=== PATIENT | female | born 1985 | race Caucasian/White ===

== ENCOUNTER 2021-09-21 12:43 | Outpatient (RCR) | payer MEDICAID, MEDICARE, OTHER | END 2021-10-19 | disposition home or self-care (01) | LOC: ONC 12:43 | PROVIDERS: ATTEND Internal Medicine Hematology & Oncology | DX: D45 Polycythemia vera (principal) ==

== ENCOUNTER 2021-12-21 13:10 | Outpatient (RCR) | payer MEDICARE, MEDICAID ==
[2021-12-21 13:33] LABS: BASOPHILS % (AUTO) 0 % (0-10); EOSINOPHILS # (AUTO) 0.1 10^3/uL (0.0-0.3); EOSINOPHILS % (AUTO) 1 % (0-10); HEMATOCRIT 40 % (35-52); HEMOGLOBIN 14.2 g/dL (11.5-16.0); LYMPHOCYTES # (AUTO) 1.5 10^3/uL (1.0-4.0); LYMPHOCYTES % (AUTO) 24 % (12-44); MEAN CORPUSCULAR HEMOGLOBIN 39 pg (25-34); MEAN CORPUSCULAR HGB CONC 36 g/dL (32-36); MEAN CORPUSCULAR VOLUME 107 fL (80-99); MEAN PLATELET VOLUME 9.2 fL (9.0-12.2); MONOCYTES # (AUTO) 0.4 10^3/uL (0.0-1.0); MONOCYTES % (AUTO) 6 % (0-12); NEUTROPHILS # (AUTO) 4.4 10^3/uL (1.8-7.8); NEUTROPHILS % (AUTO) 69 % (42-75); PLATELET COUNT 236 10^3/uL (130-400); WHITE BLOOD COUNT 6.5 10^3/uL (4.3-11.0)
== END 2022-01-19 | disposition home or self-care (01) ==
LOC: ONC 13:10
PROVIDERS: ATTEND Internal Medicine Hematology & Oncology
DX: D45 Polycythemia vera (principal); I10 Essential (primary) hypertension; K21.9 Gastro-esophageal reflux disease without esophagitis; E78.2 Mixed hyperlipidemia; E66.01 Morbid (severe) obesity due to excess calories
CPT/HCPCS: 85025; G0463; 36415; 99213

== ENCOUNTER 2022-03-03 14:40 | Emergency (ER) | payer OTHER ==
[~2022-03-03] VITALS: Ht 162 cm; Wt 128.6 kg
--- NOTE | 2022-03-03 14:50 | ED Cough/URI ---
General Chief Complaint: Abdominal/GI Problems Stated Complaint: ABD PAIN Nursing Triage Note: PT TO [facility] WITH CC OF RT SIDE ABD PAIN AND COUGHING UP BLOOD, DENIES FEVER OR VOMITING. TAKES CA PILLS FOR LOW WBC'S, DIARRHEA 5-6 TIMES A DAY, DENIES URINARY SYMPTOMS. SON WAS SICK A FEW DAYS AGO WITH BRONCHITIS Source: patient Exam Limitations: no limitations History of Present Illness Date Seen by Provider: Mar 03, 2022 Time Seen by Provider: 14:41 Initial Comments 36-year-old female presents with cough, hemoptysis right chest wall and lateral abdominal pain. She states symptoms started 2 to 3 days ago. She tells me that she has chronic allergies and all of her illnesses tend to start as allergy symptoms. Is worse in the last couple of days. She was going to see her primary care doctor today but she told him on the phone that she was coughing up blood and they advised she come to the emergency department. She arrives via am bulance stating she has had a worsening cough with productive sputum for the last 2 days. Today it was blood-tinged with bright red blood a couple times. She tells me she had some loose stools yesterday, 5 times without any blood. No urinary symptoms. She has a sharp stabbing pain in her right chest and right lateral abdominal jang with coughing. No pain outside of this. No history of DVT, PE. She is not on blood thinning medicines. She does have a history of low white blood cells and takes an oral medication to help with this. Allergies and Home Medications Allergies Coded Allergies: No Known Drug Allergies (Unverified , 03/03/22) Patient Home Medication List Home Medication List Reviewed: Yes Sulfamethoxazole/Trimethoprim (Bactrim Ds Tablet) 1 Each Tablet, 1 EACH PO BID Prescribed by: ANEL ALCOCER MD on 03/03/22 5184 Review of Systems Review of Systems Constitutional: no symptoms reported EENTM: nose congestion Respiratory: cough Cardiovascular: no symptoms reported Gastrointestinal: abdominal pain Genitourinary: no symptoms reported Musculoskeletal: muscle pain Psychiatric/Neurological: No Symptoms Reported Hematologic/Lymphatic: No Symptoms Reported Immunological/Allergic: no symptoms reported Past Qionhju-Ifnecu-Zmacwb Hx Patient Social History Tobacco Use?: No Use of E-Cig and/or Vaping dev: No Substance use?: No Alcohol Use?: No Family Medical History Reviewed Nursing Family Hx No Pertinent Family Hx Physical Exam Vital Signs - First Documented 03/03/22 14:42 Temp 36.2 Pulse 106 Resp 20 B/P (MAP) 126/92 (103) Pulse Ox 98 O2 Delivery Room Air Capillary Refill : Less Than 3 Seconds Height: '" Weight: lbs. oz. kg; 49.00 BMI Method: General Appearance: WD/WN, no apparent distress HEENT: normal ENT inspection, TMs normal, pharynx normal Neck: non-tender, full range of motion, supple, normal inspection Respiratory: chest non-tender, normal breath sounds, no respiratory distress, no accessory muscle use, wheezing (Slight expiratory wheezes bilaterally.) Cardiovascular: no edema, no gallop, no JVD, no murmur, tachycardia Gastrointestinal: normal bowel sounds, non tender, soft, no organomegaly, no pulsatile mass Extremities: non-tender, normal inspection, no pedal edema, no calf tenderness Neurologic/Psychiatric: alert, normal mood/affect, oriented x 3 Skin: normal color, warm/dry Progress/Results/Core Measures Suspected Sepsis SIRS Temperature: Pulse: 106 Respiratory Rate: 20 Laboratory Tests 03/03/22 14:50: White Blood Count 5.8 Blood Pressure 126 /92 Mean: 103 Laboratory Tests 03/03/22 14:50: Creatinine 0.82, Platelet Count 181 Results/Orders Lab Results Laboratory Tests Test 03/03/22 14:50 Range/Units White Blood Count 5.8 4.3-11.0 10^3/uL Red Blood Count 3.60 L 3.80-5.11 10^6/uL Hemoglobin 13.2 11.5-16.0 g/dL Hematocrit 39 35-52 % Mean Corpuscular Volume 108 H 80-99 fL Mean Corpuscular Hemoglobin 37 H 25-34 pg Mean Corpuscular Hemoglobin Concent 34 32-36 g/dL Red Cell Distribution Width 14.3 10.0-14.5 % Platelet Count 181 130-400 10^3/uL Mean Platelet Volume 9.4 9.0-12.2 fL Immature Granulocyte % (Auto) 0 % Neutrophils (%) (Auto) 72 42-75 % Lymphocytes (%) (Auto) 19 12-44 % Monocytes (%) (Auto) 8 0-12 % Eosinophils (%) (Auto) 1 0-10 % Basophils (%) (Auto) 0 0-10 % Neutrophils # (Auto) 4.1 1.8-7.8 10^3/uL Lymphocytes # (Auto) 1.1 1.0-4.0 10^3/uL Monocytes # (Auto) 0.5 0.0-1.0 10^3/uL Eosinophils # (Auto) 0.1 0.0-0.3 10^3/uL Basophils # (Auto) 0.0 0.0-0.1 10^3/uL Immature Granulocyte # (Auto) 0.0 0.0-0.1 10^3/uL D-Dimer 3.87 H 0.00-0.49 UG/ML Sodium Level 138 135-145 MMOL/L Potassium Level 4.1 3.6-5.0 MMOL/L Chloride Level 109 H 98-107 MMOL/L Carbon Dioxide Level 21 21-32 MMOL/L Anion Gap 8 5-14 MMOL/L Blood Urea Nitrogen 13 7-18 MG/DL Creatinine 0.82 0.60-1.30 MG/DL Estimat Glomerular Filtration Rate 94 BUN/Creatinine Ratio 16 Glucose Level 107 H 70-105 MG/DL Calcium Level 9.1 8.5-10.1 MG/DL My Orders Orders - ANEL ALCOCER DO Chest 1 View, Ap/Pa Only (03/03/22 14:48) Basic Metabolic Panel (03/03/22 14:48) Cbc With Automated Diff (03/03/22 14:48) Albuterol/Ipra Inhalation Soln (Duoneb I (03/03/22 15:00) Prednisone Tablet (Deltasone Tablet) (03/03/22 15:00) Svn Small Volume Nebulizer (03/03/22 14:49) Fibrin Degradation Products (03/03/22 14:50) Blood Culture (03/03/22 15:08) Ns Iv 1000 Ml (Sodium Chloride 0.9%) (03/03/22 15:15) Ceftriaxone 1 Gm Pre-Mix (Rocephin 1 Gm (03/03/22 15:15) Blood Culture (03/03/22 15:28) Medications Given in ED Current Medications Medications Dose Ordered Sig/Marissa Route Start Time Stop Time Status Last Admin Dose Admin Albuterol/ Ipratropium 3 ml ONCE ONCE INH 03/03/22 15:00 03/03/22 15:01 DC 03/03/22 15:01 3 ML Ceftriaxone Sodium/Dextrose 50 ml @ 100 mls/hr ONCE ONCE IV 03/03/22 15:15 03/03/22 15:44 03/03/22 15:23 100 MLS/HR Prednisone 50 mg ONCE ONCE PO 03/03/22 15:00 03/03/22 15:01 DC 03/03/22 15:01 50 MG Vital Signs/I&O 03/03/22 14:42 Temp 36.2 Pulse 106 Resp 20 B/P (MAP) 126/92 (103) Pulse Ox 98 O2 Delivery Room Air Capillary Refill : Less Than 3 Seconds Blood Pressure Mean: 103 Departure Communication (Admissions) Patient is hemodynamically stable. No hypoxia. Mild tachycardia which improved with IV fluids. Chest x-ray shows right lower lobe pneumonia. Exam is reassuring. Discharged home with oral antibiotics after given first dose of IV antibiotics here. She is comfortable agreeable current plan of care Impression Primary Impression: Community acquired pneumonia Qualified Codes: J18.9 - Pneumonia, unspecified organism Disposition: HOME, SELF-CARE Condition: Stable Departure-Patient Inst. Referrals: [facility] (PCP/Family) Primary Care Physician Patient Instructions: Community-Acquired Pneumonia in Adults Add. Discharge Instructions: Take the antibiotics as prescribed until they are gone. Increase your fluids at home, rest. Return to the emergency department for any severe concerns. Return to the ER immediately if you have severe shortness of breath or if your symptoms change in any way concerning to you. Follow up with your primary doctor for any non emergent needs. All discharge instructions reviewed with patient and/or family. Voiced understanding. Scripts Sulfamethoxazole/Trimethoprim (Bactrim Ds Tablet) 1 Each Tablet 1 EACH PO BID for 7 Days, #7 TAB Prov: ANEL ALCOCER DO 03/03/22 ANEL ALCOCER DO Mar 03, 2022 14:50
[2022-03-03] MEDS ORDERED: predniSONE 20 MG TAB PO ONE (15:00)
[2022-03-03] MEDS ORDERED: RT-ALBUTEROL/IPRATROPIUM 3 ML (DUONEB) VIAL INH ONE (15:00)
[2022-03-03 15:06] LABS: BASOPHILS % (AUTO) 0 % (0-10); EOSINOPHILS # (AUTO) 0.1 10^3/uL (0.0-0.3); EOSINOPHILS % (AUTO) 1 % (0-10); HEMATOCRIT 39 % (35-52); HEMOGLOBIN 13.2 g/dL (11.5-16.0); LYMPHOCYTES # (AUTO) 1.1 10^3/uL (1.0-4.0); LYMPHOCYTES % (AUTO) 19 % (12-44); MEAN CORPUSCULAR HEMOGLOBIN 37 pg (25-34); MEAN CORPUSCULAR HGB CONC 34 g/dL (32-36); MEAN CORPUSCULAR VOLUME 108 fL (80-99); MEAN PLATELET VOLUME 9.4 fL (9.0-12.2); MONOCYTES # (AUTO) 0.5 10^3/uL (0.0-1.0); MONOCYTES % (AUTO) 8 % (0-12); NEUTROPHILS # (AUTO) 4.1 10^3/uL (1.8-7.8); NEUTROPHILS % (AUTO) 72 % (42-75); PLATELET COUNT 181 10^3/uL (130-400); WHITE BLOOD COUNT 5.8 10^3/uL (4.3-11.0)
--- NOTE | 2022-03-03 15:09 | Diagnostic Imaging Report ---
CLINICAL INDICATION: Patient with cough. EXAM: Portable chest x-ray, upright view. COMPARISON: None. FINDINGS: Lungs/pleura: There is a small area of patchy consolidation involving the right lung base concerning for pneumonia. The remainder of the lungs are clear. There is no pneumothorax. There is no pleural effusion. Mediastinum: Unremarkable. Pulmonary vasculature: Unremarkable. Heart: Unremarkable. Bones/extrathoracic soft tissue: There are degenerative spurs involving the lumbar spine. IMPRESSION: Right lower lobe pneumonia. Dictated by: Dictated on workstation # [id number]
[2022-03-03] MEDS ORDERED: cefTRIAXone 1 GM PRE-MIX 50 ML IV ONE (15:15)
[2022-03-03] MEDS ORDERED: NS IV 1000 ML 1,000 ML IV SCH (15:15)
[2022-03-03 15:18] LABS: POTASSIUM 4.1 MMOL/L (3.6-5.0)
[2022-03-03 15:19] LABS: CALCIUM 9.1 MG/DL (8.5-10.1)
[2022-03-03 15:24] LABS: CREATININE SERUM 0.82 MG/DL (0.60-1.30)
[2022-03-03] MEDS ORDERED: SULF1TAB38 PO (15:24)
[2022-03-03 16:23] VITALS: BP 132/95
== END 2022-03-03 16:23 | disposition home or self-care (01) ==
LOC: EDUNIT# 14:40 → ER 14:42
DX: J18.1 Lobar pneumonia, unspecified organism (principal); R00.0 Tachycardia, unspecified
CPT/HCPCS: 36415; 71045; 80048; 85025; 85379; 87040

== ENCOUNTER 2022-03-18 12:45 | Inpatient (IN) | payer MEDICARE, MEDICAID ==
[~2022-03-18] VITALS: Ht 162 cm; Wt 130.5 kg
[~2022-03-18 12:45] MED LIST: SULF1TAB38 PO
--- NOTE | 2022-03-18 12:57 | ED Cough/URI ---
General Chief Complaint: Cough/Cold/Flu Symptoms Stated Complaint: BRONCHITIS Source: patient Exam Limitations: no limitations History of Present Illness Date Seen by Provider: Mar 18, 2022 Time Seen by Provider: 12:55 Initial Comments to ER by EMS from home with reports of productive cough shortness of breath for 2 weeks. She is been treated for pneumonia and bronchitis. She finished her antibiotics states that she takes hydroxychloroquine for high red blood cell count, high platelet count and low white blood cells. Timing/Duration: just prior to arrival Severity/Quality: productive cough Prior Episodes/Possible Cause: no prior episodes Associated Symptoms: cough Allergies and Home Medications Allergies Coded Allergies: No Known Drug Allergies (Unverified , 03/03/22) Patient Home Medication List Home Medication List Reviewed: Yes Sulfamethoxazole/Trimethoprim (Bactrim Ds Tablet) 1 Each Tablet, 1 EACH PO BID Prescribed by: ANEL ALCOCER MD on 03/03/22 1524 Review of Systems Review of Systems Constitutional: see HPI; No chills EENTM: see HPI Respiratory: see HPI, cough, short of breath Cardiovascular: no symptoms reported Genitourinary: no symptoms reported Musculoskeletal: no symptoms reported Skin: no symptoms reported Psychiatric/Neurological: No Symptoms Reported Hematologic/Lymphatic: No Symptoms Reported Immunological/Allergic: no symptoms reported Past Pynrnqj-Qkwwmo-Ymkqmk Hx Family Medical History No Pertinent Family Hx Physical Exam Vital Signs - First Documented 03/18/22 03/18/22 12:45 13:05 Temp 36.2 Pulse 108 Resp 20 B/P (MAP) 135/80 (98) O2 Delivery Room Air Capillary Refill : Height: '" Weight: lbs. oz. kg; 49.00 BMI Method: General Appearance: WD/WN, no apparent distress Eyes: Bilateral Eye Normal Inspection, Bilateral Eye PERRL, Bilateral Eye EOMI HEENT: PERRL/EOMI, normal ENT inspection Neck: non-tender, full range of motion Respiratory: normal breath sounds, no respiratory distress, no accessory muscle use Cardiovascular: regular rate, rhythm, no murmur Gastrointestinal: normal bowel sounds, non tender, soft Neurologic/Psychiatric: alert, normal mood/affect, oriented x 3 Skin: normal color, warm/dry Focused Exam Lactate Level 03/18/22 13:29: Lactic Acid Level 0.86 Lactic Acid Level Laboratory Tests Test 03/18/22 13:29 Lactic Acid Level 0.86 MMOL/L (0.50-2.00) Progress/Results/Core Measures Suspected Sepsis SIRS Temperature: Pulse: Respiratory Rate: Laboratory Tests 03/18/22 13:02: White Blood Count 5.7 Blood Pressure / Mean: 03/18/22 13:29: Lactic Acid Level 0.86 Laboratory Tests 03/18/22 13:02: Creatinine 0.82, Platelet Count 304, Total Bilirubin 0.8 Results/Orders Lab Results Laboratory Tests Test 03/18/22 13:02 03/18/22 13:29 Range/Units White Blood Count 5.7 4.3-11.0 10^3/uL Red Blood Count 3.42 L 3.80-5.11 10^6/uL Hemoglobin 12.6 11.5-16.0 g/dL Hematocrit 36 35-52 % Mean Corpuscular Volume 106 H 80-99 fL Mean Corpuscular Hemoglobin 37 H 25-34 pg Mean Corpuscular Hemoglobin Concent 35 32-36 g/dL Red Cell Distribution Width 13.2 10.0-14.5 % Platelet Count 304 130-400 10^3/uL Mean Platelet Volume 8.9 L 9.0-12.2 fL Immature Granulocyte % (Auto) 1 % Neutrophils (%) (Auto) 67 42-75 % Lymphocytes (%) (Auto) 23 12-44 % Monocytes (%) (Auto) 8 0-12 % Eosinophils (%) (Auto) 1 0-10 % Basophils (%) (Auto) 0 0-10 % Neutrophils # (Auto) 3.9 1.8-7.8 10^3/uL Lymphocytes # (Auto) 1.3 1.0-4.0 10^3/uL Monocytes # (Auto) 0.4 0.0-1.0 10^3/uL Eosinophils # (Auto) 0.0 0.0-0.3 10^3/uL Basophils # (Auto) 0.0 0.0-0.1 10^3/uL Immature Granulocyte # (Auto) 0.1 0.0-0.1 10^3/uL D-Dimer > 20.00 H 0.00-0.49 UG/ML Sodium Level 139 135-145 MMOL/L Potassium Level 3.3 L 3.6-5.0 MMOL/L Chloride Level 104 98-107 MMOL/L Carbon Dioxide Level 22 21-32 MMOL/L Anion Gap 13 5-14 MMOL/L Blood Urea Nitrogen 13 7-18 MG/DL Creatinine 0.82 0.60-1.30 MG/DL Estimat Glomerular Filtration Rate 94 BUN/Creatinine Ratio 16 Glucose Level 110 H 70-105 MG/DL Calcium Level 9.4 8.5-10.1 MG/DL Corrected Calcium 9.6 8.5-10.1 MG/DL Total Bilirubin 0.8 0.1-1.0 MG/DL Aspartate Amino Transf (AST/SGOT) 11 5-34 U/L Alanine Aminotransferase (ALT/SGPT) 31 0-55 U/L Alkaline Phosphatase 208 H 40-136 U/L Total Protein 8.1 6.4-8.2 GM/DL Albumin 3.8 3.2-4.5 GM/DL Serum Test, Qualitative NEGATIVE NEGATIVE Lactic Acid Level 0.86 0.50-2.00 MMOL/L My Orders Orders - DILLAN DURBIN APRN Chest 1 View, Ap/Pa Only (03/18/22 12:50) Cbc With Automated Diff (03/18/22 12:50) Comprehensive Metabolic Panel (03/18/22 12:50) Fibrin Degradation Products (03/18/22 12:50) Hcg,Qualitative Serum (03/18/22 12:50) Ed Iv/Invasive Line Start (03/18/22 12:50) Ekg Tracing (03/18/22 12:57) Ct Angio Chest W (03/18/22 13:19) Blood Culture (03/18/22 13:20) Lactic Acid Analyzer (03/18/22 13:20) Iohexol Injection (Omnipaque 350 Mg/Ml 1 (03/18/22 13:45) Received Contrast (Hold Metformin- Contr (03/18/22 13:45) Ns (Ivpb) (Sodium Chloride 0.9% Ivpb Bag (03/18/22 13:45) Sodium Chloride Flush (Catheter Flush Sy (03/18/22 13:45) Ed Admission (Communication) (03/18/22 14:14) Cefepime Injection (Maxipime Injection) (03/18/22 14:15) Vancomycin Injection (Vancomycin Injecti (03/18/22 14:15) Hydrocodone/Apap 5/325 Tablet (Lortab 5 (03/18/22 14:15) Ketorolac Injection (Toradol Injection) (03/18/22 14:15) Medications Given in ED Current Medications Medications Dose Ordered Sig/Marissa Route Start Time Stop Time Status Last Admin Dose Admin Acetaminophen/ Hydrocodone Bitart 1 ea ONCE ONCE PO 03/18/22 14:15 03/18/22 14:17 DC 03/18/22 14:36 1 EA Cefepime HCl 1000 mg/Sodium Chloride 50 ml @ 100 mls/hr ONCE ONCE IV 03/18/22 14:15 03/18/22 14:44 DC 03/18/22 14:36 100 MLS/HR Iohexol 100 ml ONCE ONCE IV 03/18/22 13:45 03/18/22 13:46 DC 03/18/22 13:58 88 ML Ketorolac Tromethamine 15 mg ONCE ONCE IVP 03/18/22 14:15 03/18/22 14:17 DC 03/18/22 14:37 15 MG Sodium Chloride 10 ml NEEDED PRN IV 03/18/22 13:45 03/18/22 13:58 10 ML Sodium Chloride 100 ml ONCE ONCE IV 03/18/22 13:45 03/18/22 13:46 DC 03/18/22 13:58 80 ML Vancomycin HCl 1000 mg/Sodium Chloride 250 ml @ 250 mls/hr ONCE ONCE IV 03/18/22 14:15 03/18/22 15:14 DC 03/18/22 15:11 250 MLS/HR Vital Signs/I&O 03/18/22 03/18/22 12:45 13:05 Temp 36.2 Pulse 108 Resp 20 B/P (MAP) 135/80 (98) O2 Delivery Room Air Capillary Refill : Departure Communication (Admissions) 1416-I have discussed the case with Dr. Morales from surgery here. Radiologist recommendation for urgent decompression however he does not feel that is necessary based on review of the images. Clinically she is stable and does not appear to be in any sort of distress. There is no jugular vein distention, she is 99 to 100% SPO2 on room air, respiratory rate is normal at 20-22, blood pressure is normal at 166/[address]. [address] Horne cefepime vancomycin and plan to do video-assisted thoracotomy first of the week. Family Conversation NAME: ANDREW BAEZ MED REC#: [id number] PT STATUS: REG ER : 1985 PHYSICIAN: DILLAN DURBIN APRN ADMIT DATE: 03/18/22/ER Draft Date of Exam:03/18/22 CT ANGIO CHEST W PROCEDURE: CT angiography of the chest with contrast. TECHNIQUE: Multiple contiguous axial images were obtained through the chest after uneventful bolus administration of intravenous contrast. 3D reconstructed CTA MIP acquisitions were also performed. Auto Exposure Controls were utilized during the CT exam to meet ALARA standards for radiation dose reduction. INDICATION: Right lung infiltrate with dyspnea and pneumothorax. COMPARISON: Correlation is made to chest radiograph of earlier in the day. FINDINGS: Cavitary infiltrate in the right lower lobe is present with moderate surrounding pleural fluid and associated gas within the pleural fluid. There is also right pneumothorax with mild leftward shift of mediastinal structures. Minimal subpleural nodules are seen in the periphery of the lingula and left lower lobe without additional consolidation identified. There are mildly prominent mediastinal lymph nodes without pathologically enlarged adenopathy. No significant pericardial fluid or left pleural effusion is identified. Upper abdominal sections reveal hepatic steatosis. The left hepatic branch arises directly from the abdominal aorta. IMPRESSION: Extensive cavitary pneumonia involving the right lower lobe with breach of visceral pleura resulting in right hydropneumothorax. There does appear to be leftward shift of mediastinal structures indicating possible tension pneumothorax, and clinical correlation and possible urgent decompression would be useful. Dictated on workstation # [id number] Dict: 03/18/22 1402 Trans: 03/18/22 1413 [id number] Interpreted by: ALICIA ACUNA MD Electronically signed by: NAME: ANDREW BAEZ [facility] REC#: [id number] PT STATUS: REG ER : 1985 PHYSICIAN: DILLAN DURBIN APRN ADMIT DATE: 03/18/22/ER Draft Date of Exam:03/18/22 CHEST 1 VIEW, AP/PA ONLY HISTORY: Shortness of air, right-sided chest pain. COMPARISON: 03/03/2022. TECHNIQUE: Frontal view of the chest. FINDINGS: There is dense airspace consolidation in the right lung base. There does appear to be a small right apical pneumothorax measuring about 1.4 cm at the apex. The left lung is clear. The heart is normal in size. IMPRESSION: 1. Small apical right pneumothorax. 2. Dense consolidation in the right lung base, likely infection. Findings discussed with Dillan Durbin APRN, by Dr. Contreras, on 03/18/2022 1:42 p.m. Dictated on workstation # [id number] Dict: 03/18/22 1340 Trans: 03/18/22 1345 [id number] Interpreted by: SHANE CONTRERAS MD Electronically signed by: Impression Primary Impression: Hydropneumothorax Additional Impression: Cavitary lesion of lung Disposition: ADMITTED INPATIENT Condition: Stable Admissions Decision to Admit Reason: Admit from ER (General) Decision to Admit/Date: Mar 18, 2022 Time/Decision to Admit Time: 14:18 Departure-Patient Inst. Referrals: [facility] (PCP/Family) Primary Care Physician DILLAN DURBIN APRN Mar 18, 2022 12:57
[2022-03-18 13:09] LABS: BASOPHILS % (AUTO) 0 % (0-10); EOSINOPHILS % (AUTO) 1 % (0-10); HEMATOCRIT 36 % (35-52); HEMOGLOBIN 12.6 g/dL (11.5-16.0); LYMPHOCYTES # (AUTO) 1.3 10^3/uL (1.0-4.0); LYMPHOCYTES % (AUTO) 23 % (12-44); MEAN CORPUSCULAR HEMOGLOBIN 37 pg (25-34); MEAN CORPUSCULAR HGB CONC 35 g/dL (32-36); MEAN CORPUSCULAR VOLUME 106 fL (80-99); MEAN PLATELET VOLUME 8.9 fL (9.0-12.2); MONOCYTES # (AUTO) 0.4 10^3/uL (0.0-1.0); MONOCYTES % (AUTO) 8 % (0-12); NEUTROPHILS # (AUTO) 3.9 10^3/uL (1.8-7.8); NEUTROPHILS % (AUTO) 67 % (42-75); PLATELET COUNT 304 10^3/uL (130-400); WHITE BLOOD COUNT 5.7 10^3/uL (4.3-11.0)
[2022-03-18 13:24] LABS: ALBUMIN 3.8 GM/DL (3.2-4.5)
[2022-03-18 13:25] LABS: POTASSIUM 3.3 MMOL/L (3.6-5.0)
[2022-03-18 13:26] LABS: CALCIUM 9.4 MG/DL (8.5-10.1)
[2022-03-18 13:27] LABS: TOTAL PROTEIN 8.1 GM/DL (6.4-8.2)
[2022-03-18 13:29] LABS: BILIRUBIN,TOTAL 0.8 MG/DL (0.1-1.0)
[2022-03-18 13:30] LABS: CREATININE SERUM 0.82 MG/DL (0.60-1.30)
[2022-03-18] MEDS ORDERED: NS 100 ML (IVPB) BAG IV ONE (13:45)
[2022-03-18] MEDS ORDERED: IOHEXOL 350 MG/ML 100 ML (OMNIPAQUE 350) VIAL IV ONE (13:45)
[2022-03-18] MEDS ORDERED: HOLD METFORMIN - RECEIVED CONTRAST 20 ML VIAL IV SCH (13:45)
--- NOTE | 2022-03-18 13:47 | Diagnostic Imaging Report ---
HISTORY: Shortness of air, right-sided chest pain. COMPARISON: 03/03/2022. TECHNIQUE: Frontal view of the chest. FINDINGS: There is dense airspace consolidation in the right lung base. There does appear to be a small right apical pneumothorax measuring about 1.4 cm at the apex. The left lung is clear. The heart is normal in size. IMPRESSION: 1. Small apical right pneumothorax. 2. Dense consolidation in the right lung base, likely infection. Findings discussed with Gregory Durbin APRN, by Dr. Hughes, on 03/18/2022 1:42 p.m. Dictated by: Dictated on workstation # [id number]
[2022-03-18] MEDS: CATHETER FLUSH 10 ML SYR IV PRN (13:58)
--- NOTE | 2022-03-18 14:13 | Diagnostic Imaging Report ---
PROCEDURE: CT angiography of the chest with contrast. TECHNIQUE: Multiple contiguous axial images were obtained through the chest after uneventful bolus administration of intravenous contrast. 3D reconstructed CTA MIP acquisitions were also performed. Auto Exposure Controls were utilized during the CT exam to meet ALARA standards for radiation dose reduction. INDICATION: Right lung infiltrate with dyspnea and pneumothorax. COMPARISON: Correlation is made to chest radiograph of earlier in the day. FINDINGS: Cavitary infiltrate in the right lower lobe is present with moderate surrounding pleural fluid and associated gas within the pleural fluid. There is also right pneumothorax with mild leftward shift of mediastinal structures. Minimal subpleural nodules are seen in the periphery of the lingula and left lower lobe without additional consolidation identified. There are mildly prominent mediastinal lymph nodes without pathologically enlarged adenopathy. No significant pericardial fluid or left pleural effusion is identified. Upper abdominal sections reveal hepatic steatosis. The left hepatic branch arises directly from the abdominal aorta. IMPRESSION: Extensive cavitary pneumonia involving the right lower lobe with breach of visceral pleura resulting in right hydropneumothorax. There does appear to be leftward shift of mediastinal structures indicating possible tension pneumothorax, and clinical correlation and possible urgent decompression would be useful. Dictated by: Dictated on workstation # [id number]
[2022-03-18] MEDS ORDERED: KETOROLAC 30 MG/ML VIAL IVP ONE (14:15)
[2022-03-18] MEDS ORDERED: VANCOMYCIN INJECTION 1,000 MG in NS (IVPB) 250 ML IV ONE (14:15)
[2022-03-18] MEDS ORDERED: CEFEPIME INJECTION 1,000 MG in NS (IVPB) 50 ML IV ONE (14:15)
[2022-03-18] MEDS ORDERED: HYDROcodone/APAP 5 MG/325 MG (LORTAB) TAB PO ONE (14:15)
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
[2022-03-18] MEDS ORDERED: NS IV 500 ML 500 ML IV PRN (17:00)
[2022-03-18] MEDS ORDERED: polyethylene glycoL POWDER 17 GM (MIRALAX) PACK PO PRN (17:00)
[2022-03-18] MEDS ORDERED: cloNIDine 0.1 MG (CATAPRES) TAB PO PRN (17:00)
[2022-03-18] MEDS ORDERED: MILK OF MAGNESIA 400 MG/5 ML 30 ML UDC PO PRN (17:00)
[2022-03-18] MEDS ORDERED: diphenhydrAMINE 25 MG TAB (BENADRYL) PO PRN (17:00)
[2022-03-18] MEDS ORDERED: ONDANSETRON 4 MG (ZOFRAN) ORAL DISSOLVE TAB PO PRN (17:00)
[2022-03-18] MEDS ORDERED: ONDANSETRON 4 MG/2 ML (SDV) Z0FRAN IV PRN (17:00)
[2022-03-18] MEDS ORDERED: CALCIUM CARBONATE 500 MG (TUMS) TAB.CHEW PO PRN (17:00)
[2022-03-18] MEDS ORDERED: VANCOMYCIN INJECTION 0.1 MG in NS (IVPB) 250 ML IV SCH (17:00)
[2022-03-18] MEDS ORDERED: MELATONIN 3 MG TABLET PO PRN (17:00)
[2022-03-18] MEDS ORDERED: LACTULOSE SYRUP 10GM/15ML (ENULOSE) 30ML UDC PO PRN (17:00)
[2022-03-18] MEDS ORDERED: ANTACID SUSP 30 ML UDC (MYLANTA) PO PRN (17:00)
[2022-03-18] MEDS ORDERED: BISACODYL 10 MG SUPP (DULCOLAX) PR PRN (17:00)
[2022-03-18] MEDS ORDERED: diphenhydrAMINE 50 MG/ML INJ (BENADRYL) IVP PRN (17:00)
[2022-03-18] MEDS ORDERED: NS IV 1000 ML 1,000 ML ONE (17:19)
[2022-03-18] MEDS ORDERED: VANCOMYCIN 1 GM/NS 250 ML IVPB IV NR ×2 (18:00)
[2022-03-18] MEDS ORDERED: CEFEPIME INJECTION 1,000 MG in NS (IVPB) 50 ML IV SCH (18:00)
[2022-03-18 18:07] VITALS: BP 135/80
--- NOTE | 2022-03-18 18:07 | Tele-ICU Consult ---
History of Present Illness History of Present Illness Date Seen by Provider: Mar 18, 2022 Time Seen by Provider: 18:06 Date of Admission (Tele-ICU Physician , consultation as per request of PCP Service provided via interactive audio and video telecommunications E-CARE system to a patient admitted to ICU bed in [facility]. Available chart/ vitals / labs / Images reviewed H&P is from ER notes Patient's information available about PMH, Shx, Fhx allergy reviewed inEMR. ROS as per chart and RN report Now in ICU, hemodynamically stable Video assessment done using teleICU camera, rest of exam as per RN Discussed with RN. Consultants: Hospital course: -ER - 2 weeks ago (03/03/22) she was brought to [facility] ED for right abdominal pain and diarrhea--> Dx with PNA , started on ABX abd steroids 03/18 - to ER with chest pain --> PNA, hydropneumothorax A/P RIGHT PNA , right hydropneumothorax/ suspected empyema ( most likely ruptures abscess) - abx started- will add anerobic coverage - Sx consulted - VATS planned - would consider to place chest tube for controlPTX and evacuation of empaema - if sx timing is delayed - montor PTX Immunocompromised status - on hydroxychloroquine - bacterial infection , Nonbacterial pathogens, opportunistic infection- all in differential -> will await cx Lines : , (Central Line Necessity Reviewed) Vasquez: OG: Nutrition: Analgesia: Anxiety/ delirium VTE Prophylaxis: Stress Ulcer Prophylaxis: Glycemic Control: Plans in collaboration with bedside consultants and IM MDs - discussed with Dr Horne Discussed with RN to reach out if any questions or concerns A total of 25 minutes of critical care time was devoted to this patient today, required to treat and/or prevent further deterioration of critical care co ndition ( as above ) . I am remotely monitoring this patient from another state. I am unable to do the bedside exam, and history/physical and pertinent information is taken from other notes in the computer and bedside staff. Allergies and Home Medications Allergies Coded Allergies: No Known Drug Allergies (Unverified , 03/03/22) Home Medications Sulfamethoxazole/Trimethoprim 1 Each Tablet, 1 EACH PO BID Prescribed by: ANEL ALCOCER MD on 03/03/22 1524 Past Medical/Social/Family Hx Patient Social History Tobacco Use?: Yes Tobacco type used: Cigarettes Smoking Status: Former Smoker (pt notes she quit smoking 2 weeks ago) Substance use?: No Alcohol Use?: No Pt stated abuse/neglect: No Immunizations Up To Date Influenza Vaccine Up-to-Date: No; Not Current Tetanus Booster (TDap): Unknown Current Status status: No Advance Directives: No Communicates: Verbally Primary Language: Cypriot Preferred Spoken Language: Cypriot Implanted or Applied Medical D: None Review of Systems Constitutional: see HPI Focused Exam Lactate Level 03/18/22 13:29: Lactic Acid Level 0.86 Height, Weight, BMI Height: '" Weight: lbs. oz. kg; 49.00 BMI Method: Exam Exam Patient acknowledged, consented, and participated in this virtual visit which was conducted using real time audio/video Vital Signs Date Time Temp Pulse Resp B/P (MAP) Pulse Ox O2 Delivery O2 Flow Rate FiO2 03/18/22 17:00 72 25 128/91 (103) 97 Room Air 03/18/22 16:30 76 26 135/91 (106) 97 03/18/22 16:30 76 03/18/22 16:19 36.2 77 18 140/115 Room Air 03/18/22 13:05 Room Air 03/18/22 12:45 36.2 108 20 135/80 (98) Height & Weight Height: '" Weight: lbs. oz. kg; 49.00 BMI Method: General Appearance: No Apparent Distress Gastrointestinal: normal bowel sounds, non tender, soft Results Lab Laboratory Tests 03/18/22 13:02 Assessment/Plan Assessment/Plan 1 MORALES HERNÁNDEZ MD Mar 18, 2022 18:06
--- NOTE | 2022-03-18 18:08 | History & Physical-Hospitalist ---
History of Present Illness HPI/Chief Complaint CC: Right sided empyema HPI: This is a 36yoWF clinic patient of [facility] who presented to the Er with worsened right sided chest pain and was found to have right sided empyema with cavitary lesion. Dr Morales evaluated her CT scan and is planning on chest tube/VATS procedure. IV antibiotics were broadened out by EICU after I discussed the case with Dr Brandt. TB r/o so she was placed in isolation. I also spoke to Dr Morales in-depth along with Gregory Durbin in ER. Currently patient is still having pleurisy and I ordered Toradol. I have reviewed [facility] last visit. Patient was placed on Bactrim for Strep A pharyngitis on 03/07/22. PMH: ADHD Anxiety HTN Bipolar 2 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 HLP GERD Source: patient, RN/MD, old records Exam Limitations: clinical condition Date Seen 03/18/22 Time Seen by a Provider: 18:00 Attending Physician [place] PCP Admitting Physician: Lucila Zhao DO Attending Physician: Lucila Zhao DO Referring Physician Date of Admission Mar 18, 2022 at 14:16 Home Medications & Allergies Home Medications Reviewed patient Home Medication Reconciliation performed by pharmacy medication reconciliations bottle house quality control technician and/or nursing. Patients Allergies have been reviewed. Allergies Allergies Coded Allergies No Known Drug Allergies (Hszvfohxgk06/13/22) Past Uflgzud-Zuzfzr-Dktmqj Hx Patient Social History Marrital Status: single Employed/Student: unemployed Tobacco Use?: Yes Tobacco type used: Cigarettes Smoking Status: Current Everyday Smoker Substance use?: No Alcohol Use?: No Pt feels they are or have been: No Immunizations Up To Date Tetanus Booster (TDap): Unknown Current Status status: No Advance Directives: No Communicates: Verbally Primary Language: Macedonian Preferred Spoken Language: Macedonian Implanted or Applied Medical D: None Past Medical History Surgeries: Section, Ear Surgery, Gallbladder, Tonsillectomy Pneumonia Heart Attack (pt states she had a heart attack giving to her son), High Cholesterol, Hypertension Gastroesophageal Reflux, Gall Bladder Disease Chronic Ear Infection Loss of Vision: Denies Hearing Impairment: Denies Blood Disorders: Yes (it sounds like pt has polycythemia) Family Medical History Cancer (Mother breast cancer at 21 / sister cervical and ovarian cancer at 40) Review of Systems Constitutional: see HPI, dizziness, fever, malaise, weakness EENTM: no symptoms reported Respiratory: cough, dyspnea on exertion, short of breath, wheezing Cardiovascular: chest pain Gastrointestinal: no symptoms reported Genitourinary: no symptoms reported Musculoskeletal: no symptoms reported Skin: no symptoms reported Psychiatric/Neurological: Anxiety, Depressed All Other Systems Reviewed Negative Unless Noted: Yes Physical Exam Physical Exam Vital Signs Vital Signs - First Documented 03/18/22 03/18/22 03/18/22 03/18/22 12:45 13:05 16:30 18:07 Temp 36.2 Pulse 108 Resp 20 B/P (MAP) 135/80 (98) Pulse Ox 97 O2 Delivery Room Air FiO2 21 Capillary Refill : Height, Weight, BMI Height: '" Weight: lbs. oz. kg; 49.00 BMI Method: General Appearance: Anxious, Chronically ill, Mild Distress Eyes: Right Eye Normal Inspection, Right Eye PERRL HEENT: PERRL/EOMI, Normal ENT Inspection, Pharynx Normal, Moist Mucous Membranes Neck: Full Range of Motion, Normal Inspection, Non Tender Respiratory: Chest Non Tender, Lungs Clear, No Respiratory Distress, Decreased Breath Sounds (RLL) Cardiovascular: Regular Rate, Rhythm, No Edema, No Gallop, No JVD, No Murmur, Normal Peripheral Pulses Gastrointestinal: Normal Bowel Sounds, No Organomegaly, No Pulsatile Mass, Non Tender, Soft Back: Normal Inspection, No CVA Tenderness, No Vertebral Tenderness Extremity: Normal Capillary Refill, Normal Inspection, Normal Range of Motion, Non Tender, No Calf Tenderness, No Pedal Edema Neurologic/Psychiatric: Alert, Oriented x3, No Motor/Sensory Deficits, avionics systems repairer II- XII Norm as Tested, Depressed Affect Skin: Normal Color, Warm/Dry Lymphatic: No Adenopathy Results Results/Procedures Labs Laboratory Tests 03/18/22 13:02 Patient resulted labs reviewed. 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
[2022-03-18] MEDS: NS IV 1000 ML 1,000 ML IV SCH (18:23)
[2022-03-18] MEDS: ENOXAPARIN 40 MG/0.4 ML (LOVENOX) SYR SC SCH (18:24)
[2022-03-18] MEDS ORDERED: RT-ALBUTEROL SULF 2.5 MG/3 ML PRE-MIX VIAL INH PRN (18:30)
[2022-03-18] MEDS: MEROPENEM 1,000 MG in NS (IVPB) 100 ML IV SCH (20:09)
[2022-03-18] MEDS ORDERED: LISI40TA9 PO (20:58)
[2022-03-18] MEDS ORDERED: TOPI25TA10 PO (20:58)
[2022-03-18] MEDS ORDERED: RT-ALBUTEROL SULF 2.5 MG/3 ML PRE-MIX VIAL INH SCH (21:00)
[2022-03-18] MEDS: KETOROLAC 15 MG/ML VIAL IV PRN (21:03)
[2022-03-18] MEDS: CEFEPIME INJECTION 1,000 MG in NS (IVPB) 50 ML IV SCH (21:03)
[2022-03-18] MEDS: SENNOSIDES 8.6 MG (SENOKOT) TAB PO SCH (21:32)
[2022-03-18] MEDS: DOCUSATE SODIUM 100 MG (COLACE) CAP PO SCH (21:32)
[2022-03-19] MEDS: MEROPENEM 1,000 MG in NS (IVPB) 100 ML IV SCH ×3 (01:11→18:10)
[2022-03-19] MEDS: CEFEPIME INJECTION 1,000 MG in NS (IVPB) 50 ML IV SCH ×4 (02:33→20:31)
[2022-03-19] MEDS: NS IV 1000 ML 1,000 ML IV SCH ×3 (02:34→15:30)
[2022-03-19] MEDS: PANTOPRAZOLE 40 MG (PROTONIX) TAB PO SCH (06:13)
[2022-03-19] MEDS: ENOXAPARIN 40 MG/0.4 ML (LOVENOX) SYR SC SCH ×2 (06:13→18:30)
[2022-03-19] MEDS: VANCOMYCIN 1250 MG/NS 250 ML IVPB IV SCH ×4 (06:13→18:10)
[2022-03-19] MEDS: KETOROLAC 15 MG/ML VIAL IV PRN ×2 (06:25→15:58)
[2022-03-19] MEDS ORDERED: RT-ALBUTEROL HFA 8.5 GM INHALER IH SCH (08:00)
--- NOTE | 2022-03-19 08:10 | Progress Note - Hospitalist ---
Subjective HPI/CC On Admission Date Seen by Provider: Mar 19, 2022 Time Seen by Provider: 11:00 CC: Right sided empyema HPI: This is a 36yoWF clinic patient of [facility] who presented to the Er with worsened right sided chest pain and was found to have right sided empyema with cavitary lesion. Dr Morales evaluated her CT scan and is planning on chest tube/VATS procedure. IV antibiotics were broadened out by EICU after I discussed the case with Dr Brandt. TB r/o so she was placed in isolation. I also spoke to Dr Morales in-depth along with Gregory Durbin in ER. Currently patient is still having pleurisy and I ordered Toradol. I have reviewed [facility] last visit. Patient was placed on Bactrim for Strep A pharyngitis on 03/07/22. PMH: ADHD Anxiety HTN Bipolar 2 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 HLP GERD Subjective/Events-last exam Much improved status TB Gold blood test pending Pain is improved No other concerns Review of Systems General: Fatigue, Malaise Pulmonary: Dyspnea, Cough Cardiovascular: Chest Pain Focused Exam Lactate Level 03/18/22 13:29: Lactic Acid Level 0.86 Objective Exam Vital Signs Vital Signs Date Time Temp Pulse Resp B/P (MAP) Pulse Ox O2 Delivery O2 Flow Rate FiO2 03/19/22 15:27 99 Room Air 03/19/22 15:00 93 25 115/65 (82) 03/19/22 12:00 35.7 03/18/22 20:53 6.00 03/18/22 18:07 21 Capillary Refill : General Appearance: No Apparent Distress, WD/WN, Chronically ill, Obese Respiratory: Crackles, Decreased Breath Sounds Cardiovascular: Regular Rate, Rhythm Results/Procedures Lab Laboratory Tests 03/19/22 10:00 03/19/22 14:15 Patient resulted labs reviewed. Assessment/Plan Assessment and Plan Assess & Plan/Chief Complaint Assessment: Acute respiratory failure Right sided empyema with cavitary lesion in need of VATS Right sided pleurisy Immunosuppressed on Hydroxyurea ADHD Anxiety HTN Bipolar 2 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 HLP GERD Plan: IV abx VATS O2 Pain control Lovenox Home meds MARGOTH ZHAO DO Mar 19, 2022 08:10
--- NOTE | 2022-03-19 08:20 | Diagnostic Imaging Report ---
INDICATION: Dyspnea. COMPARISON: 03/18/2022. DISCUSSION: Single portable upright view of the chest was obtained. Patchy infiltrates within the right lung base are stable. Normal heart size. Small right apical pneumothorax is stable. No osseous abnormality. IMPRESSION: 1. Stable chest including small right apical pneumothorax. Dictated by: Dictated on workstation # [id number]
[2022-03-19] MEDS: ZIPRASIDONE 20 MG (GEODON) CAP PO SCH ×2 (08:28→18:10)
[2022-03-19] MEDS: lisINopril 40 MG (PRINIVIL) TABLET PO SCH (08:29)
[2022-03-19] MEDS: DOCUSATE SODIUM 100 MG (COLACE) CAP PO SCH ×2 (08:29→20:33)
[2022-03-19] MEDS: LORATADINE (CLARITIN) 10 MG TAB PO SCH (08:29)
[2022-03-19] MEDS: SENNOSIDES 8.6 MG (SENOKOT) TAB PO SCH ×2 (08:29→20:33)
[2022-03-19] MEDS: buPROPion SR 150 MG (WELLBUTRIN SR) TAB PO SCH ×2 (08:29→20:33)
[2022-03-19 08:47] VITALS: BP 112/65
--- NOTE | 2022-03-19 09:41 | Tele-ICU Progress Note ---
Subjective Date Seen by a Provider: Mar 19, 2022 Time Seen by a Provider: 09:40 Subjective/Events-last exam (Tele-ICU Physician , consultation as per request of PCP Service provided via interactive audio and video telecommunications E-CARE system to a patient admitted to ICU bed in [facility]. Available chart/ vitals / labs / Images reviewed H&P is from ER notes Patient's information available about PMH, Shx, Fhx allergy reviewed inEMR. ROS as per chart and RN report Now in ICU, hemodynamically stable Video assessment done using teleICU camera, rest of exam as per RN Discussed with RN. Consultants: Hospital course: -ER - 2 weeks ago (03/03/22) she was brought to [facility] ED for right abdominal pain and diarrhea--> Dx with PNA , started on ABX abd steroids 03/18 - to ER with chest pain --> PNA, hydropneumothorax A/P RIGHT PNA , right hydropneumothorax/ suspected empyema ( most likely ruptures abscess) - abx started- will cont - Sx consulted - VATS planned - would consider to place chest tube for controlPTX and evacuation of empyema - if sx timing is delayed - montor PTX Immunocompromised status - on hydroxychloroquine - bacterial infection , Nonbacterial pathogens, opportunistic infection- all in differential -> will await cx will decrease IVF , reoplace lytes Lines : need iv ascess , (Central Line Necessity Reviewed) Vasquez: void OG: Nutrition: po Analgesia: nsaids/ steroids po Anxiety/ delirium VTE Prophylaxis: lovenox Stress Ulcer Prophylaxis: ppi Plans in collaboration with bedside consultants and IM MDs Discussed with RN to reach out if any questions or concerns A total of 25 minutes of critical care time was devoted to this patient today, required to treat and/or prevent further deterioration of critical care condition ( as above ) . I am remotely monitoring this patient from another state. I am unable to do the bedside exam, and history/physical and pertinent information is taken from other notes in the computer and bedside staff. Sepsis Event Evaluation Height, Weight, BMI Height: '" Weight: lbs. oz. kg; 49.38 BMI Method: Focused Exam Lactate Level 03/18/22 13:29: Lactic Acid Level 0.86 Exam Exam Patient acknowledged, consented, and participated in this virtual visit which was conducted using real time audio/video Vital Signs Date Time Temp Pulse Resp B/P (MAP) Pulse Ox O2 Delivery O2 Flow Rate FiO2 03/19/22 09:00 96 20 98 Room Air 03/19/22 08:47 36.9 93 92 03/19/22 08:00 93 22 112/65 (81) 92 Room Air 03/19/22 07:00 87 03/19/22 07:00 85 23 128/71 (90) 93 Room Air 03/19/22 06:00 90 16 139/92 (108) 96 Room Air 03/19/22 05:00 86 25 127/81 (96) 95 Room Air 03/19/22 04:00 95 Room Air 03/19/22 04:00 36.9 03/19/22 04:00 90 25 128/73 (91) 95 Room Air 03/19/22 03:00 84 24 137/79 (98) 94 Room Air 03/19/22 02:00 84 23 129/87 (101) 97 Room Air 03/19/22 01:00 80 03/19/22 01:00 78 25 137/87 (104) 98 Room Air 03/19/22 00:03 95 Room Air 03/19/22 00:00 85 15 126/87 (100) 96 Room Air 03/18/22 23:00 81 22 124/79 (94) 95 Room Air 03/18/22 22:00 87 25 124/74 (91) 91 Room Air 03/18/22 21:00 78 23 133/74 (93) 96 Room Air 03/18/22 20:53 95 Nasal Cannula 6.00 03/18/22 20:00 80 26 135/82 (99) 99 Room Air 03/18/22 20:00 96 Room Air 03/18/22 20:00 36.8 03/18/22 19:00 80 24 138/82 (100) 100 Room Air 03/18/22 19:00 80 03/18/22 18:49 Room Air 03/18/22 18:07 36.2 108 99 21 03/18/22 18:00 83 32 97 Room Air 03/18/22 17:00 72 25 128/91 (103) 97 Room Air 03/18/22 16:30 76 26 135/91 (106) 97 03/18/22 16:30 76 10/28/22 16:19 36.2 77 18 140/115 Room Air 03/18/22 13:05 Room Air 03/18/22 12:45 36.2 108 20 135/80 (98) I & O 03/19/22 07:00 Intake Total 3290 ml Output Total 0 ml Balance 3290 ml Height & Weight Height: '" Weight: lbs. oz. kg; 49.38 BMI Method: General Appearance: Anxious, Chronically ill, Mild Distress HEENT: PERRL/EOMI, Normal ENT Inspection, Pharynx Normal, Moist Mucous Membranes Neck: Full Range of Motion, Normal Inspection, Non Tender Respiratory: Chest Non Tender, Lungs Clear, No Respiratory Distress, Decreased Breath Sounds (RLL) Cardiovascular: Regular Rate, Rhythm, No Edema, No Gallop, No JVD, No Murmur, Normal Peripheral Pulses Gastrointestinal: normal bowel sounds, non tender, soft Extremity: Normal Capillary Refill, Normal Inspection, Normal Range of Motion, Non Tender, No Calf Tenderness, No Pedal Edema Neurologic/Psychiatric: Alert, Oriented x3, No Motor/Sensory Deficits, dean of [place] II- XII Norm as Tested, Depressed Affect Skin: Normal Color, Warm/Dry Lymphatic: No Adenopathy Results Lab Laboratory Tests 03/18/22 13:02 Assessment/Plan Assessment/Plan 1 MORALES HERNÁNDEZ MD Mar 19, 2022 09:41
[2022-03-19] MEDS ORDERED: KCL 20 MEQ TAB (K-DUR) PO ONE ×2 (09:45→15:30)
--- NOTE | 2022-03-19 09:49 | Progress Note - Surgery ---
BAKARI GREEN 03/19/22 0949: Subjective Date Seen by a Provider: Mar 19, 2022 Time Seen by a Provider: 09:44 Subjective/Events-last exam Patient is sitting up right in her bed this morning. She was placed in isolation due to possible TB (given her right lung cavitation and reported hemoptysis). States she continues to be short of breath but is on RA. Noted dry cough but denies any blood in her sputum currently. CXR today is stable with CXR from before showing small right apical pneumothorax and is consistent with right sided empyema. She denies any pain at present while she is laying in her bed, but says pleuritic chest pain is exacerbated by movement at times and when she has to take big breaths. Labs were unable to be drawn from the patient today. Review of Systems Pulmonary: Dyspnea, Cough, Pleuritic Chest Pain Cardiovascular: No: Chest Pain, Palpitations Gastrointestinal: No: Nausea, Vomiting, Abdominal Pain Musculoskeletal: neck pain (right), back pain (right ) Focused Exam Lactate Level 03/18/22 13:29: Lactic Acid Level 0.86 Objective Exam Vital Signs Date Time Temp Pulse Resp B/P (MAP) Pulse Ox O2 Delivery O2 Flow Rate FiO2 03/19/22 09:00 96 20 98 Room Air 03/19/22 08:47 36.9 93 92 03/19/22 08:00 93 22 112/65 (81) 92 Room Air 03/19/22 07:00 87 03/19/22 07:00 85 23 128/71 (90) 93 Room Air 03/19/22 06:00 90 16 139/92 (108) 96 Room Air 03/19/22 05:00 86 25 127/81 (96) 95 Room Air 03/19/22 04:00 95 Room Air 03/19/22 04:00 36.9 03/19/22 04:00 90 25 128/73 (91) 95 Room Air 03/19/22 03:00 84 24 137/79 (98) 94 Room Air 03/19/22 02:00 84 23 129/87 (101) 97 Room Air 03/19/22 01:00 80 03/19/22 01:00 78 25 137/87 (104) 98 Room Air 03/19/22 00:03 95 Room Air 03/19/22 00:00 85 15 126/87 (100) 96 Room Air 03/18/22 23:00 81 22 124/79 (94) 95 Room Air 03/18/22 22:00 87 25 124/74 (91) 91 Room Air 03/18/22 21:00 78 23 133/74 (93) 96 Room Air 03/18/22 20:53 95 Nasal Cannula 6.00 03/18/22 20:00 80 26 135/82 (99) 99 Room Air 03/18/22 20:00 96 Room Air 03/18/22 20:00 36.8 03/18/22 19:00 80 24 138/82 (100) 100 Room Air 03/18/22 19:00 80 03/18/22 18:49 Room Air 03/18/22 18:07 36.2 108 99 21 03/18/22 18:00 83 32 97 Room Air 03/18/22 17:00 72 25 128/91 (103) 97 Room Air 03/18/22 16:30 76 26 135/91 (106) 97 03/18/22 16:30 76 03/18/22 16:19 36.2 77 18 140/115 Room Air 03/18/22 13:05 Room Air 03/18/22 12:45 36.2 108 20 135/80 (98) I & O 03/19/22 07:00 Intake Total 3290 ml Output Total 0 ml Balance 3290 ml Capillary Refill : General Appearance: Anxious, Chronically ill, Mild Distress, Obese HEENT: PERRL/EOMI, Normal ENT Inspection, Pharynx Normal, Moist Mucous Membranes Neck: Full Range of Motion, Normal Inspection, Non Tender Respiratory: No Accessory Muscle Use, Decreased Breath Sounds (RLL), Other (dullness to percussion in right lung lobes and tenderness to palpation of the right anterior chest wall) Cardiovascular: Regular Rate, Rhythm, No Edema, No Gallop, No JVD, No Murmur, Normal Peripheral Pulses Gastrointestinal: normal bowel sounds, non tender, soft Extremity: Normal Capillary Refill, Normal Inspection, Normal Range of Motion, Non Tender, No Calf Tenderness, No Pedal Edema Neurologic/Psychiatric: Alert, Oriented x3, No Motor/Sensory Deficits, unpaid intern II- XII Norm as Tested, Depressed Affect Skin: Normal Color, Warm/Dry Lymphatic: No Adenopathy Results Lab Laboratory Tests 03/18/22 13:02: White Blood Count 5.7, Red Blood Count 3.42L, Hemoglobin 12.6, Hematocrit 36, Mean Corpuscular Volume 106H, Mean Corpuscular Hemoglobin 37H, Mean Corpuscular Hemoglobin Concent 35, Red Cell Distribution Width 13.2, Platelet Count 304, Mean Platelet Volume 8.9L, Immature Granulocyte % (Auto) 1, Neutrophils (%) (Auto) 67, Lymphocytes (%) (Auto) 23, Monocytes (%) (Auto) 8, Eosinophils (%) (Auto) 1, Basophils (%) (Auto) 0, Neutrophils # (Auto) 3.9, Lymphocytes # (Auto) 1.3, Monocytes # (Auto) 0.4, Eosinophils # (Auto) 0.0, Basophils # (Auto) 0.0, Immature Granulocyte # (Auto) 0.1, D-Dimer > 20.00H, Sodium Level 139, Potassium Level 3.3L, Chloride Level 104, Carbon Dioxide Level 22, Anion Gap 13, Blood Urea Nitrogen 13, Creatinine 0.82, Estimat Glomerular Filtration Rate 94, BUN/Creatinine Ratio 16, Glucose Level 110H, Calcium Level 9.4, Corrected Calcium 9.6, Total Bilirubin 0.8, Aspartate Amino Transf (AST/SGOT) 11, Alanine Aminotransferase (ALT/SGPT) 31, Alkaline Phosphatase 208H, Total Protein 8.1, Albumin 3.8, Serum Test, Qualitative NEGATIVE 03/18/22 13:29: Lactic Acid Level 0.86 Assessment/Plan Assessment/Plan Assessment/Plan Right Deloit-pneumothorax secondary to Pneumonia Bronchitis Recurrent pneumonia Immunosuppressed on Hydroxyurea treatment Chronic Diarrhea Plan to continue IV Vanc, Cefapime and Meropenam. Replace fluids with IVF and diet as tolerated. Pain control. Lovenox for DVT prophylaxis. Continue respiratory isolation. Since labs were unable to be drawn this morning, will try to get midline catheter placed at some point today. Will still plan for urgent VATS of right sided empyema on Monday in order to debride loculations of right lung. KAPIL MORALES DO 03/19/22 1834: Subjective Time Seen by a Provider: 12:32 Subjective/Events-last exam Pt seen and examined, still complains of SOB and right sided chest pain. She is on room air and does not appear to be in respiratory distress. Review of Systems Pulmonary: Dyspnea, Cough, Pleuritic Chest Pain Cardiovascular: No: Chest Pain, Palpitations Gastrointestinal: No: Nausea, Vomiting, Abdominal Pain Musculoskeletal: neck pain (right), back pain (right ) Objective Exam General Appearance: Anxious, Chronically ill, Mild Distress, Obese HEENT: PERRL/EOMI, Moist Mucous Membranes Respiratory: No Accessory Muscle Use, No Respiratory Distress, Decreased Breath Sounds (right lung ), Other (dullness to percussion in right lung lobes and tenderness to palpation of the right anterior chest wall) Cardiovascular: Regular Rate, Rhythm, No Murmur Gastrointestinal: non tender, soft Extremity: No Calf Tenderness, No Pedal Edema Neurologic/Psychiatric: Alert, Oriented x3, Depressed Affect Skin: Normal Color, Warm/Dry Assessment/Plan Assessment/Plan Assessment/Plan Right Deloit-pneumothorax secondary to Pneumonia - Empyema Venous insufficiency Bronchitis Recurrent pneumonia Immunosuppressed on Hydroxyurea treatment Chronic Diarrhea Nursing was unable to draw blood and need to give pt medications, will place a central line. Plan to continue IV Vanc, Cefapime and Meropenam. Replace fluids with IVF and diet as tolerated. Pain control. Lovenox for DVT prophylaxis. Continue respiratory isolation. Since labs were unable to be drawn this morning, will try to get midline catheter placed at some point today. Will still plan for urgent VATS of right sided empyema on Monday in order to perform decortication of right lung. Supervisory-Addendum Brief Verification & Attestation Participated in pt care: history, MDM, physical Personally performed: exam, history, MDM, supervision of care Care discussed with: Medical Student Procedures: n/a Verification and Attestation of Medical Student E/M Service A medical student performed and documented this service. I then reviewed and verified all information documented by the medical student and made modifications to such information, when appropriate. I personally performed a physical exam, medical decision making and then discussed any differences between the notes and made revisions as necessary to create one note. Kapil Morales , 03/19/22 , 18:45 BAKARI GREEN Mar 19, 2022 09:49 KAPIL MORALES DO Mar 19, 2022 18:34
[2022-03-19 10:07] LABS: BASOPHILS % (AUTO) 0 % (0-10); EOSINOPHILS % (AUTO) 1 % (0-10); HEMATOCRIT 30 % (35-52); HEMOGLOBIN 10.3 g/dL (11.5-16.0); LYMPHOCYTES # (AUTO) 1.4 10^3/uL (1.0-4.0); LYMPHOCYTES % (AUTO) 27 % (12-44); MEAN CORPUSCULAR HEMOGLOBIN 36 pg (25-34); MEAN CORPUSCULAR HGB CONC 34 g/dL (32-36); MEAN CORPUSCULAR VOLUME 107 fL (80-99); MONOCYTES # (AUTO) 0.5 10^3/uL (0.0-1.0); MONOCYTES % (AUTO) 10 % (0-12); NEUTROPHILS # (AUTO) 3.2 10^3/uL (1.8-7.8); NEUTROPHILS % (AUTO) 61 % (42-75); PLATELET COUNT 222 10^3/uL (130-400); WHITE BLOOD COUNT 5.2 10^3/uL (4.3-11.0)
[2022-03-19] MEDS: RT-ALBUTEROL HFA 8.5 GM INHALER IH SCH ×3 (10:31→21:57)
[2022-03-19] MEDS ORDERED: MIDAZOLAM 2 MG/2 ML (VERSED) VIAL ONE (13:50)
[2022-03-19] MEDS ORDERED: MIDAZOLAM 2 MG/2 ML (VERSED) VIAL IVP ONE (14:00)
[2022-03-19 14:37] LABS: ALBUMIN 3.1 GM/DL (3.2-4.5); POTASSIUM 3.2 MMOL/L (3.6-5.0)
[2022-03-19 14:39] LABS: CALCIUM 8.3 MG/DL (8.5-10.1)
[2022-03-19 14:40] LABS: TOTAL PROTEIN 6.6 GM/DL (6.4-8.2)
[2022-03-19 14:42] LABS: BILIRUBIN,TOTAL 0.5 MG/DL (0.1-1.0)
[2022-03-19 14:43] LABS: PHOSPHORUS 3.3 MG/DL (2.3-4.7)
[2022-03-19 14:44] LABS: CREATININE SERUM 0.79 MG/DL (0.60-1.30)
[2022-03-19 14:46] LABS: MAGNESIUM 1.9 MG/DL (1.6-2.4)
[2022-03-19] MEDS: MAGNESIUM 1 GM/100 ML IVPB 100 ML IV SCH (15:10)
[2022-03-19] MEDS: POTASSIUM CL 10MEQ/50ML IVPB 50 ML IV SCH (15:14)
[2022-03-19] MEDS: KCL 20 MEQ TAB (K-DUR) PO SCH (15:15)
--- NOTE | 2022-03-19 18:48 | Progress Note-Post Operative ---
Post-Operative Progess Note Surgeon (s)/Gun Synchronizer (s) Surgeon SAAD BROOKS DO Gun Synchronizer: none Pre-Operative Diagnosis Venous Insufficiency Post-Operative Diagnosis same Procedure & Operative Findings Date of Procedure 03/19/22 Procedure Performed/Findings Central line Insertion The patient was in their bed in the ICU, was prepped and draped in the sterile fashion. A surgical pause was performed. Ultrasound was used to locate the internal jugular vein. Once located anesthetic was infiltrated above it. Using an 18 gauge finder needle and watching with the US; the left internal jugular vein was accessed on the second attempt. Dark non- pulsatile blood was withdrawn. The wire was inserted. Ultrasound assured proper placement. The needle was removed. A [#11] blade scalpel was used to make a stab incision along the guidewire. Dilator sheath was then advanced over the wire using Seldinger technique and the dilator was removed. The Groshong catheter was inserted over the guide wire using the Seldinger technique. The Groshong wire was removed. The catheter was then accessed in all three ports without difficulty. Good flash of blood was seen and it was then flushed in all three ports with saline. The catheter was sutured in place with 3-0 silk on a needle. The areas were then washed and dried. Sterile dressing was placed over incision. The patient tolerated the procedure well without complication. Anesthesia Type local lidocaine Estimated Blood Loss Estimated blood loss (mL): scant Specimens/Packing Specimens Removed none SAAD BROOKS DO Mar 19, 2022 18:48
[2022-03-19] MEDS: doxAzosin 2 MG (CARDURA) TAB PO SCH (20:33)
[2022-03-20] MEDS: NS IV 1000 ML 1,000 ML IV SCH ×2 (00:02→19:26)
[2022-03-20] MEDS: KETOROLAC 15 MG/ML VIAL IV PRN ×3 (02:43→19:25)
[2022-03-20] MEDS: CEFEPIME INJECTION 1,000 MG in NS (IVPB) 50 ML IV SCH ×4 (02:44→21:04)
[2022-03-20] MEDS: MEROPENEM 1,000 MG in NS (IVPB) 100 ML IV SCH ×3 (02:44→17:08)
[2022-03-20] MEDS: RT-ALBUTEROL HFA 8.5 GM INHALER IH SCH ×6 (02:55→22:12)
[2022-03-20 04:37] LABS: BASOPHILS % (AUTO) 0 % (0-10); EOSINOPHILS # (AUTO) 0.1 10^3/uL (0.0-0.3); EOSINOPHILS % (AUTO) 1 % (0-10); HEMATOCRIT 27 % (35-52); HEMOGLOBIN 9.2 g/dL (11.5-16.0); LYMPHOCYTES # (AUTO) 1.2 10^3/uL (1.0-4.0); LYMPHOCYTES % (AUTO) 25 % (12-44); MEAN CORPUSCULAR HEMOGLOBIN 36 pg (25-34); MEAN CORPUSCULAR HGB CONC 34 g/dL (32-36); MEAN CORPUSCULAR VOLUME 108 fL (80-99); MEAN PLATELET VOLUME 9.3 fL (9.0-12.2); MONOCYTES # (AUTO) 0.5 10^3/uL (0.0-1.0); MONOCYTES % (AUTO) 10 % (0-12); NEUTROPHILS # (AUTO) 3.1 10^3/uL (1.8-7.8); NEUTROPHILS % (AUTO) 63 % (42-75); PLATELET COUNT 212 10^3/uL (130-400); WHITE BLOOD COUNT 4.8 10^3/uL (4.3-11.0)
[2022-03-20 04:48] LABS: POTASSIUM 3.7 MMOL/L (3.6-5.0)
[2022-03-20 04:49] LABS: CALCIUM 8.1 MG/DL (8.5-10.1)
[2022-03-20 04:51] LABS: TOTAL PROTEIN 6.3 GM/DL (6.4-8.2)
[2022-03-20 04:52] LABS: BILIRUBIN,TOTAL 0.4 MG/DL (0.1-1.0)
[2022-03-20 04:54] LABS: CREATININE SERUM 0.78 MG/DL (0.60-1.30)
[2022-03-20 04:57] LABS: MAGNESIUM 1.7 MG/DL (1.6-2.4)
[2022-03-20] MEDS ORDERED: TROUGH ORDER-PHARMACY XX NR (05:00)
[2022-03-20 05:09] LABS: VANCOMYCIN,TROUGH 12.6 UG/ML (10.0-20.0)
[2022-03-20] MEDS: POTASSIUM CL 10MEQ/50ML IVPB 50 ML IV SCH (05:26)
[2022-03-20] MEDS: MAGNESIUM 1 GM/100 ML IVPB 100 ML IV SCH ×3 (05:26→06:01)
[2022-03-20] MEDS: KCL 20 MEQ TAB (K-DUR) PO SCH (05:26)
[2022-03-20] MEDS ORDERED: MAGNESIUM 1 GM/100 ML IVPB 200 ML IV ONE (05:50)
[2022-03-20] MEDS: ENOXAPARIN 40 MG/0.4 ML (LOVENOX) SYR SC SCH (05:57)
[2022-03-20] MEDS: VANCOMYCIN 1250 MG/NS 250 ML IVPB IV SCH ×4 (05:57→17:08)
[2022-03-20] MEDS: PANTOPRAZOLE 40 MG (PROTONIX) TAB PO SCH (06:01)
--- NOTE | 2022-03-20 06:28 | Progress Note - Hospitalist ---
Subjective HPI/CC On Admission Date Seen by Provider: Mar 20, 2022 Time Seen by Provider: 11:30 CC: Right sided empyema HPI: This is a 36yoWF clinic patient of [facility] who presented to the Er with worsened right sided chest pain and was found to have right sided empyema with cavitary lesion. Dr Morales evaluated her CT scan and is planning on chest tube/VATS procedure. IV antibiotics were broadened out by EICU after I discussed the case with Dr Brandt. TB r/o so she was placed in isolation. I also spoke to Dr Morales in-depth along with Gregory Durbin in ER. Currently patient is still having pleurisy and I ordered Toradol. I have reviewed [facility] last visit. Patient was placed on Bactrim for Strep A pharyngitis on 03/07/22. PMH: ADHD Anxiety HTN Bipolar 2 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 HLP GERD Subjective/Events-last exam Patient doing well Having VATS procedure tomorrow Antibiotics tolerated Pain controlled Suspect sleep apnea required oxygen last night Review of Systems General: Fatigue, Malaise Pulmonary: Dyspnea, Cough Cardiovascular: Chest Pain Focused Exam Lactate Level 03/18/22 13:29: Lactic Acid Level 0.86 Objective Exam Vital Signs Vital Signs Date Time Temp Pulse Resp B/P (MAP) Pulse Ox O2 Delivery O2 Flow Rate FiO2 03/20/22 14:00 90 18 120/84 (96) 99 Nasal Cannula 2.00 03/20/22 12:51 35.9 03/18/22 18:07 21 Capillary Refill : General Appearance: No Apparent Distress, WD/WN, Chronically ill, Obese Respiratory: Decreased Breath Sounds Cardiovascular: Regular Rate, Rhythm Results/Procedures Lab Laboratory Tests 03/20/22 04:30 Patient resulted labs reviewed. Assessment/Plan Assessment and Plan Assess & Plan/Chief Complaint Assessment: Acute respiratory failure Right sided empyema with cavitary lesion in need of VATS Right sided pleurisy Immunosuppressed on Hydroxyurea ADHD Anxiety HTN Bipolar 2 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 HLP GERD Plan: IV abx VATS O2 Pain control Lovenox Home meds MARGOTH ZHAO DO Mar 20, 2022 06:28
--- NOTE | 2022-03-20 08:51 | Diagnostic Imaging Report ---
INDICATION: Pneumothorax. TECHNIQUE: Single view chest 4:45 AM. CORRELATION STUDY: 03/19/2022, 03/18/2022 FINDINGS: Small to moderate right-sided pneumothorax is slightly larger from prior. Progressive atelectasis is suggested at the right lung base along with right pleural effusion. Cavitary or cystic change about the central inferior right lung. Left lung well-inflated and clear. Heart size and mediastinum are stable. A left-sided central line tip not well-visualized. IMPRESSION: 1. Slight interval enlargement of a small to moderate right-sided pneumothorax. Increasing atelectasis as well as effusion at the right lower lung field. Cavitary appearance again demonstrated at the central inferior aspect. Report given to nurse at 8:50 AM 03/20/2022/soumya Dictated by: Dictated on workstation # [id number]
[2022-03-20] MEDS: LORATADINE (CLARITIN) 10 MG TAB PO SCH (08:52)
[2022-03-20] MEDS: lisINopril 40 MG (PRINIVIL) TABLET PO SCH (08:52)
[2022-03-20] MEDS: SENNOSIDES 8.6 MG (SENOKOT) TAB PO SCH ×2 (08:52→21:04)
[2022-03-20] MEDS: DOCUSATE SODIUM 100 MG (COLACE) CAP PO SCH ×2 (08:52→21:04)
[2022-03-20] MEDS: ZIPRASIDONE 20 MG (GEODON) CAP PO SCH ×2 (08:52→17:08)
[2022-03-20] MEDS: buPROPion SR 150 MG (WELLBUTRIN SR) TAB PO SCH ×2 (08:52→21:05)
--- NOTE | 2022-03-20 10:17 | Tele-ICU Progress Note ---
Subjective Date Seen by a Provider: Mar 20, 2022 Subjective/Events-last exam This virtual visit was conducted using real time audio/video. Thank you for asking us to see this patient for respiratory insufficiency due to loculated hydropneumothox, cavitary pna, probable empyema. On isolation for TB precautions. Immunosuppressed. PE: Appears comfortable, morbidly obese.VSS. O2 sat 97% on RA. HEENT: No obvious masses, adenopathy or JVD. Chest: coarse, diminished breath sounds on auscultation. CV: RRR S1 S2 No murmur or added sounds. Abd: Non-tender. Bowel sounds Y. : Unremarkable. Vasquez N. [employer]PERVIS[employer]/psychiatric: Grossly intact. No obvious focal findings. Extremities: trace edema. Capillary refill < 3 seconds. Skin: unremarkable. Results: Elevated BG119. Decreased HB 9.2, alb 3.0.. CTC: Loculated hydroptx, cavitary pna, probable empyema. Available chart/ vitals / labs / images reviewed. Video assessment done using teleICU camera, rest of exam as per RN. A/P: Respiratory insufficiency: Continue present management with albuterol. P ossible VATS in AM. Monitor for increasing oxygenation needs and/or need for intubation. Critical Care: critically ill patient. Cont. abx, deborah., PPI, Lisin., Cardura, PRN analgesia. Discussed with BHARGAV Brunner. Asked RN to reach out to eICU if any questions or concerns later. Time spent with patient/coordination of care with other health professionals (mins): 30 Sepsis Event Evaluation Height, Weight, BMI Height: '" Weight: lbs. oz. kg; 44.96 BMI Method: Focused Exam Lactate Level 03/18/22 13:29: Lactic Acid Level 0.86 Exam Exam Patient acknowledged, consented, and participated in this virtual visit which was conducted using real time audio/video Vital Signs Date Time Temp Pulse Resp B/P (MAP) Pulse Ox O2 Delivery O2 Flow Rate FiO2 03/20/22 10:00 78 21 119/77 (91) 100 Nasal Cannula 2.00 03/20/22 09:57 100 Room Air 03/20/22 09:00 102 13 130/87 (101) 97 Nasal Cannula 2.00 03/20/22 08:00 72 19 114/70 (85) 100 Nasal Cannula 2.00 03/20/22 07:55 97 Room Air 03/20/22 07:20 97 Nasal Cannula 2.00 03/20/22 07:00 79 03/20/22 07:00 71 25 109/75 (86) 98 Nasal Cannula 2.00 03/20/22 06:00 96 21 115/65 (82) 98 Nasal Cannula 2.00 03/20/22 05:00 80 21 112/63 (79) 98 Nasal Cannula 2.00 03/20/22 04:11 96 Nasal Cannula 2.00 03/20/22 04:00 36.4 03/20/22 04:00 89 20 125/60 (81) 97 Nasal Cannula 2.00 03/20/22 03:33 92 Nasal Cannula 2.00 03/20/22 03:00 89 20 118/72 (87) 96 Nasal Cannula 2.00 03/20/22 02:00 93 25 141/62 (88) 97 Nasal Cannula 2.00 03/20/22 01:47 Nasal Cannula 2.00 03/20/22 01:00 108 03/20/22 01:00 107 29 133/80 (97) 94 Room Air 03/20/22 00:00 97 Room Air 03/20/22 00:00 37.3 03/20/22 00:00 96 28 96 Room Air 03/19/22 23:00 97 27 130/84 (99) 97 Room Air 03/19/22 22:00 94 27 148/95 (112) 97 Room Air 03/19/22 21:57 94 Room Air 03/19/22 21:00 89 26 137/100 (112) 98 Room Air 03/19/22 20:00 91 25 130/90 (103) 97 Room Air 03/19/22 20:00 96 Room Air 03/19/22 19:51 36.4 03/19/22 19:00 91 03/19/22 19:00 90 24 114/79 (91) 96 Room Air 03/19/22 18:41 98 Room Air 03/19/22 18:00 92 23 110/68 (82) 96 Room Air 03/19/22 17:00 101 24 110/65 (80) 96 Room Air 03/19/22 16:00 95 Room Air 03/19/22 16:00 115 22 103/69 (80) 97 Room Air 03/19/22 15:27 99 Room Air 03/19/22 15:00 93 25 115/65 (82) 96 Room Air 03/19/22 14:00 98 26 102/66 (78) 95 Room Air 03/19/22 13:00 89 26 108/70 (83) 94 Room Air 03/19/22 12:54 88 03/19/22 12:00 95 Room Air 03/19/22 12:00 35.7 03/19/22 12:00 95 23 124/61 (82) 96 Room Air 03/19/22 11:00 93 23 118/60 (79) 96 Room Air 03/19/22 10:31 97 Room Air I & O 03/20/22 07:00 Intake Total 4422.5 ml Output Total 1450 ml Balance 2972.5 ml Height & Weight Height: '" Weight: lbs. oz. kg; 44.96 BMI Method: General Appearance: Anxious, Chronically ill, Mild Distress, Obese HEENT: PERRL/EOMI, Moist Mucous Membranes Neck: Full Range of Motion, Normal Inspection, Non Tender Respiratory: No Accessory Muscle Use, No Respiratory Distress, Decreased Breath Sounds (right lung ), Other (dullness to percussion in right lung lobes and tenderness to palpation of the right anterior chest wall) Cardiovascular: Regular Rate, Rhythm, No Murmur Gastrointestinal: non tender, soft Extremity: No Calf Tenderness, No Pedal Edema Neurologic/Psychiatric: Alert, Oriented x3, Depressed Affect Skin: Normal Color, Warm/Dry Lymphatic: No Adenopathy Results Lab Laboratory Tests 03/18/22 13:02 03/19/22 10:00 03/19/22 14:15 03/20/22 04:30 Assessment/Plan Assessment/Plan See free text. Critical Care: Critically Ill Patient YUKI LEDEZMA MD Mar 20, 2022 10:17
--- NOTE | 2022-03-20 10:51 | Progress Note - Surgery ---
BAKARI GREEN 03/20/22 1051: Subjective Date Seen by a Provider: Mar 20, 2022 Time Seen by a Provider: 10:47 Subjective/Events-last exam Patient is sitting upright in her bed this morning. States her breathing feels like it has improved with the breathing treatments she has been getting. How ever, patient is still short of breath with any exertion. She also still complains of mild pleuritic chest pain when taking deep breaths. Patient states she has been able to eat and use the bathroom. CXR from today shows slight enlargement of small to moderate right sided pneumothorax with increased atelectasis and effusion. Her O2 sats on room air continue to be above 90s. Review of Systems General: No Chills, No Night Sweats Pulmonary: Dyspnea, Pleuritic Chest Pain Cardiovascular: No: Chest Pain, Palpitations Gastrointestinal: No: Nausea, Vomiting Focused Exam Lactate Level 03/18/22 13:29: Lactic Acid Level 0.86 Objective Exam Vital Signs Date Time Temp Pulse Resp B/P (MAP) Pulse Ox O2 Delivery O2 Flow Rate FiO2 03/20/22 10:00 78 21 119/77 (91) 100 Nasal Cannula 2.00 03/20/22 09:57 100 Room Air 03/20/22 09:00 102 13 130/87 (101) 97 Nasal Cannula 2.00 03/20/22 08:00 72 19 114/70 (85) 100 Nasal Cannula 2.00 03/20/22 07:55 97 Room Air 03/20/22 07:20 97 Nasal Cannula 2.00 03/20/22 07:00 79 03/20/22 07:00 71 25 109/75 (86) 98 Nasal Cannula 2.00 03/20/22 06:00 96 21 115/65 (82) 98 Nasal Cannula 2.00 03/20/22 05:00 80 21 112/63 (79) 98 Nasal Cannula 2.00 03/20/22 04:11 96 Nasal Cannula 2.00 03/20/22 04:00 36.4 03/20/22 04:00 89 20 125/60 (81) 97 Nasal Cannula 2.00 03/20/22 03:33 92 Nasal Cannula 2.00 03/20/22 03:00 89 20 118/72 (87) 96 Nasal Cannula 2.00 03/20/22 02:00 93 25 141/62 (88) 97 Nasal Cannula 2.00 03/20/22 01:47 Nasal Cannula 2.00 03/20/22 01:00 108 03/20/22 01:00 107 29 133/80 (97) 94 Room Air 03/20/22 00:00 97 Room Air 03/20/22 00:00 37.3 03/20/22 00:00 96 28 96 Room Air 03/19/22 23:00 97 27 130/84 (99) 97 Room Air 03/19/22 22:00 94 27 148/95 (112) 97 Room Air 03/19/22 21:57 94 Room Air 03/19/22 21:00 89 26 137/100 (112) 98 Room Air 03/19/22 20:00 91 25 130/90 (103) 97 Room Air 03/19/22 20:00 96 Room Air 03/19/22 19:51 36.4 03/19/22 19:00 91 03/19/22 19:00 90 24 114/79 (91) 96 Room Air 03/19/22 18:41 98 Room Air 03/19/22 18:00 92 23 110/68 (82) 96 Room Air 03/19/22 17:00 101 24 110/65 (80) 96 Room Air 03/19/22 16:00 95 Room Air 03/19/22 16:00 115 22 103/69 (80) 97 Room Air 03/19/22 15:27 99 Room Air 03/19/22 15:00 93 25 115/65 (82) 96 Room Air 03/19/22 14:00 98 26 102/66 (78) 95 Room Air 03/19/22 13:00 89 26 108/70 (83) 94 Room Air 03/19/22 12:54 88 03/19/22 12:00 95 Room Air 03/19/22 12:00 35.7 03/19/22 12:00 95 23 124/61 (82) 96 Room Air 03/19/22 11:00 93 23 118/60 (79) 96 Room Air I & O 03/20/22 07:00 Intake Total 4422.5 ml Output Total 1450 ml Balance 2972.5 ml Capillary Refill : General Appearance: Anxious, Chronically ill, Mild Distress, Obese HEENT: PERRL/EOMI, Moist Mucous Membranes Neck: Full Range of Motion, Normal Inspection, Non Tender Respiratory: No Accessory Muscle Use, No Respiratory Distress, Decreased Breath Sounds (right lung ), Other (dullness to percussion in right lung lobes and tenderness to palpation of the right anterior chest wall) Cardiovascular: Regular Rate, Rhythm, No Murmur Gastrointestinal: non tender, soft Extremity: No Calf Tenderness, No Pedal Edema Neurologic/Psychiatric: Alert, Oriented x3, Depressed Affect Skin: Normal Color, Warm/Dry Lymphatic: No Adenopathy Results Lab Laboratory Tests 03/19/22 14:15: Sodium Level 134L, Potassium Level 3.2L, Chloride Level 105, Carbon Dioxide Level 20L, Anion Gap 9, Blood Urea Nitrogen 11, Creatinine 0.79, Estimat Glomerular Filtration Rate 99, BUN/Creatinine Ratio 14, Glucose Level 117H, Calcium Level 8.3L, Corrected Calcium 9.0, Phosphorus Level 3.3, Magnesium Level 1.9, Total Bilirubin 0.5, Aspartate Amino Transf (AST/SGOT) 18, Alanine Aminotransferase (ALT/SGPT) 26, Alkaline Phosphatase 171H, Total Protein 6.6, Albumin 3.1L 03/20/22 04:30: Sodium Level 135, Potassium Level 3.7, Chloride Level 109H, Carbon Dioxide Level 20L, Anion Gap 6, Blood Urea Nitrogen 9, Creatinine 0.78, Estimat Glomerular Filtration Rate 100, BUN/Creatinine Ratio 12, Glucose Level 119H, Calcium Level 8.1L, Corrected Calcium 8.9, Phosphorus Level 3.0, Magnesium Level 1.7, Total Bilirubin 0.4, Aspartate Amino Transf (AST/SGOT) 15, Alanine Aminotransferase (ALT/SGPT) 25, Alkaline Phosphatase 174H, Total Protein 6.3L, Albumin 3.0L, White Blood Count 4.8, Red Blood Count 2.55L, Hemoglobin 9.2L, Hematocrit 27L, Mean Corpuscular Volume 108H, Mean Corpuscular Hemoglobin 36H, Mean Corpuscular Hemoglobin Concent 34, Red Cell Distribution Width 13.3, Platelet Count 212, Mean Platelet Volume 9.3, Immature Granulocyte % (Auto) 1, Neutrophils (%) (Auto) 63, Lymphocytes (%) (Auto) 25, Monocytes (%) (Auto) 10, Eosinophils (%) (Auto) 1, Basophils (%) (Auto) 0, Neutrophils # (Auto) 3.1, Lymphocytes # (Auto) 1.2, Monocytes # (Auto) 0.5, Eosinophils # (Auto) 0.1, Basophils # (Auto) 0.0, Immature Granulocyte # (Auto) 0.0, Vancomycin Level Trough 12.6 Microbiology 03/18/22 Blood Culture - Preliminary, Resulted No growth Assessment/Plan Assessment/Plan Assessment/Plan Right [place]-pneumothorax secondary to Pneumonia - Empyema Venous insufficiency Bronchitis Recurrent pneumonia Immunosuppressed on Hydroxyurea treatment Chronic Diarrhea Plan to continue IV Vanc, Cefapime and Meropenam. Replace fluids with IVF and diet as tolerated. Pain control. Lovenox for DVT prophylaxis. Continue respiratory isolation. Will still plan for urgent VATS of right sided empyema on Monday in order to perform decortication of right lung. KAPIL MORALES DO 03/20/22 1449: Subjective Time Seen by a Provider: 12:42 Subjective/Events-last exam Pt seen and examined, thinks her breathing is a little better. She does get short of breath with any exertion and has chest pain with deep breaths. Nurse stated she had decreased O2 last night and may have some Sleep apnea. Review of Systems General: No Chills, No Night Sweats Pulmonary: Dyspnea, Pleuritic Chest Pain Cardiovascular: No: Chest Pain, Palpitations Gastrointestinal: No: Nausea, Vomiting Objective Exam General Appearance: Anxious, Chronically ill, Mild Distress, Obese HEENT: PERRL/EOMI, Moist Mucous Membranes Respiratory: No Accessory Muscle Use, No Respiratory Distress, Decreased Breath Sounds (right lung ), Other (dullness to percussion in right lung lobes and tenderness to palpation of the right anterior chest wall) Cardiovascular: Regular Rate, Rhythm, No Murmur Gastrointestinal: non tender, soft, no organomegaly Extremity: No Calf Tenderness Neurologic/Psychiatric: Alert, Oriented x3 Assessment/Plan Assessment/Plan Assessment/Plan Right [place]-pneumothorax secondary to Pneumonia - Empyema Venous insufficiency Bronchitis Recurrent pneumonia Immunosuppressed on Hydroxyurea treatment Chronic Diarrhea Plan to continue IV Vanc, Cefapime and Meropenam. Replace fluids with IVF and di et as tolerated. Pain control. Lovenox for DVT prophylaxis. Continue respiratory isolation. Will still plan for urgent VATS of right sided empyema on Monday in order to perform decortication of right lung. I went over risks and complications of VATS (video assisted thoracoscopic surgery); pain, bleeding, infection, scar, damage to lung, pneumothorax and need for further procedure. All questions answered to her satisfaction. Supervisory-Addendum Brief Verification & Attestation Participated in pt care: history, MDM, physical Personally performed: exam, history, MDM, supervision of care Care discussed with: Medical Student Procedures: n/a Verification and Attestation of Medical Student E/M Service A medical student performed and documented this service. I then reviewed and verified all information documented by the medical student and made modifications to such information, when appropriate. I personally performed a physical exam, medical decision making and then discussed any differences between the notes and made revisions as necessary to create one note. Kapil Morales , 03/20/22 , 14:47 BAKARI GREEN Mar 20, 2022 10:51 KAPIL MORALES DO Mar 20, 2022 14:49
[2022-03-20] MEDS: ACETAMINOPHEN 325 MG TABLET PO PRN (19:26)
[2022-03-20] MEDS: doxAzosin 2 MG (CARDURA) TAB PO SCH (21:04)
[2022-03-21] VITALS (7 sets, daily range): BP systolic 107–134; BP diastolic 55–75
[2022-03-21] MEDS: MEROPENEM 1,000 MG in NS (IVPB) 100 ML IV SCH ×3 (02:20→17:10)
[2022-03-21] MEDS: CEFEPIME INJECTION 1,000 MG in NS (IVPB) 50 ML IV SCH ×2 (02:20→09:21)
[2022-03-21] MEDS: KETOROLAC 15 MG/ML VIAL IV PRN ×4 (02:40→23:56)
[2022-03-21] MEDS: RT-ALBUTEROL HFA 8.5 GM INHALER IH SCH ×6 (02:47→23:01)
[2022-03-21 03:30] LABS: BASOPHILS % (AUTO) 1 % (0-10); EOSINOPHILS # (AUTO) 0.1 10^3/uL (0.0-0.3); EOSINOPHILS % (AUTO) 2 % (0-10); HEMATOCRIT 26 % (35-52); HEMOGLOBIN 8.7 g/dL (11.5-16.0); LYMPHOCYTES # (AUTO) 1.1 10^3/uL (1.0-4.0); LYMPHOCYTES % (AUTO) 28 % (12-44); MEAN CORPUSCULAR HEMOGLOBIN 36 pg (25-34); MEAN CORPUSCULAR HGB CONC 33 g/dL (32-36); MEAN CORPUSCULAR VOLUME 110 fL (80-99); MEAN PLATELET VOLUME 9.2 fL (9.0-12.2); MONOCYTES # (AUTO) 0.3 10^3/uL (0.0-1.0); MONOCYTES % (AUTO) 8 % (0-12); NEUTROPHILS # (AUTO) 2.4 10^3/uL (1.8-7.8); NEUTROPHILS % (AUTO) 61 % (42-75); PLATELET COUNT 206 10^3/uL (130-400)
[2022-03-21 03:47] LABS: ALBUMIN 2.9 GM/DL (3.2-4.5); BILIRUBIN,TOTAL 0.3 MG/DL (0.1-1.0); CALCIUM 8.4 MG/DL (8.5-10.1); CREATININE SERUM 0.82 MG/DL (0.60-1.30); MAGNESIUM 1.7 MG/DL (1.6-2.4); PHOSPHORUS 3.5 MG/DL (2.3-4.7); POTASSIUM 4.3 MMOL/L (3.6-5.0); TOTAL PROTEIN 6.1 GM/DL (6.4-8.2)
[2022-03-21] MEDS: MAGNESIUM 1 GM/100 ML IVPB 100 ML IV SCH ×3 (04:47→04:50)
[2022-03-21] MEDS: POTASSIUM CL 10MEQ/50ML IVPB 50 ML IV SCH (04:50)
[2022-03-21] MEDS: KCL 20 MEQ TAB (K-DUR) PO SCH (04:51)
[2022-03-21] MEDS: PANTOPRAZOLE 40 MG (PROTONIX) TAB PO SCH (04:51)
--- NOTE | 2022-03-21 05:49 | Progress Note - Hospitalist ---
Subjective HPI/CC On Admission Date Seen by Provider: Mar 21, 2022 Time Seen by Provider: 09:00 CC: Right sided empyema HPI: This is a 36yoWF clinic patient of [facility] who presented to the Er with worsened right sided chest pain and was found to have right sided empyema with cavitary lesion. Dr Morales evaluated her CT scan and is planning on chest tube/VATS procedure. IV antibiotics were broadened out by EICU after I discussed the case with Dr Brandt. TB r/o so she was placed in isolation. I also spoke to Dr Morales in-depth along with Gregory Durbin in ER. Currently patient is still having pleurisy and I ordered Toradol. I have reviewed [facility] last visit. Patient was placed on Bactrim for Strep A pharyngitis on 03/07/22. PMH: ADHD Anxiety HTN Bipolar 2 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 HLP GERD Subjective/Events-last exam Pt is having more complications VATS procedure will be done by Dr. Morales Oxygen maintained because of her hypoxia Diagnosed with right leg DVT She had been on Lovenox for the entire hospital course, so she is definitely hypercoagulable Pt overall appears to be very chronically ill Review of Systems General: Fatigue, Malaise Pulmonary: Dyspnea Focused Exam Lactate Level Objective Exam Vital Signs Vital Signs Date Time Temp Pulse Resp B/P (MAP) Pulse Ox O2 Delivery O2 Flow Rate FiO2 03/22/22 04:00 36.8 86 22 93/50 (64) 96 Nasal Cannula 4.00 03/18/22 18:07 21 Capillary Refill : Less Than 3 Seconds General Appearance: No Apparent Distress, WD/WN, Chronically ill, Other (Severely acutely ill) Respiratory: Decreased Breath Sounds Cardiovascular: Regular Rate, Rhythm Neurologic/Psychiatric: Alert, Oriented x3, Depressed Affect Results/Procedures Lab Laboratory Tests 03/22/22 04:19 Patient resulted labs reviewed. Assessment/Plan Assessment and Plan Assess & Plan/Chief Complaint Assessment: Acute respiratory failure Right sided empyema with cavitary lesion in need of VATS Right sided pleurisy Immunosuppressed on Hydroxyurea ADHD Anxiety HTN Bipolar 2 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 HLP GERD Acute left leg DVT although maintained on Lovenox for DVT prophylaxis the entire hospital course Plan: IV abx VATS today O2 Pain control Lovenox will need therapeutic dose for acute DVT after surgery Home meds Guarded prognosis patient extremely ill on chronic illness Critical Care Critically Ill Patient MARGOTH ZHAO DO Mar 21, 2022 05:49
[2022-03-21] MEDS: VANCOMYCIN 1250 MG/NS 250 ML IVPB IV SCH ×4 (05:55→17:10)
--- NOTE | 2022-03-21 08:45 | Diagnostic Imaging Report ---
Indication: Pneumothorax. Compared with radiograph one day prior. Findings: Right pneumothorax has about 2.2 cm pleural separation maximal unchanged from prior and results in no tension. Infiltrates in the right mid to lower lung with some linear atelectatic changes at the left base unchanged. Impression: Unchanged right pneumothorax without tension. No substantial change in right mid to lower lung, patchy infiltrates and left basilar atelectasis. Dictated by: Dictated on workstation # [id number]
[2022-03-21] MEDS: LORATADINE (CLARITIN) 10 MG TAB PO SCH (09:41)
[2022-03-21] MEDS: ZIPRASIDONE 20 MG (GEODON) CAP PO SCH ×3 (09:41→18:51)
[2022-03-21] MEDS: lisINopril 40 MG (PRINIVIL) TABLET PO SCH (09:42)
[2022-03-21] MEDS: buPROPion SR 150 MG (WELLBUTRIN SR) TAB PO SCH ×2 (09:42→20:01)
[2022-03-21] MEDS: SENNOSIDES 8.6 MG (SENOKOT) TAB PO SCH ×2 (09:42→20:01)
[2022-03-21] MEDS: DOCUSATE SODIUM 100 MG (COLACE) CAP PO SCH ×2 (09:42→20:01)
[2022-03-21] MEDS ORDERED: MIDAZOLAM 2 MG/2 ML (VERSED) VIAL ONE (10:14)
[2022-03-21] MEDS ORDERED: fentaNYL INJ 100 MCG/2 ML AMP ONE (10:14)
[2022-03-21] MEDS ORDERED: proPOfol 200 MG/20 ML (DIPRIVAN) VIAL IV ONE (10:14)
[2022-03-21] MEDS ORDERED: LIDOCAINE PF 2% 5 ML (XYLOCAINE) VIAL ONE (10:17)
[2022-03-21] MEDS ORDERED: BUP/EPI 0.5% 1:200,000 (MARCAINE) 10ML VIAL IJ ONE ×2 (10:20→12:54)
--- NOTE | 2022-03-21 10:30 | Diagnostic Imaging Report ---
EXAMINATION: US Lower Extremity Venous Duplex Left. TECHNIQUE: Multiple real-time grayscale images were obtained over the left lower extremity in various projections. Additional spectral analysis and color Doppler duplex images were also obtained. HISTORY: Left lower extremity pain and swelling. COMPARISON: None available. FINDINGS: Occlusive deep vein thrombus is seen throughout the left lower extremity venous system involving the left common femoral vein, profunda femoris, superficial femoral, popliteal, and calf vessels. IMPRESSION: 1. Large burden of occlusive deep vein thrombus throughout the left lower extremity venous system. Results were given to the patient's nurse immediately following the exam by the screwdown operator. Dictated by: Dictated on workstation # [id number]
--- NOTE | 2022-03-21 10:42 | Tele-ICU Progress Note ---
Subjective Date Seen by a Provider: Mar 21, 2022 Time Seen by a Provider: 09:30 Subjective/Events-last exam (Tele-ICU Physician , consultation as per request of PCP Service provided via interactive audio and video telecommunications E-CARE system to a patient admitted to ICU bed in [facility]. (Tele-ICU Physician , Progress Note ) Service provided via interactive audio and video telecommunications E-CARE system to a patient admitted to ICU bed in [facility]. Available chart/ vitals / labs / Images reviewed Video assessment done using teleICU camera, rest of exam as per RN Discussed with RN Events overnight : Afebrile hemodynamically stable Respiratory - 3l I/O = Drips: Pressors- no Consultants: Hospital course: -ER - 2 weeks ago (03/03/22) she was brought to [facility] ED for right abdominal pain and diarrhea--> Dx with PNA , started on ABX abd steroids 03/18 - to ER with chest pain --> PNA, hydropneumothorax A/P RIGHT PNA , right hydropneumothorax/ suspected empyema ( most likely ruptures abscess) - abx started- will cont - Sx consulted - VATS 03/21 planned - montor PTX Left LE edema 03/21 - ordering LE US stat - suspected DVT ( was on prophylaxix , but reported fall few days INVESTMENT STRATEGIST - at risk Anemia - delutional ( 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) Immunocompromised status - on hydroxychloroquine - bacterial infection , Nonbacterial pathogens, opportunistic infection- all in differential -> will await cx Bipolar 2, anxiety , ADHD - monitor Lines : L IF 03/20 , (Central Line Necessity Reviewed) Vasquez: void OG: Nutrition: po Analgesia: nsaids/ steroids po Anxiety/ delirium VTE Prophylaxis: lovenox Stress Ulcer Prophylaxis: ppi Plans in collaboration with bedside consultants and IM MDs Discussed with RN to reach out if any questions or concerns A total of 32 minutes of critical care time was devoted to this patient today, required to treat and/or prevent further deterioration of critical care condition ( as above ) . I am remotely monitoring this patient from another state. I am unable to do the bedside exam, and history/physical and pertinent information is taken from other notes in the computer and bedside staff. Sepsis Event Evaluation Height, Weight, BMI Height: '" Weight: lbs. oz. kg; 44.84 BMI Method: Focused Exam Lactate Level 03/18/22 13:29: Lactic Acid Level 0.86 Exam Exam Patient acknowledged, consented, and participated in this virtual visit which was conducted using real time audio/video Vital Signs Date Time Temp Pulse Resp B/P (MAP) Pulse Ox O2 Delivery O2 Flow Rate FiO2 03/21/22 10:28 96 Room Air 2.00 03/21/22 08:48 96 Nasal Cannula 3.00 03/21/22 07:50 36.2 03/21/22 07:05 94 03/21/22 07:03 96 Nasal Cannula 2.00 03/21/22 07:00 82 17 134/88 (103) 97 Nasal Cannula 2.00 03/21/22 06:00 81 17 132/83 (99) 98 Nasal Cannula 2.00 03/21/22 05:00 78 23 126/77 (93) 98 Nasal Cannula 2.00 03/21/22 04:25 36.4 Nasal Cannula 2.00 03/21/22 04:00 97 Nasal Cannula 2.00 03/21/22 04:00 82 22 115/64 (81) 96 Nasal Cannula 2.00 03/21/22 03:00 87 20 134/70 (91) 95 Nasal Cannula 2.00 03/21/22 02:47 96 Nasal Cannula 2.00 03/21/22 02:00 78 24 135/74 (94) 96 Nasal Cannula 2.00 03/21/22 01:00 80 22 126/71 (89) 95 Nasal Cannula 2.00 03/21/22 01:00 80 03/21/22 00:00 36.7 03/21/22 00:00 84 23 129/69 (89) 96 Nasal Cannula 2.00 03/20/22 23:25 94 Nasal Cannula 2.00 03/20/22 23:00 85 25 117/70 (86) 96 Nasal Cannula 2.00 03/20/22 22:16 95 Nasal Cannula 2.00 03/20/22 22:11 81 19 95 Nasal Cannula 2.00 03/20/22 22:00 23 125/65 (85) 89 Room Air 03/20/22 21:00 24 123/66 (85) 91 Room Air 03/20/22 20:00 28 125/72 (89) 93 Room Air 10/30/22 19:30 99 Room Air 03/20/22 19:00 36.8 92 24 136/86 (103) 99 Room Air Manual Cuff/Auscultation Automatic Cuff 03/20/22 19:00 92 03/20/22 18:00 92 23 98 Nasal Cannula 2.00 03/20/22 17:00 115 26 109/96 (100) 98 Nasal Cannula 2.00 03/20/22 16:47 97 Room Air 03/20/22 16:00 86 26 132/76 (94) 97 Nasal Cannula 2.00 03/20/22 16:00 36.4 03/20/22 16:00 97 Room Air 03/20/22 15:50 100 Room Air 03/20/22 15:00 87 22 132/82 (99) 99 Nasal Cannula 2.00 03/20/22 14:00 90 18 120/84 (96) 99 Nasal Cannula 2.00 03/20/22 13:00 84 20 92/65 (74) 98 Nasal Cannula 2.00 03/20/22 12:51 35.9 03/20/22 12:38 79 03/20/22 12:16 98 Room Air 03/20/22 12:00 81 21 125/67 (86) 100 Nasal Cannula 2.00 03/20/22 11:00 76 20 114/71 (85) 100 Nasal Cannula 2.00 I & O 03/21/22 07:00 Intake Total 3790 ml Output Total 3300 ml Balance 490 ml Height & Weight Height: '" Weight: lbs. oz. kg; 44.84 BMI Method: General Appearance: No Apparent Distress, WD/WN, Chronically ill, Obese HEENT: PERRL/EOMI, Moist Mucous Membranes Neck: Full Range of Motion, Normal Inspection, Non Tender Respiratory: Decreased Breath Sounds Cardiovascular: Regular Rate, Rhythm Capillary Refill: Less Than 3 Seconds Gastrointestinal: non tender, soft, no organomegaly Extremity: No Calf Tenderness Neurologic/Psychiatric: Alert, Oriented x3 Skin: Normal Color, Warm/Dry Lymphatic: No Adenopathy Results Lab Laboratory Tests 03/19/22 14:15 03/20/22 04:30 03/21/22 03:00 Assessment/Plan Assessment/Plan 1 MORALES HERNÁNDEZ MD Mar 21, 2022 10:42
--- NOTE | 2022-03-21 11:08 | Progress Note - Surgery ---
Subjective Time Seen by a Provider: 10:59 Subjective/Events-last exam Pt seen and examined, complains of some left leg pain. She denies SOB when sitting still and does not appear to be in any respiratory distress. Review of Systems General: No Chills, No Night Sweats Pulmonary: Dyspnea, Cough Cardiovascular: No: Chest Pain, Palpitations Gastrointestinal: No: Nausea, Vomiting, Abdominal Pain Musculoskeletal: leg pain Focused Exam Lactate Level 03/18/22 13:29: Lactic Acid Level 0.86 Objective Exam Vital Signs Date Time Temp Pulse Resp B/P (MAP) Pulse Ox O2 Delivery O2 Flow Rate FiO2 03/21/22 10:28 96 Room Air 2.00 03/21/22 08:48 96 Nasal Cannula 3.00 03/21/22 07:50 36.2 03/21/22 07:05 94 03/21/22 07:03 96 Nasal Cannula 2.00 03/21/22 07:00 82 17 134/88 (103) 97 Nasal Cannula 2.00 03/21/22 06:00 81 17 132/83 (99) 98 Nasal Cannula 2.00 03/21/22 05:00 78 23 126/77 (93) 98 Nasal Cannula 2.00 03/21/22 04:25 36.4 Nasal Cannula 2.00 03/21/22 04:00 97 Nasal Cannula 2.00 03/21/22 04:00 82 22 115/64 (81) 96 Nasal Cannula 2.00 03/21/22 03:00 87 20 134/70 (91) 95 Nasal Cannula 2.00 03/21/22 02:47 96 Nasal Cannula 2.00 03/21/22 02:00 78 24 135/74 (94) 96 Nasal Cannula 2.00 03/21/22 01:00 80 22 126/71 (89) 95 Nasal Cannula 2.00 03/21/22 01:00 80 03/21/22 00:00 36.7 03/21/22 00:00 84 23 129/69 (89) 96 Nasal Cannula 2.00 03/20/22 23:25 94 Nasal Cannula 2.00 03/20/22 23:00 85 25 117/70 (86) 96 Nasal Cannula 2.00 03/20/22 22:16 95 Nasal Cannula 2.00 03/20/22 22:11 81 19 95 Nasal Cannula 2.00 03/20/22 22:00 23 125/65 (85) 89 Room Air 03/20/22 21:00 24 123/66 (85) 91 Room Air 03/20/22 20:00 28 125/72 (89) 93 Room Air 03/20/22 19:30 99 Room Air 03/20/22 19:00 36.8 92 24 136/86 (103) 99 Room Air Manual Cuff/Auscultation Automatic Cuff 03/20/22 19:00 92 03/20/22 18:00 92 23 98 Nasal Cannula 2.00 03/20/22 17:00 115 26 109/96 (100) 98 Nasal Cannula 2.00 03/20/22 16:47 97 Room Air 03/20/22 16:00 86 26 132/76 (94) 97 Nasal Cannula 2.00 03/20/22 16:00 36.4 03/20/22 16:00 97 Room Air 03/20/22 15:50 100 Room Air 03/20/22 15:00 87 22 132/82 (99) 99 Nasal Cannula 2.00 03/20/22 14:00 90 18 120/84 (96) 99 Nasal Cannula 2.00 03/20/22 13:00 84 20 92/65 (74) 98 Nasal Cannula 2.00 03/20/22 12:51 35.9 03/20/22 12:38 79 03/20/22 12:16 98 Room Air 03/20/22 12:00 81 21 125/67 (86) 100 Nasal Cannula 2.00 I & O 03/21/22 07:00 Intake Total 3790 ml Output Total 3300 ml Balance 490 ml Capillary Refill : Less Than 3 Seconds General Appearance: No Apparent Distress, Obese HEENT: PERRL/EOMI, Moist Mucous Membranes Respiratory: Normal Breath Sounds (left lung), No Accessory Muscle Use, No Respiratory Distress, Decreased Breath Sounds (right and dullness to percussion) Cardiovascular: Regular Rate, Rhythm, No Murmur Gastrointestinal: non tender, soft, no organomegaly Extremity: Calf Tenderness (left) Neurologic/Psychiatric: Alert, Oriented x3 Results Lab Laboratory Tests 03/21/22 03:00: White Blood Count 4.0L, Red Blood Count 2.41L, Hemoglobin 8.7L, Hematocrit 26L, Mean Corpuscular Volume 110H, Mean Corpuscular Hemoglobin 36H, Mean Corpuscular Hemoglobin Concent 33, Red Cell Distribution Width 13.4, Platelet Count 206, Mean Platelet Volume 9.2, Immature Granulocyte % (Auto) 1, Neutrophils (%) (Auto) 61, Lymphocytes (%) (Auto) 28, Monocytes (%) (Auto) 8, Eosinophils (%) (Auto) 2, Basophils (%) (Auto) 1, Neutrophils # (Auto) 2.4, Lymphocytes # (Auto) 1.1, Monocytes # (Auto) 0.3, Eosinophils # (Auto) 0.1, Basophils # (Auto) 0.0, Immature Granulocyte # (Auto) 0.0, Sodium Level 140, Potassium Level 4.3, Chloride Level 112H, Carbon Dioxide Level 17L, Anion Gap 11, Blood Urea Nitrogen 9, Creatinine 0.82, Estimat Glomerular Filtration Rate 94, BUN/Creatinine Ratio 11, Glucose Level 100, Calcium Level 8.4L, Corrected Calcium 9.3, Phosphorus Level 3.5, Magnesium Level 1.7, Total Bilirubin 0.3, Aspartate Amino Transf (AST/SGOT) 10, Alanine Aminotransferase (ALT/SGPT) 20, Alkaline Phosphatase 143H , Total Protein 6.1L, Albumin 2.9L Microbiology 03/18/22 Blood Culture - Preliminary, Resulted No growth Assessment/Plan Assessment/Plan Assessment/Plan Right [place]-pneumothorax secondary to Pneumonia - Empyema Left leg DVT Venous insufficiency Bronchitis Recurrent pneumonia Immunosuppressed on Hydroxyurea treatment Chronic Diarrhea When I spoke to pt regarding the US findings, she said she had 2 DVT's on her right leg and this didn't feel the same. Plan to continue IV ABX, IVF and to OR for urgent VATS of right sided empyema. Possible decortication of right lung, will leave chest tubes in place. Will need to start anticoagulation after surgery; which may increase bleeding and will probably have to be on blood thinner for 6 months. I went over risks and complications of VATS (video assisted thoracoscopic surgery); pain, bleeding, infection, scar, damage to lung, pneumothorax and need for further procedure. All questions answered to her satisfaction. SAAD BROOKS DO Mar 21, 2022 11:08
[2022-03-21] MEDS: LACTATED RINGERS 1,000 ML IV PRN ×2 (11:30→12:58)
[2022-03-21] MEDS ORDERED: SEVOFLURANE (ULTANE) 15 ML INHAL SOLN ONE ×2 (12:26→13:47)
[2022-03-21] MEDS ORDERED: ROCURONIUM 10 MG/ML 5 ML SYRINGE IV ONE (12:26)
[2022-03-21] MEDS ORDERED: ONDANSETRON 4 MG/2 ML (SDV) Z0FRAN ONE (12:26)
[2022-03-21] MEDS ORDERED: NEOSTIGMINE 3 MG/3 ML VIAL ONE (13:49)
[2022-03-21] MEDS ORDERED: GLYCOPYRROLATE 0.2 MG/ML (ROBINUL) 2 ML VIAL ONE (13:49)
--- NOTE | 2022-03-21 14:05 | Progress Note-Post Operative ---
Post-Operative Progess Note Surgeon (s)/Storage Solutions Architect (s) Surgeon SAAD BROOKS DO Storage Solutions Architect: Sammy Pre-Operative Diagnosis Right lung HyrdoPneumothorax Post-Operative Diagnosis Right lung Empyema with entrapped upper lobe Procedure & Operative Findings Date of Procedure 03/21/22 Procedure Performed/Findings VATS - Right lung middle and lower lobe decortication with release of trapped upper lobe Anesthesia Type GET Estimated Blood Loss Estimated blood loss (mL): scant Specimens/Packing Specimens Removed purulent peel pleural fluid culture SAAD BROOKS DO Mar 21, 2022 14:05
[2022-03-21] MEDS ORDERED: morphine INJ 10 MG/ML 1ML (SYR OR VIAL) ONE (14:12)
[2022-03-21] MEDS ORDERED: HYDROmorphone 2 MG/ML VIAL (DILAUDID) ONE (14:22)
[2022-03-21] MEDS ORDERED: PROMETHAZINE INJ 25 MG/ML (PHENERGAN) AMP IVP ONE (14:30)
[2022-03-21] MEDS ORDERED: ONDANSETRON 4 MG/2 ML (SDV) Z0FRAN IVP PRN (14:30)
[2022-03-21] MEDS ORDERED: HYDROmorphone 2 MG/ML VIAL (DILAUDID) IV ONE (14:30)
[2022-03-21] MEDS ORDERED: MEPERIDINE (DEMEROL) INJ 50 MG/ML IVP ONE (14:30)
[2022-03-21] MEDS ORDERED: morphine INJ 10 MG/ML 1ML (SYR OR VIAL) IVP ONE (14:30)
[2022-03-21] MEDS ORDERED: fentaNYL INJ 100 MCG/2 ML AMP IVP NR (14:30)
[2022-03-21] MEDS: NS IV 1000 ML 1,000 ML IV SCH (17:13)
[2022-03-21] MEDS: doxAzosin 2 MG (CARDURA) TAB PO SCH (20:01)
[2022-03-21] MEDS: ALPRAZolam 0.5 MG (XANAX) TAB PO PRN (20:01)
[2022-03-21] MEDS: HYDROmorphone 2 MG/ML VIAL (DILAUDID) IV PRN ×2 (20:02→22:15)
[2022-03-21] MEDS: ACETAMINOPHEN 325 MG TABLET PO PRN (22:15)
[2022-03-22] MEDS: HYDROmorphone 2 MG/ML VIAL (DILAUDID) IV PRN ×4 (01:52→15:21)
[2022-03-22] MEDS: MEROPENEM 1,000 MG in NS (IVPB) 100 ML IV SCH ×3 (01:52→18:21)
[2022-03-22] MEDS: RT-ALBUTEROL HFA 8.5 GM INHALER IH SCH ×6 (03:09→21:44)
[2022-03-22 04:32] LABS: BASOPHILS % (AUTO) 0 % (0-10); EOSINOPHILS % (AUTO) 0 % (0-10); HEMATOCRIT 25 % (35-52); HEMOGLOBIN 8.1 g/dL (11.5-16.0); LYMPHOCYTES # (AUTO) 0.6 10^3/uL (1.0-4.0); LYMPHOCYTES % (AUTO) 10 % (12-44); MEAN CORPUSCULAR HEMOGLOBIN 35 pg (25-34); MEAN CORPUSCULAR HGB CONC 32 g/dL (32-36); MEAN CORPUSCULAR VOLUME 110 fL (80-99); MONOCYTES # (AUTO) 0.5 10^3/uL (0.0-1.0); MONOCYTES % (AUTO) 8 % (0-12); NEUTROPHILS # (AUTO) 4.5 10^3/uL (1.8-7.8); NEUTROPHILS % (AUTO) 81 % (42-75); PLATELET COUNT 209 10^3/uL (130-400); WHITE BLOOD COUNT 5.6 10^3/uL (4.3-11.0)
[2022-03-22 04:58] LABS: ALBUMIN 2.9 GM/DL (3.2-4.5); BILIRUBIN,TOTAL 0.3 MG/DL (0.1-1.0); CALCIUM 8.2 MG/DL (8.5-10.1); CREATININE SERUM 0.71 MG/DL (0.60-1.30); MAGNESIUM 1.7 MG/DL (1.6-2.4); PHOSPHORUS 2.8 MG/DL (2.3-4.7); POTASSIUM 4.7 MMOL/L (3.6-5.0); TOTAL PROTEIN 6.1 GM/DL (6.4-8.2)
[2022-03-22] MEDS: MAGNESIUM 1 GM/100 ML IVPB 100 ML IV SCH ×2 (05:16→05:31)
[2022-03-22] MEDS: POTASSIUM CL 10MEQ/50ML IVPB 50 ML IV SCH (05:16)
[2022-03-22] MEDS: KCL 20 MEQ TAB (K-DUR) PO SCH (05:17)
[2022-03-22] MEDS: PANTOPRAZOLE 40 MG (PROTONIX) TAB PO SCH (05:31)
[2022-03-22] MEDS: VANCOMYCIN 1250 MG/NS 250 ML IVPB IV SCH ×4 (05:31→18:21)
--- NOTE | 2022-03-22 08:30 | Progress Note - Hospitalist ---
Subjective HPI/CC On Admission Date Seen by Provider: Mar 22, 2022 Time Seen by Provider: 08:30 CC: Right sided empyema HPI: This is a 36yoWF clinic patient of [facility] who presented to the Er with worsened right sided chest pain and was found to have right sided empyema with cavitary lesion. Dr Morales evaluated her CT scan and is planning on chest tube/VATS procedure. IV antibiotics were broadened out by EICU after I discussed the case with Dr Brandt. TB r/o so she was placed in isolation. I also spoke to Dr Morales in-depth along with Gregory Durbin in ER. Currently patient is still having pleurisy and I ordered Toradol. I have reviewed [facility] last visit. Patient was placed on Bactrim for Strep A pharyngitis on 03/07/22. PMH: ADHD Anxiety HTN Bipolar 2 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 HLP GERD Subjective/Events-last exam Pt is about the same Anticoagulation will start for the left lower extremity DVT She has had a DVT in the right leg when she had her Remains on 4L Extremely ill, remains in ICU Review of Systems General: Fatigue, Malaise Musculoskeletal: leg pain Objective Exam Vital Signs Vital Signs Date Time Temp Pulse Resp B/P (MAP) Pulse Ox O2 Delivery O2 Flow Rate FiO2 03/23/22 05:00 89 21 126/73 (93) 98 Nasal Cannula 3.00 03/23/22 04:31 37.0 03/18/22 18:07 21 Capillary Refill : Less Than 3 Seconds General Appearance: No Apparent Distress, WD/WN, Chronically ill Respiratory: Lungs Clear, Normal Breath Sounds, Decreased Breath Sounds Cardiovascular: Regular Rate, Rhythm Neurologic/Psychiatric: Alert, Oriented x3, No Motor/Sensory Deficits, Normal Mood/Affect Results/Procedures Lab Laboratory Tests 03/23/22 03:45 Patient resulted labs reviewed. Assessment/Plan Assessment and Plan Assess & Plan/Chief Complaint Assessment: Acute respiratory failure Right sided empyema with cavitary lesion s/p VATS POD # 1 Right sided pleurisy Immunosuppressed on Hydroxyurea ADHD Anxiety HTN Bipolar 2 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 HLP GERD Acute left leg DVT although maintained on Lovenox for DVT prophylaxis the entire hospital course Hypoxia Plan: IV abx VATS O2 Pain control Lovenox will need therapeutic dose for acute DVT after surgery Home meds Guarded prognosis patient extremely ill on chronic illness Critical Care Critically Ill Patient MARGOTH ZHAO DO Mar 22, 2022 08:30
[2022-03-22] MEDS: LORATADINE (CLARITIN) 10 MG TAB PO SCH (08:36)
[2022-03-22] MEDS: SENNOSIDES 8.6 MG (SENOKOT) TAB PO SCH ×2 (08:36→20:55)
[2022-03-22] MEDS: ZIPRASIDONE 20 MG (GEODON) CAP PO SCH ×2 (08:36→18:26)
[2022-03-22] MEDS: lisINopril 40 MG (PRINIVIL) TABLET PO SCH (08:36)
[2022-03-22] MEDS: buPROPion SR 150 MG (WELLBUTRIN SR) TAB PO SCH ×2 (08:37→20:55)
[2022-03-22] MEDS ORDERED: OMEP40CA6 PO (08:51)
[2022-03-22] MEDS ORDERED: BUPR-42 PO (08:51)
[2022-03-22] MEDS ORDERED: HYDR500C2 PO (08:51)
[2022-03-22] MEDS ORDERED: BUPR300T43 PO (08:51)
[2022-03-22] MEDS ORDERED: DOXA2TAB2 PO (08:51)
[2022-03-22] MEDS ORDERED: ZIPR60CA18 PO (08:51)
--- NOTE | 2022-03-22 09:03 | Tele-ICU Progress Note ---
Subjective Date Seen by a Provider: Mar 22, 2022 Subjective/Events-last exam This virtual visit was conducted using real time audio/video. Thank you for asking us to see this patient for respiratory insufficiency due to loculated hydropneumothox, cavitary pna, probable empyema. On isolation for TB precautions. Immunosuppressed. S/P VATS with decortication, empyema drainage and RUL release. Developed extensive occlusive LLE DVT. PE: Appears comfortable, pale, morbidly obese.VSS. O2 sat 97% on 4 LPM. HEENT: No obvious masses, adenopathy or JVD. Chest: coarse, diminished breath sounds on auscultation. CV: RRR S1 S2 No murmur or added sounds. Abd: Non-tender. Bowel sounds Y. : Unremarkable. Vasquez N. [employer]ER/psychiatric: Grossly intact. No obvious focal findings. Extremities: trace edemaR 1+ L Capillary refill < 3 seconds. Skin: unremarkable. Results: Elevated BG 141. Decreased HB 8.1, WCC 2.3, alb 2.9. CXR improved, RML, RLL infilts., chest tube present. Duplex: LLE DVT. Available chart/ vitals / labs / images reviewed. Video assessment done using teleICU camera, rest of exam as per RN. A/P: Respiratory insufficiency: Continue present management with albuterol. S/P VATS 03/21/2022. Monitor for increasing oxygenation needs and/or need for intubation. Critical Care: critically ill patient. Cont. abx, PPI, Lisin., Cardura, PRN analgesia.Resuming Lovenox per RN. Discussed with BHARGAV Hernandez. Asked RN to reach out to eICU if any questions or concerns later. Time spent with patient/coordination of care with other health professionals (mins): 31 Sepsis Event Evaluation Height, Weight, BMI Height: '" Weight: lbs. oz. kg; 51.89 BMI Method: Exam Exam Patient acknowledged, consented, and participated in this virtual visit which was conducted using real time audio/video Vital Signs Date Time Temp Pulse Resp B/P (MAP) Pulse Ox O2 Delivery O2 Flow Rate FiO2 03/22/22 08:00 113 26 107/67 (80) 95 Nasal Cannula 4.00 03/22/22 07:31 95 Nasal Cannula 2.00 03/22/22 07:22 103 03/22/22 07:00 86 19 107/65 (79) 94 Nasal Cannula 4.00 03/22/22 06:00 84 17 108/68 (81) 95 Nasal Cannula 4.00 03/22/22 05:00 105 26 113/82 (92) 94 Nasal Cannula 4.00 03/22/22 04:00 36.8 86 22 93/50 (64) 96 Nasal Cannula 4.00 03/22/22 04:00 96 Nasal Cannula 4.00 03/22/22 03:09 97 Nasal Cannula 2.00 03/22/22 03:00 82 20 102/56 (71) 95 Nasal Cannula 4.00 03/22/22 02:00 80 20 116/74 (88) 95 Nasal Cannula 4.00 03/22/22 01:00 82 16 118/60 (78) 96 Nasal Cannula 4.00 03/22/22 01:00 82 03/22/22 00:00 96 20 137/74 (106) 96 Nasal Cannula 4.00 03/21/22 23:55 96 Nasal Cannula 4.00 03/21/22 23:55 36.9 Nasal Cannula 4.00 03/21/22 23:01 95 Nasal Cannula 2.00 03/21/22 23:00 92 22 128/81 (93) 94 Nasal Cannula 4.00 03/21/22 22:00 91 24 140/86 (104) 95 Nasal Cannula 4.00 03/21/22 22:00 95 27 140/86 (107) 94 Nasal Cannula 4.00 03/21/22 21:00 87 21 118/76 (90) 96 Nasal Cannula 4.00 03/21/22 20:00 96 21 135/86 (102) 93 Nasal Cannula 4.00 03/21/22 19:45 112 39 139/89 (102) 90 Nasal Cannula 4.00 03/21/22 19:35 92 Nasal Cannula 4.00 03/21/22 19:30 36.8 94 20 142/87 (105) 92 Nasal Cannula 4.00 Manual Cuff/Auscultation 03/21/22 19:15 115 36 125/89 (93) 92 Nasal Cannula 4.00 03/21/22 19:07 93 Room Air 2.00 03/21/22 19:01 114 03/21/22 19:00 120 38 114/88 (97) 92 Nasal Cannula 4.00 03/21/22 18:00 75 18 135/86 (102) 98 Simple Mask 4.00 03/21/22 17:00 96 25 132/95 (107) 90 Simple Mask 4.00 03/21/22 16:00 111 24 123/77 (92) 93 Simple Mask 4.00 03/21/22 15:40 94 Simple Mask 4.00 03/21/22 15:39 36.7 12 94 Simple Mask 4.00 03/21/22 15:16 106 03/21/22 15:15 116 18 135/83 (100) 92 Nasal Cannula 2.00 03/21/22 15:05 Simple Mask 4.00 03/21/22 15:00 96 18 117/75 (89) 92 Nasal Cannula 2.00 03/21/22 15:00 36.2 20 134/75 (94) 95 Simple Mask 4.00 03/21/22 15:00 Simple Mask 4.00 03/21/22 14:50 20 118/70 (86) 94 Simple Mask 4.00 03/21/22 14:45 Simple Mask 4.00 03/21/22 14:40 20 112/74 (87) 97 Simple Mask 6.00 03/21/22 14:30 20 119/70 (86) 96 Simple Mask 6.00 03/21/22 14:30 Simple Mask 6.00 03/21/22 14:20 24 109/75 (86) 96 Simple Mask 10.00 03/21/22 14:15 Simple Mask 10.00 03/21/22 14:10 24 115/67 (83) 96 Simple Mask 10.00 03/21/22 14:05 36.2 24 107/55 (72) 94 Simple Mask 10.00 03/21/22 14:05 Simple Mask 10.00 03/21/22 10:28 96 Room Air 2.00 03/21/22 09:00 79 23 133/88 (103) 98 Nasal Cannula 2.00 I & O 03/22/22 07:00 Intake Total 2600 ml Output Total 3725 ml Balance -1125 ml Height & Weight Height: '" Weight: lbs. oz. kg; 51.89 BMI Method: General Appearance: No Apparent Distress, WD/WN, Chronically ill, Other (Severely acutely ill) HEENT: PERRL/EOMI, Moist Mucous Membranes Respiratory: Decreased Breath Sounds Cardiovascular: Regular Rate, Rhythm Capillary Refill: Less Than 3 Seconds Gastrointestinal: non tender, soft, no organomegaly Extremity: Calf Tenderness (left) Neurologic/Psychiatric: Alert, Oriented x3, Depressed Affect Results Lab Laboratory Tests 03/21/22 03:00 03/22/22 04:19 Assessment/Plan Assessment/Plan See free text. Critical Care: Critically Ill Patient YUKI LEDEZMA MD Mar 22, 2022 09:03
--- NOTE | 2022-03-22 09:12 | Diagnostic Imaging Report ---
INDICATION: Chest tube COMPARISON: 03/21/2022. TECHNIQUE: Single radiograph of the chest dated 03/22/2022. FINDINGS: Interval placement of a large caliber right-sided chest tube projecting overlying the right midlung. This is associated with soft tissue gas within the right neck and chest. Significant improvement with minute right apical pneumothorax remaining. Left IJ central venous catheter appears stable. The cardiac silhouette is within normal limits in size. Significantly low lung volumes, decreased since the prior examination with developing small right basilar pleural-parenchymal opacity and increasing interstitial opacities in the left lung base. No significant left-sided pleural effusion. No left-sided pneumothorax. Osseous structures appear stable. IMPRESSION: Interval placement of right-sided chest tube with significantly improved though persisting minute right apical pneumothorax. Decreased lung volumes with increasing right greater than left opacities, this is felt to relate to increasing atelectasis and/or infiltrate with associated tiny right pleural effusion. Dictated by: Dictated on workstation # [id number]
--- NOTE | 2022-03-22 09:40 | Progress Note - Surgery ---
Subjective Time Seen by a Provider: 09:21 Subjective/Events-last exam Pt seen and examined, states she is having shoulder pain and pain with deep breaths. Minimal SOB, is on 4L of NC O2. Review of Systems General: No Chills, No Night Sweats Pulmonary: Cough, Pleuritic Chest Pain Cardiovascular: Edema; No: Palpitations Gastrointestinal: No: Nausea, Vomiting, Abdominal Pain Genitourinary: No Dysuria, No Frequency; Other (Rodrigues in place) Musculoskeletal: shoulder pain Objective Exam Vital Signs Date Time Temp Pulse Resp B/P (MAP) Pulse Ox O2 Delivery O2 Flow Rate FiO2 03/22/22 08:00 113 26 107/67 (80) 95 Nasal Cannula 4.00 03/22/22 07:31 95 Nasal Cannula 2.00 03/22/22 07:22 103 03/22/22 07:00 86 19 107/65 (79) 94 Nasal Cannula 4.00 03/22/22 06:00 84 17 108/68 (81) 95 Nasal Cannula 4.00 03/22/22 05:00 105 26 113/82 (92) 94 Nasal Cannula 4.00 03/22/22 04:00 36.8 86 22 93/50 (64) 96 Nasal Cannula 4.00 03/22/22 04:00 96 Nasal Cannula 4.00 03/22/22 03:09 97 Nasal Cannula 2.00 03/22/22 03:00 82 20 102/56 (71) 95 Nasal Cannula 4.00 03/22/22 02:00 80 20 116/74 (88) 95 Nasal Cannula 4.00 03/22/22 01:00 82 16 118/60 (78) 96 Nasal Cannula 4.00 03/22/22 01:00 82 03/22/22 00:00 96 20 137/74 (106) 96 Nasal Cannula 4.00 03/21/22 23:55 96 Nasal Cannula 4.00 03/21/22 23:55 36.9 Nasal Cannula 4.00 03/21/22 23:01 95 Nasal Cannula 2.00 03/21/22 23:00 92 22 128/81 (93) 94 Nasal Cannula 4.00 03/21/22 22:00 91 24 140/86 (104) 95 Nasal Cannula 4.00 03/21/22 22:00 95 27 140/86 (107) 94 Nasal Cannula 4.00 03/21/22 21:00 87 21 118/76 (90) 96 Nasal Cannula 4.00 03/21/22 20:00 96 21 135/86 (102) 93 Nasal Cannula 4.00 03/21/22 19:45 112 39 139/89 (102) 90 Nasal Cannula 4.00 03/21/22 19:35 92 Nasal Cannula 4.00 03/21/22 19:30 36.8 94 20 142/87 (105) 92 Nasal Cannula 4.00 Manual Cuff/Auscultation 03/21/22 19:15 115 36 125/89 (93) 92 Nasal Cannula 4.00 03/21/22 19:07 93 Room Air 2.00 03/21/22 19:01 114 03/21/22 19:00 120 38 114/88 (97) 92 Nasal Cannula 4.00 03/21/22 18:00 75 18 135/86 (102) 98 Simple Mask 4.00 03/21/22 17:00 96 25 132/95 (107) 90 Simple Mask 4.00 03/21/22 16:00 111 24 123/77 (92) 93 Simple Mask 4.00 03/21/22 15:40 94 Simple Mask 4.00 03/21/22 15:39 36.7 12 94 Simple Mask 4.00 03/21/22 15:16 106 03/21/22 15:15 116 18 135/83 (100) 92 Nasal Cannula 2.00 03/21/22 15:05 Simple Mask 4.00 03/21/22 15:00 96 18 117/75 (89) 92 Nasal Cannula 2.00 03/21/22 15:00 36.2 20 134/75 (94) 95 Simple Mask 4.00 03/21/22 15:00 Simple Mask 4.00 03/21/22 14:50 20 118/70 (86) 94 Simple Mask 4.00 03/21/22 14:45 Simple Mask 4.00 03/21/22 14:40 20 112/74 (87) 97 Simple Mask 6.00 03/21/22 14:30 20 119/70 (86) 96 Simple Mask 6.00 03/21/22 14:30 Simple Mask 6.00 03/21/22 14:20 24 109/75 (86) 96 Simple Mask 10.00 03/21/22 14:15 Simple Mask 10.00 03/21/22 14:10 24 115/67 (83) 96 Simple Mask 10.00 03/21/22 14:05 36.2 24 107/55 (72) 94 Simple Mask 10.00 03/21/22 14:05 Simple Mask 10.00 03/21/22 10:28 96 Room Air 2.00 I & O 03/22/22 07:00 Intake Total 2600 ml Output Total 3725 ml Balance -1125 ml Capillary Refill : Less Than 3 Seconds General Appearance: No Apparent Distress, Obese HEENT: PERRL/EOMI, Moist Mucous Membranes Respiratory: No Accessory Muscle Use, No Respiratory Distress, Decreased Breath Sounds (right lung base), Other (Chest tube in place - hooked up to suction, no leak (but pt can't do large cough) ) Cardiovascular: Regular Rate, Rhythm, No Murmur Gastrointestinal: non tender, soft, no organomegaly Extremity: Calf Tenderness (left) Neurologic/Psychiatric: Alert, Oriented x3, Depressed Affect Results Lab Laboratory Tests 03/22/22 04:19: White Blood Count 5.6, Red Blood Count 2.30L, Hemoglobin 8.1L, Hematocrit 25L, Mean Corpuscular Volume 110H, Mean Corpuscular Hemoglobin 35H, Mean Corpuscular Hemoglobin Concent 32, Red Cell Distribution Width 13.4, Platelet Count 209, Mean Platelet Volume 9.0, Immature Granulocyte % (Auto) 1, Neutrophils (%) (Auto) 81H, Lymphocytes (%) (Auto) 10L, Monocytes (%) (Auto) 8, Eosinophils (%) (Auto) 0, Basophils (%) (Auto) 0, Neutrophils # (Auto) 4.5, Lymphocytes # (Auto) 0.6L, Monocytes # (Auto) 0.5, Eosinophils # (Auto) 0.0, Basophils # (Auto) 0.0, Immature Granulocyte # (Auto) 0.0, Sodium Level 136, Potassium Level 4.7, Chloride Level 106, Carbon Dioxide Level 20L, Anion Gap 10, Blood Urea Nitrogen 11, Creatinine 0.71, Estimat Glomerular Filtration Rate 112, BUN/Creatinine Ratio 15, Glucose Level 141H, Calcium Level 8.2L, Corrected Calcium 9.1, Phosphorus Level 2.8, Magnesium Level 1.7, Total Bilirubin 0.3, Aspartate Amino Transf (AST/SGOT) 16, Alanine Aminotransferase (ALT/SGPT) 22, Alkaline Phosphatase 125, Total Protein 6.1L, Albumin 2.9L Microbiology 03/18/22 Blood Culture - Preliminary, Resulted No growth Assessment/Plan Assessment/Plan Assessment/Plan S/P Right VATS with Decortication - POD#1 Left leg DVT -will start Lovenox today if not already started Venous insufficiency Bronchitis Recurrent pneumonia Immunosuppressed on Hydroxyurea treatment Chronic Diarrhea Pt told she has to start moving more, using IS and will d/c rodrigues. Will also have RT see her to maximize treatment. Continue O2 but try to wean down. CXR today does not show PTX, base of lung does have fluid SAAD BROOKS DO Mar 22, 2022 09:40
--- NOTE | 2022-03-22 10:05 | Progress Note-Post Operative ---
Post-Operative Progess Note Surgeon (s)/Automation Driver (s) Surgeon SAAD BROOKS DO Automation Driver: Sammy Pre-Operative Diagnosis Right lung HyrdoPneumothorax Post-Operative Diagnosis Right Lung Empyema Procedure & Operative Findings Date of Procedure 03/21/22 Procedure Performed/Findings Video Assisted Thoracoscopic Surgery - Right Lung decortication of middle and lower lobe with release of entrapped upper lobe After informed consent was obtained, the patient was brought to the operating room. She was intubated with a dual lumen tube and the right lung was then clamped off. She was transferred, rolled over into the left lateral decubitus position and the bed was slightly broken to increase the angulation. The patient was then sterilely prepped and draped in a normal fashion and we had marked the right side and a timeout was performed and everyone agreed on the right side. An incision was made just below the scapula on the right just posterior to the mid axillary line or slightly posterior, infiltrated the skin with local and then right on top of the ribs with local as well. I then made an incision with #11 blade, carried down through the skin into subcutaneous tissue, then deepened down thru subcutaneous tissue with Bovie electrocautery down to the rib. I then went just over the top of the rib, I split the muscle with Bovie electrocautery and blunt diseection gently and then placed a finger, able to get into the chest. A 10 mL Kii trocar port was placed and then 10 mm scope with a 45-degree angle was placed. Upon entry, I noted a thick fibrinous material and an almost greenish fluid; appeared to be covering the entire visceral pleura as well as parietal pleura and entrapping the lung. At this point, I elected to place a 5 mm port going back a little bit further and again just above this rib, it was probably the eighth or ninth rib. I infiltrated the skin with local and then advanced the needle and felt the needle come just over the rib and then watched it come into the pleural cavity. I then made a small stab incision with #11 blade in the longest direction, placed a 5 mm trocar port under direct visualization. At this point, I then started trying to take down this fibrinous material. The material was a thickened, curd and cheese-like; kind of gelatinous and consistent with a chronic empyema covering the entire middle and inferior lobe all the way down to the diaphragm. I had to place 3 more 5mm ports during the procedure to be able to get down to the diaphragm and out medially and laterally. One was directly below the 10mm port, one was more medial and then another lower and medial (almost in the mid-axillary line). I copiously irrigated with normal saline and suctioned this out. I used blunt dissection to take some of this fibrinous material off the parietal and visceral pleura. I also used a grasper to pull it off and was able to get most of it off. I also suctioned out some of this fluid and sent it to pathology for culture. The other 5 mm port were helpful to get visualization to be able to help to get out this peel, carefully taking down this peel, able to visualize some of the lung and take it down to just into the inferior lobe, getting around and right along the diaphragm trying to free all this up, so that the lung would reexpand. I was able to let the upper lobe re-expand by getting all of the peel off, but no pee was seen on the upper lobe. I removed almost all of the peel and then copiously irrigated with normal saline and then used again a little bit of blunt dissection to remove more peel. At the end, we had freed up the superior, middle and inferior lobes. The was very minimal fibrinous peel on the lung; but did not want to remove it and damage the lung. The lung did appear to expand almost completely when we unclamped it. At this point, I elected to place a 20 Latvian chest tube in the lower 5 mm incision to go down along the diaphragm. I then placed another 32-Latvian chest tube in at the larger incision. Used the 5mm camera to make sure it was placed correctly into the upper portion of the pleural space. Both were then sutured in place with 0 silk suture to hold in place, then hooked up the two chest tubes to a Y-connector and then to Pleur-evac. Closed the 5 mm incision with floyd. Area was cleaned,dried and Xeroform gauze was placed around the chest tube with some draing sponges. The patient was then transferred to recovery room in a stable condition. Sponge, instrument and needle count correct at the end of the case. Dr. Christianson assisted in this case helping to make incisions, close incisions, do portions of the deep cortication and helping with placing the chest tubes. Anesthesia Type GET Estimated Blood Loss Estimated blood loss (mL): scant Specimens/Packing Specimens Removed Pleural fluid for culture Empyema SAAD Prater DO Mar 22, 2022 10:05
--- NOTE | 2022-03-22 10:44 | Anesthesia-General Post-Op ---
General Patient Condition Mental Status/LOC: Same as Preop Cardiovascular: Satisfactory Nausea/Vomiting: Absent Respiratory: Satisfactory Pain: Controlled Complications: Absent Post Op Complications Complications None Follow Up Care/Instructions Patient Instructions None needed. Anesthesia/Patient Condition Patient Condition Patient is doing well, no complaints, stable vital signs, no apparent adverse anesthesia problems. No complications reported per nursing. AZIZA GARNER CRNA Mar 22, 2022 10:44
[2022-03-22] MEDS: NS IV 1000 ML 1,000 ML IV SCH (10:50)
[2022-03-22] MEDS: ENOXAPARIN 300 MG/3 ML (LOVENOX) MULTI-DOSE VIAL SQ SCH ×2 (11:52→23:22)
[2022-03-22] MEDS: morphine IMMEDIATE RELEASE 15 MG TABLET PO PRN (13:25)
[2022-03-22 14:23] VITALS: BP 112/73
[2022-03-22] MEDS: KETOROLAC 15 MG/ML VIAL IV PRN ×2 (15:19→23:22)
[2022-03-22] MEDS: ACETAMINOPHEN 325 MG TABLET PO PRN (15:19)
[2022-03-22] MEDS: DOCUSATE SODIUM 100 MG (COLACE) CAP PO SCH ×2 (17:28→20:56)
[2022-03-22] MEDS: doxAzosin 2 MG (CARDURA) TAB PO SCH (20:56)
[2022-03-22] MEDS: ALPRAZolam 0.5 MG (XANAX) TAB PO PRN (20:56)
[2022-03-23] MEDS: MEROPENEM 1,000 MG in NS (IVPB) 100 ML IV SCH ×3 (01:47→17:23)
[2022-03-23] MEDS: morphine IMMEDIATE RELEASE 15 MG TABLET PO PRN ×2 (01:47→23:25)
[2022-03-23] MEDS: RT-ALBUTEROL HFA 8.5 GM INHALER IH SCH ×6 (02:30→21:34)
[2022-03-23] MEDS: HYDROmorphone 2 MG/ML VIAL (DILAUDID) IV PRN (03:30)
[2022-03-23 03:57] LABS: BASOPHILS % (AUTO) 0 % (0-10); EOSINOPHILS # (AUTO) 0.1 10^3/uL (0.0-0.3); EOSINOPHILS % (AUTO) 1 % (0-10); HEMATOCRIT 27 % (35-52); HEMOGLOBIN 8.8 g/dL (11.5-16.0); LYMPHOCYTES # (AUTO) 1.3 10^3/uL (1.0-4.0); LYMPHOCYTES % (AUTO) 24 % (12-44); MEAN CORPUSCULAR HEMOGLOBIN 36 pg (25-34); MEAN CORPUSCULAR HGB CONC 33 g/dL (32-36); MEAN CORPUSCULAR VOLUME 109 fL (80-99); MONOCYTES # (AUTO) 0.5 10^3/uL (0.0-1.0); MONOCYTES % (AUTO) 9 % (0-12); NEUTROPHILS # (AUTO) 3.5 10^3/uL (1.8-7.8); NEUTROPHILS % (AUTO) 65 % (42-75); PLATELET COUNT 201 10^3/uL (130-400); WHITE BLOOD COUNT 5.4 10^3/uL (4.3-11.0)
[2022-03-23 04:16] LABS: BILIRUBIN,TOTAL 0.6 MG/DL (0.1-1.0); CALCIUM 8.7 MG/DL (8.5-10.1); CREATININE SERUM 0.71 MG/DL (0.60-1.30); MAGNESIUM 1.9 MG/DL (1.6-2.4); PHOSPHORUS 3.1 MG/DL (2.3-4.7); POTASSIUM 4.6 MMOL/L (3.6-5.0); TOTAL PROTEIN 6.5 GM/DL (6.4-8.2)
[2022-03-23] MEDS: POTASSIUM CL 10MEQ/50ML IVPB 50 ML IV SCH (05:35)
[2022-03-23] MEDS: MAGNESIUM 1 GM/100 ML IVPB 100 ML IV SCH (05:35)
[2022-03-23] MEDS: KCL 20 MEQ TAB (K-DUR) PO SCH (05:35)
[2022-03-23] MEDS: PANTOPRAZOLE 40 MG (PROTONIX) TAB PO SCH (06:12)
[2022-03-23] MEDS: VANCOMYCIN 1250 MG/NS 250 ML IVPB IV SCH ×4 (06:12→18:56)
--- NOTE | 2022-03-23 07:54 | Progress Note - Surgery ---
LEILANI HIGUERA 03/23/22 0754: Subjective Date Seen by a Provider: Mar 23, 2022 Time Seen by a Provider: 07:38 Subjective/Events-last exam Our pt is 36 yo F, Vita Raphael, who presented to the ED on 03/18 with shortness of breath and was subsequently admitted to the hospital for right hydropn eumothorax. She underwent VATS procedure on 03/21. This morning Ms. Raphael states she is feeling alright. Within the last 24 hours she has been ambulating with assistance about her room to sit in chair and use the bathroom. She states she has been using her spirometer and is not having difficulty breathing. States she is supposed to be on 3L of O2 but is at 4L during time of interview. She is eating three meals per day. Denies concerns today, but notes she has been coughing and producing thick phlegm which is clear to coloration. Pt having some pain at sites of chest tube insert when she leans forward. She notes the dressing was changed last night. Dressing is clean, dry, and intact. Review of Systems General: No Chills, No Other (fever) HEENT: No Head Aches, No Dysphasia Pulmonary: No Dyspnea; Cough Cardiovascular: Edema (pt notes left leg is swollen due to DVT); No: Chest Pain Gastrointestinal: No: Nausea, Vomiting Genitourinary: No Dysuria, No Hematuria Musculoskeletal: other (pain to palpation over chest tube dressing ), leg pain (has had some discomfort in left leg due to swelling and blood clot) Neurological: No: Numbness, Change in speech Objective Exam Vital Signs Date Time Temp Pulse Resp B/P (MAP) Pulse Ox O2 Delivery O2 Flow Rate FiO2 03/23/22 07:23 95 03/23/22 07:00 96 36 116/71 (86) 100 Nasal Cannula 3.00 03/23/22 06:03 154 22 139/73 (94) 96 Nasal Cannula 3.00 03/23/22 05:00 89 21 126/73 (93) 98 Nasal Cannula 3.00 03/23/22 04:31 37.0 Nasal Cannula 3.00 03/23/22 04:00 97 Nasal Cannula 3.00 03/23/22 04:00 97 21 123/75 (91) 97 Nasal Cannula 3.00 03/23/22 03:00 87 23 128/66 (91) 98 Nasal Cannula 3.00 03/23/22 02:30 96 Nasal Cannula 5.00 03/23/22 02:00 89 25 107/68 (79) 97 Nasal Cannula 3.00 03/23/22 01:00 96 20 121/63 (85) 96 Nasal Cannula 3.00 03/23/22 01:00 96 03/23/22 00:10 36.8 Nasal Cannula 3.00 03/23/22 00:08 96 Nasal Cannula 3.00 03/23/22 00:00 117 21 122/60 (82) 98 Nasal Cannula 4.00 03/22/22 23:00 94 123 136/72 (90) 97 Nasal Cannula 4.00 03/22/22 22:15 89 21 98 Nasal Cannula 4.00 03/22/22 22:00 95 23 123/70 (84) 97 Nasal Cannula 5.00 03/22/22 21:44 98 Nasal Cannula 5.00 03/22/22 21:00 99 37 123/71 (84) 95 Nasal Cannula 5.00 03/22/22 20:06 116 26 125/75 (90) 94 Nasal Cannula 5.00 03/22/22 20:00 95 Nasal Cannula 4.00 03/22/22 19:00 37.0 Nasal Cannula 5.00 03/22/22 19:00 96 20 104/66 (76) 90 Nasal Cannula 5.00 03/22/22 19:00 96 03/22/22 18:46 93 Nasal Cannula 5.00 03/22/22 18:00 105 22 99/57 (71) 87 Nasal Cannula 4.00 03/22/22 17:55 37.4 03/22/22 17:18 94 Nasal Cannula 4.00 03/22/22 17:00 140 26 90 Nasal Cannula 4.00 03/22/22 16:00 94 Nasal Cannula 4.00 03/22/22 16:00 114 23 93/50 (64) 91 Nasal Cannula 4.00 03/22/22 15:33 94 Nasal Cannula 5.00 03/22/22 15:00 114 27 109/72 (84) 93 Nasal Cannula 4.00 03/22/22 14:23 37.2 118 96 03/22/22 14:00 122 33 120/76 (91) 93 Nasal Cannula 4.00 03/22/22 13:00 118 31 112/73 (86) 96 Nasal Cannula 4.00 03/22/22 12:41 114 03/22/22 12:00 37.2 03/22/22 12:00 94 Nasal Cannula 4.00 03/22/22 12:00 128 38 110/89 (96) 93 Nasal Cannula 4.00 03/22/22 11:00 114 39 117/71 (86) 93 Nasal Cannula 4.00 03/22/22 10:30 93 Nasal Cannula 5.00 03/22/22 10:00 107 25 109/67 (81) 94 Nasal Cannula 4.00 03/22/22 09:00 110 25 105/67 (80) 93 Nasal Cannula 4.00 03/22/22 08:00 Nasal Cannula 4.00 03/22/22 08:00 113 26 107/67 (80) 95 Nasal Cannula 4.00 I & O 03/23/22 07:00 Intake Total 4490.0 ml Output Total 3330 ml Balance 1160.0 ml Capillary Refill : Less Than 3 Seconds General Appearance: No Apparent Distress, WD/WN, Obese HEENT: PERRL/EOMI, Moist Mucous Membranes; No Photophobia, No Scleral Icterus (L) Neck: Non Tender (IV in place on left side of neck, pt notes it is not causing discomfort), Supple Respiratory: No Respiratory Distress (currently in 4L of O2), Decreased Breath Sounds Cardiovascular: Regular Rate, Rhythm, No Murmur, Normal Peripheral Pulses Peripheral Pulses: 2+ Radial Pulses (R), 2+ Radial Pulses (L) Gastrointestinal: non tender, soft, no organomegaly Extremity: Calf Tenderness (left), Swelling (swelling in left leg) Neurologic/Psychiatric: Alert, Oriented x3, No Motor/Sensory Deficits, Normal Mood/Affect Skin: Warm/Dry Results Lab Laboratory Tests 03/23/22 03:45: White Blood Count 5.4, Red Blood Count 2.48L, Hemoglobin 8.8L, Hematocrit 27L, Mean Corpuscular Volume 109H, Mean Corpuscular Hemoglobin 36H, Mean Corpuscular Hemoglobin Concent 33, Red Cell Distribution Width 13.7, Platelet Count 201, Mean Platelet Volume 9.0, Immature Granulocyte % (Auto) 0, Neutrophils (%) (Auto) 65, Lymphocytes (%) (Auto) 24, Monocytes (%) (Auto) 9, Eosinophils (%) (Auto) 1, Basophils (%) (Auto) 0, Neutrophils # (Auto) 3.5, Lymphocytes # (Auto) 1.3, Monocytes # (Auto) 0.5, Eosinophils # (Auto) 0.1, Basophils # (Auto) 0.0, Immature Granulocyte # (Auto) 0.0, Sodium Level 135, Potassium Level 4.6, Chloride Level 104, Carbon Dioxide Level 20L, Anion Gap 11, Blood Urea Nitrogen 11, Creatinine 0.71, Estimat Glomerular Filtration Rate 112, BUN/Creatinine Ratio 15, Glucose Level 115H, Calcium Level 8.7, Corrected Calcium 9.5, Phosphorus Level 3.1, Magnesium Level 1.9, Total Bilirubin 0.6, Aspartate Amino Transf (AST/SGOT) 35H, Alanine Aminotransferase (ALT/SGPT) 38, Alkaline Phosphatase 178H, Total Protein 6.5, Albumin 3.0L Microbiology 03/21/22 Gram Stain, Resulted Pending 03/21/22 Anaerobic Culture, Resulted Pending 03/21/22 Surgical Culture - Preliminary, Resulted No growth 03/21/22 Fungal Culture 1 - Preliminary, Resulted 03/18/22 Blood Culture - Preliminary, Resulted No growth Radiology CXR on 03/23 seems to have improved from 03/22. No radiology report as of 09:38. Assessment/Plan Assessment/Plan Assessment/Plan S/P Right VATS with Decortication Left leg DVT Venous insufficiency Bronchitis Recurrent pneumonia Immunosuppressed on Hydroxyurea treatment Chronic Diarrhea Pt to continue ambulation, spirometer use, and RT visits. Continue O2 but try to wean down. Continue Lovenox. KAPIL MORALES DO 03/23/22 1143: Subjective Time Seen by a Provider: 09:27 Subjective/Events-last exam Pt seen and examined, sitting up in chair but sleeping. States breathing is better and has been up ambulating. Review of Systems General: No Chills HEENT: No Head Aches Pulmonary: No Dyspnea; Cough Cardiovascular: Edema (pt notes left leg is swollen due to DVT); No: Chest Pain Gastrointestinal: No: Nausea, Vomiting Genitourinary: No Dysuria, No Hematuria Musculoskeletal: other (pain to palpation over chest tube dressing ), leg pain (has had some discomfort in left leg due to swelling and blood clot) Objective Exam General Appearance: No Apparent Distress, Obese HEENT: PERRL/EOMI, Moist Mucous Membranes Respiratory: No Accessory Muscle Use, No Respiratory Distress (currently in 4L of O2), Decreased Breath Sounds (right base) Cardiovascular: Regular Rate, Rhythm, No Murmur Gastrointestinal: non tender, soft, no organomegaly Extremity: Calf Tenderness (left), Swelling (swelling in left leg) Skin: Other (incisions c/d/oi) Assessment/Plan Assessment/Plan Assessment/Plan S/P Right VATS with Decortication - POD#2 Left leg DVT Venous insufficiency Bronchitis Recurrent pneumonia Immunosuppressed on Hydroxyurea treatment Chronic Diarrhea Pt to continue ambulation, spirometer use, and RT visits. Continue O2 but try to wean down. Continue Lovenox. Supervisory-Addendum Brief Verification & Attestation Participated in pt care: history, MDM, physical Personally performed: exam, history, MDM, supervision of care Care discussed with: Medical Student Procedures: n/a Verification and Attestation of Medical Student E/M Service A medical student performed and documented this service. I then reviewed and verified all information documented by the medical student and made modifications to such information, when appropriate. I personally performed a physical exam, medical decision making and then discussed any differences between the notes and made revisions as necessary to create one note. Kapil Morales , 03/23/22 , 11:45 LEILANI HIGUERA Mar 23, 2022 07:54 KAPIL MORALES DO Mar 23, 2022 11:43
[2022-03-23] MEDS: DOCUSATE SODIUM 100 MG (COLACE) CAP PO SCH ×2 (08:24→20:46)
[2022-03-23] MEDS: SENNOSIDES 8.6 MG (SENOKOT) TAB PO SCH ×2 (08:24→20:50)
[2022-03-23] MEDS: ACETAMINOPHEN 325 MG TABLET PO PRN (08:24)
[2022-03-23] MEDS: LORATADINE (CLARITIN) 10 MG TAB PO SCH (08:25)
[2022-03-23] MEDS: buPROPion SR 150 MG (WELLBUTRIN SR) TAB PO SCH ×2 (08:25→20:47)
[2022-03-23] MEDS: ZIPRASIDONE 20 MG (GEODON) CAP PO SCH ×2 (08:25→17:24)
[2022-03-23] MEDS: KETOROLAC 15 MG/ML VIAL IV PRN (08:25)
[2022-03-23] MEDS: lisINopril 40 MG (PRINIVIL) TABLET PO SCH (08:25)
--- NOTE | 2022-03-23 09:38 | Diagnostic Imaging Report ---
INDICATION: Postop follow-up. Comparison with 03/22/2022. FINDINGS: Right chest tube remains present unchanged. Bibasilar atelectasis remains present. Small right pleural effusion. No pneumothorax. Left jugular line unchanged. Heart is mildly enlarged. IMPRESSION: Postoperative residue with bibasilar atelectasis and small right pleural effusion again noted. Dictated by: Dictated on workstation # [id number]
--- NOTE | 2022-03-23 10:05 | Tele-ICU Progress Note ---
Subjective Date Seen by a Provider: Mar 23, 2022 Time Seen by a Provider: 10:06 Subjective/Events-last exam ... (Tele-ICU Physician , Progress Note ) Service provided via interactive audio and video telecommunCasabi E-CARE system to a patient admitted to ICU bed in [facility]. Available chart/ vitals / labs / Images reviewed Video assessment done using teleICU camera, rest of exam as per RN Discussed with RN Events overnight : Afebrile hemodynamically stable Respiratory - 3l I/O = Drips: none Pressors- no Consultants: Hospital course: -ER - 2 weeks ago (03/03/22) she was brought to [facility] ED for right abdominal pain and diarrhea--> Dx with PNA , started on ABX abd steroids 03/18 - to ER with chest pain --> PNA, hydropneumothorax 03/21-S/P Right VATS with Decortication, DVT LLE A/P RIGHT PNA , right hydropneumothorax/ suspected empyema -S/P Right VATS with Decortication 03/21 - abx started- will cont , cx pending - chest tube in place no leak , as per Sx - pain is better controlled Acute resp hypoxemic failure - multifactoria - PNA , effusion , atelectasis - cont IS , wean off 02 3l - IS 500 Acute DVT LLE 03/21 - lovenox full dose started 03/22 Anemia - delutional ( 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) Immunocompromised status - on hydroxychloroquine - bacterial infection , Nonbacterial pathogens, opportunistic infection- all in differential -> will await cx Bipolar 2, anxiety , ADHD - monitor , stable Chronic diarrhea - no BM now - stable d/c isolation 03/22 - neg interferon Lines : L IJ 03/20 , (Central Line Necessity Reviewed) Vasquez: void OG: Nutrition: po Analgesia: nsaids/ steroids po Anxiety/ delirium VTE Prophylaxis: lovenox Stress Ulcer Prophylaxis: ppi Plans in collaboration with bedside consultants and IM MDs Discussed with RN to reach out if any questions or concerns A total of 32 minutes of critical care time was devoted to this patient today, required to treat and/or prevent further deterioration of critical care condition ( as above ) . I am remotely monitoring this patient from another state. I am unable to do the bedside exam, and history/physical and pertinent information is taken from other notes in the computer and bedside staff. Sepsis Event Evaluation Height, Weight, BMI Height: '" Weight: lbs. oz. kg; 46.44 BMI Method: Exam Exam Patient acknowledged, consented, and participated in this virtual visit which was conducted using real time audio/video Vital Signs Date Time Temp Pulse Resp B/P (MAP) Pulse Ox O2 Delivery O2 Flow Rate FiO2 03/23/22 09:00 126 31 127/109 (115) 95 Nasal Cannula 3.00 03/23/22 08:24 37.6 03/23/22 08:00 94 Nasal Cannula 4.00 03/23/22 08:00 129 32 126/81 (96) 93 Nasal Cannula 3.00 03/23/22 07:23 95 03/23/22 07:00 96 36 116/71 (86) 100 Nasal Cannula 3.00 03/23/22 06:03 154 22 139/73 (94) 96 Nasal Cannula 3.00 03/23/22 05:00 89 21 126/73 (93) 98 Nasal Cannula 3.00 03/23/22 04:31 37.0 Nasal Cannula 3.00 03/23/22 04:00 97 Nasal Cannula 3.00 03/23/22 04:00 97 21 123/75 (91) 97 Nasal Cannula 3.00 03/23/22 03:00 87 23 128/66 (91) 98 Nasal Cannula 3.00 03/23/22 02:30 96 Nasal Cannula 5.00 03/23/22 02:00 89 25 107/68 (79) 97 Nasal Cannula 3.00 03/23/22 01:00 96 20 121/63 (85) 96 Nasal Cannula 3.00 03/23/22 01:00 96 03/23/22 00:10 36.8 Nasal Cannula 3.00 03/23/22 00:08 96 Nasal Cannula 3.00 03/23/22 00:00 117 21 122/60 (82) 98 Nasal Cannula 4.00 03/22/22 23:00 94 123 136/72 (90) 97 Nasal Cannula 4.00 03/22/22 22:15 89 21 98 Nasal Cannula 4.00 03/22/22 22:00 95 23 123/70 (84) 97 Nasal Cannula 5.00 03/22/22 21:44 98 Nasal Cannula 5.00 03/22/22 21:00 99 37 123/71 (84) 95 Nasal Cannula 5.00 03/22/22 20:06 116 26 125/75 (90) 94 Nasal Cannula 5.00 03/22/22 20:00 95 Nasal Cannula 4.00 03/22/22 19:00 37.0 Nasal Cannula 5.00 03/22/22 19:00 96 20 104/66 (76) 90 Nasal Cannula 5.00 03/22/22 19:00 96 03/22/22 18:46 93 Nasal Cannula 5.00 03/22/22 18:00 105 22 99/57 (71) 87 Nasal Cannula 4.00 03/22/22 17:55 37.4 03/22/22 17:18 94 Nasal Cannula 4.00 03/22/22 17:00 140 26 90 Nasal Cannula 4.00 03/22/22 16:00 94 Nasal Cannula 4.00 03/22/22 16:00 114 23 93/50 (64) 91 Nasal Cannula 4.00 03/22/22 15:33 94 Nasal Cannula 5.00 03/22/22 15:00 114 27 109/72 (84) 93 Nasal Cannula 4.00 03/22/22 14:23 37.2 118 96 03/22/22 14:00 122 33 120/76 (91) 93 Nasal Cannula 4.00 03/22/22 13:00 118 31 112/73 (86) 96 Nasal Cannula 4.00 03/22/22 12:41 114 03/22/22 12:00 37.2 03/22/22 12:00 94 Nasal Cannula 4.00 03/22/22 12:00 128 38 110/89 (96) 93 Nasal Cannula 4.00 03/22/22 11:00 114 39 117/71 (86) 93 Nasal Cannula 4.00 03/22/22 10:30 93 Nasal Cannula 5.00 I & O 03/23/22 06:58 Intake Total 4490.0 ml Output Total 3330 ml Balance 1160.0 ml Height & Weight Height: '" Weight: lbs. oz. kg; 46.44 BMI Method: General Appearance: No Apparent Distress, WD/WN, Obese HEENT: PERRL/EOMI, Moist Mucous Membranes; No Photophobia, No Scleral Icterus (L) Neck: Non Tender (IV in place on left side of neck, pt notes it is not causing discomfort), Supple Respiratory: No Respiratory Distress (currently in 4L of O2), Decreased Breath Sounds Cardiovascular: Regular Rate, Rhythm, No Murmur, Normal Peripheral Pulses Capillary Refill: Less Than 3 Seconds Peripheral Pulses: 2+ Radial Pulses (R), 2+ Radial Pulses (L) Gastrointestinal: non tender, soft, no organomegaly Extremity: Calf Tenderness (left), Swelling (swelling in left leg) Neurologic/Psychiatric: Alert, Oriented x3, No Motor/Sensory Deficits, Normal Mood/Affect Skin: Warm/Dry Results Lab Laboratory Tests 03/22/22 04:19 03/23/22 03:45 Assessment/Plan Assessment/Plan 1 MORALES HERNÁNDEZ MD Mar 23, 2022 10:05
[2022-03-23] MEDS ORDERED: SENNA W/DOCUSATE (SENOKOT S) TABLET PO NR (10:30)
[2022-03-23] MEDS ORDERED: polyethylene glycoL POWDER 17 GM (MIRALAX) PACK PO NR (10:30)
[2022-03-23] MEDS ORDERED: LACTULOSE SYRUP 10GM/15ML (ENULOSE) 30ML UDC PO NR (10:30)
--- NOTE | 2022-03-23 11:46 | Physical Therapy Daily Note ---
PT Daily Note-Current Subjective Patient in chair pre-tx, reports pain 5/10 posterior right shoulder, agrees to PT. Pain Section J - Health Conditions 1. Rarely or not at all 2. Occasionally 3. Frequently 4. Almost constantly 8. Unable to answer Pain Effect on Sleep: 1 Pain Interference with Therapy: 1 Pain Interference w/Day-to-Day: 1 Appearance Patient in chair post-tx with nurse call, phone, tray, all needs met. Mental Status Patient Orientation: Person, Place, Situation Attachments: Chest Tube, Oxygen Transfers SCALE: Activities may be completed with or without assistive devices. 1-Caimpgeclg-cjntxrn completes the activity by him/herself with no assistance from a helper. 5-Set-up or Clean-up Assistance-helper sets up or cleans up; patient completes activity. [place] assists only prior to or following the activity. 4-Supervision or Touching Assistance-helper provides verbal cues and/or touching/steadying and/or contact guard assistance as patient completes activity. Assistance may be provided throughout the activity or intermittently. 3-Partial/Moderate Assistance-helper does LESS THAN HALF the effort. [place] lifts, holds or supports trunk or limbs, but provides less than half the effort. 2-Substantial/Maximal Assistance-helper does MORE THAN HALF the effort. [place] l ifts or holds trunk or limbs and provides more than half the effort. 4-Vaterdcxw-aikvvl does ALL the effort. Patient does none of the effort to complete the activity. Or, the assistance of 2 or more helpers is required for the patient to complete the activity. If activity was not attempted, code reason: 7-Patient Refused. 9-Not Applicable-not attempted and the patient did not perform the activity before the current illness, exacerbation or injury. 10-Not Attempted due to Environmental Limitations-(lack of equipment, weather restraints, etc.). 88-Not Attempted due to Medical Conditions or Safety Concerns. Sit to Stand (QC): 4 Chair/Lie-us-Thnan Xfer(QC): 4 SBA Weight Bearing Right Lower Extremity: Right Full Weight Bearing Left Lower Extremity: Left Full Weight Bearing Gait Training Does the Patient Walk?: Yes Distance: 25' Walk 10 feet (QC): 4 Gait Persons Needed: 1 Gait Assistive Device: FWW Patient was able to walk a few steps without an assistive device, but tried with FFW due limp due to swelling of left leg from a blood clot. Patient has decreased foot clearance, antalgic gait on left due to swelling, decreased step length, and decreased gait speed. Wheelchair Training Does the Pt Use a Wheelchair?: No Exercises Seated Therapy Exercises: Ankle pumps, Long arc quads Seated Reps: 10 Treatments LE Strengthening, Ambulation Assessment Current Status: Good Progress PT Yard Driver Goals Yard Driver Goals PT Group Home Goals Time Frame: Mar 30, 2022 Roll Left & Right (QC): 6 Sit to Lying (QC): 6 Lying-Sitting on Side/Bed(QC): 6 Sit to Stand (QC): 6 Chair/Mvz-rv-Ptbpf Xfer(QC): 6 Toilet Transfer (QC): 6 Car Transfer (QC): 6 Does the Patient Walk: Yes Walk 10 feet (QC): 6 Walk 50ft with 2 Turns (QC): 6 Walk 150 ft (QC): 6 Walking 10ft on Uneven Surface: 6 1 Step (curb) (QC): 6 4 Steps (QC): 6 12 Steps (QC): 6 Picking up an Object (QC): 6 Does the Pt use WC or Scooter?: No Wheel 50 feet with 2 turns (QC: 9 Wheel 150 feet: 9 PT Plan Problem List Problem List: Activity Tolerance, Functional Strength, Safety, Balance, Gait, Transfer, Bed Mobility, ROM Treatment/Plan Treatment Plan: Continue Plan of Care Treatment Plan: Bed Mobility, Education, Functional Activity Sugey, Functional Strength, Gait, Safety, Therapeutic Exercise, Transfers Frequency: 6 times per week Estimated Hrs Per Day: .25 hour per day Patient and/or Family Agrees t: Yes Safety Risks/Education Patient Education: Gait Training, Transfer Techniques, Correct Positioning, Safety Issues Teaching Recipient: Patient Teaching Methods: Demonstration, Discussion Response to Teaching: Reinforcement Needed Discharge Recommendations Plan Patient will perform bed mobility and transfer training, endurance and balance training, gait and stair training in order to be independent at home. Time Time In: 1103 Time Out: 1117 Total Billed Treatment Time: 14 Total Billed Treatment 1 visit EVM 14min TARUN GOODRICH PT Mar 23, 2022 11:46
--- NOTE | 2022-03-23 11:58 | Physical Therapy Evaluation ---
PT Evaluation-General Medical Diagnosis Admission Date Mar 18, 2022 at 14:16 Medical Diagnosis: Hydropneumothorax, empyema Onset Date: Mar 18, 2022 Therapy Diagnosis Therapy Diagnosis: Debility Precautions Precautions/Isolations: Fall Prevention, Standard Precautions Weight Bear Status Right Lower Extremity: Right Full Weight Bearing Left Lower Extremity: Left Full Weight Bearing Referral Physician: Lucila Horne DO Reason for Referral: Evaluation/Treatment Medical History Pertinent Medical History: GERD Additional Medical History Patient states previous heart attack giving to her son Current History blood clot LLE Reviewed History: Yes Social History Home: Apartment Current Living Status: Children Entry Into Home: Stairs With Railing PT Steps Into Home: 4 Prior Prior Level of Function SCALE: Activities may be completed with or without assistive devices. 9-Ywserqfkxp-gddbqsf completes the activity by him/herself with no assistance from a helper. 5-Set-up or Clean-up Assistance-helper sets up or cleans up; patient completes activity. [place] assists only prior to or following the activity. 4-Supervision or Touching Assistance-helper provides verbal cues and/or touching/steadying and/or contact guard assistance as patient completes activity. Assistance may be provided throughout the activity or intermittently. 3-Partial/Moderate Assistance-helper does LESS THAN HALF the effort. [place] lifts, holds or supports trunk or limbs, but provides less than half the effort. 2-Substantial/Maximal Assistance-helper does MORE THAN HALF the effort. [place] lifts or holds trunk or limbs and provides more than half the effort. 5-Ckqayjgrg-zogdos does ALL the effort. Patient does none of the effort to complete the activity. Or, the assistance of 2 or more helpers is required for the patient to complete the activity. If activity was not attempted, code reason: 7-Patient Refused. 9-Not Applicable-not attempted and the patient did not perform the activity before the current illness, exacerbation or injury. 10-Not Attempted due to Environmental Limitations-(lack of equipment, weather restraints, etc.). 88-Not Attempted due to Medical Conditions or Safety Concerns. Bed Mobility: 6 Transfers (B,C,W/C): 6 Gait: 6 Stairs: 6 Indoor Mobility (Ambulation): Independent Stairs: Independent Prior Devices Use: None PT Evaluation-Current Subjective Patient in recliner pre-tx, reports pain 5/10 posterior left shoulder, agrees to PT. Pt/Family Goals Return to prior function of being independent at home. Objective Patient Orientation: Person, Place, Situation Attachments: Chest Tube, Oxygen ROM/Strength ROM Lower Extremities WFL Strength Lower Extremities RLE (hip flexion 5/5, knee extension 5/5, knee flexion 5/5, DF 5/5), LLE (hip flexion 3+/5, knee extension 5/5, knee flexion 5/5, DF 5/5) Sensory Hearing: Functional Sensation Right Lower Extremit: Intact Sensation Left Lower Extremity: Intact Transfers Sit to Stand (QC): 4 SBA Gait Does the Patient Walk?: Yes Mode of Locomotion: Walk Anticipated Mode of Locomotion: Walk Walk 10 feet (QC): 4 Distance: 20' Gait Assistive Device: FWW Comments/Gait Description Patient able to walk without assistive device, but advised to try FFW (SBA) due to antalgic gait (limp on left leg) due to swelling from blood clot. Patient has decreased gait speed, foot clearance, and step length. Wheelchair Training Does the Pt Use a Wheelchair?: No Balance Sitting Static: Normal Sitting Dynamic: Normal Standing Static: Normal Standing Dynamic: Fair Treatment LE Strengthening, Ambulation. Seated LE ex x10 (AP, LAQ) Assessment/Needs Patient ambulates with decreased step length, gait speed, and foot clearance with an antalagic gait (limp on left side) due to swelling from blood clot in LLE. Patient in recliner post-tx with nurse call, phone, tray, and all needs met. Rehab Potential: Good PT Agricultural Appraiser Goals Mcc Goals PT Agricultural Appraiser Goals Time Frame: Mar 30, 2022 Roll Left & Right (QC): 6 Sit to Lying (QC): 6 Lying-Sitting on Side/Bed(QC): 6 Sit to Stand (QC): 6 Chair/Umd-ns-Kjurk Xfer(QC): 6 Toilet Transfer (QC): 6 Car Transfer (QC): 6 Does the Patient Walk: Yes Walk 10 feet (QC): 6 Walk 50ft with 2 Turns (QC): 6 Walk 150 ft (QC): 6 Walking 10ft on Uneven Surface: 6 1 Step (curb) (QC): 6 4 Steps (QC): 6 12 Steps (QC): 6 Picking up an Object (QC): 6 Does the Pt use WC or Scooter?: No Wheel 50 feet with 2 turns (QC: 9 Wheel 150 feet: 9 PT Plan Problem List Problem List: Activity Tolerance, Functional Strength, Safety, Balance, Gait, Transfer, Bed Mobility, ROM Treatment/Plan Treatment Plan: Continue Plan of Care Treatment Plan: Bed Mobility, Education, Functional Activity Sugey, Functional Strength, Gait, Safety, Therapeutic Exercise, Transfers Treatment Duration: Mar 30, 2022 Frequency: 6 times per week Estimated Hrs Per Day: .25 hour per day Patient and/or Family Agrees t: Yes Safety Risks/Education Patient Education: Gait Training, Transfer Techniques, Correct Positioning, Safety Issues Teaching Recipient: Patient Teaching Methods: Demonstration, Discussion Response to Teaching: Reinforcement Needed Discharge Recommendations Plan Patient will perform bed mobility and transfer training, stairs and gait training, endurance and balance training in order to be independent at home. Therapy Discharge Recommendati: Home & Family Time Time In: 1103 Time Out: 1117 Total Billed Treatment Time: 14 Total Billed Treatment 1 visit EVM 14min TARUN GOODRICH PT Mar 23, 2022 11:58
--- NOTE | 2022-03-23 12:04 | Occupational Therapy Eval ---
OT Evaluation-General/PLF Medical Diagnosis Admission Date Mar 18, 2022 at 14:16 Medical Diagnosis: Hydropneumothorax, Empyema Onset Date: Mar 18, 2022 Therapy Diagnosis Therapy Diagnosis: Reduced ADL status Precautions Precautions/Isolations: Fall Prevention, Standard Precautions Referral Physician: Coleen Iglesias Reason: Evaluation/Treatment Medical History Pertinent Medical History: GERD, HTN Current History Pt admitted to ER with worsened right sided chest pain and was found to have right sided empyema with cavitary lesion. Pt lives in an apartment with her 7 year old daughter. She was independent with all ADLs, and IADLs. She does not drive but walks to [facility]. She did not use any AD at [facility]. Reviewed History: Yes Social History Home: Apartment Current Living Status: Children Entry Into Home: Stairs With Railing Steps Into Home: 4 ADL-Prior Level of Function SCALE: Activities may be completed with or without assistive devices. 7-Xxeibcnsmo-ljhaxef completes the activity by him/herself with no assistance from a helper. 5-Set-up or Clean-up Assistance-helper sets up or cleans up; patient completes activity. [place] assists only prior to or following the activity. 4-Supervision or Touching Assistance-helper provides verbal cues and/or touching/steadying and/or contact guard assistance as patient completes activity. Assistance may be provided throughout the activity or intermittently. 3-Partial/Moderate Assistance-helper does LESS THAN HALF the effort. [place] lifts, holds or supports trunk or limbs, but provides less than half the effort. 2-Substantial/Maximal Assistance-helper does MORE THAN HALF the effort. [place] lifts or holds trunk or limbs and provides more than half the effort. 6-Pvpqlbvrn-toeyor does ALL the effort. Patient does none of the effort to complete the activity. Or, the assistance of 2 or more helpers is required for the patient to complete the activity. If activity was not attempted, code reason: 7-Patient Refused. 9-Not Applicable-not attempted and the patient did not perform the activity before the current illness, exacerbation or injury. 10-Not Attempted due to Environmental Limitations-(lack of equipment, weather restraints, etc.). 88-Not Attempted due to Medical Conditions or Safety Concerns. Self Care: Independent Functional Cognition: Independent DME/Equipment: Tub/Shower Drive Self: No OT Current Status Subjective Pt sitting up in recliner upon arrival. She agrees to therapy eval. Appearance Pt was left sitting in recliner with nursing present. All needs within reach. 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 L shoulder: 4/5 ADL-Treatment Lower Body Dressing (QC): 3 (mod assist for threading: per clinical judgement) On/Off Footwear (QC): 1 Due to pain in back from chest tube of R side and her L LE edema, she was unable to reach her legs/feet to perform ADL task of doffing/donning of socks. Sit<>stand: SBA. Ambulation through room with FWW for safety. Pt heavily reliant on R side while ambulating due to swelling in L LE. Pt would benefit from short term skilled OT services to address further ADLs and strengthening. Education OT Patient Education: Correct positioning, Progress toward Goal/Update tx plan, Purpose of tx/functional activities, Reviewed precautions, Rehab process, Safety issues Teaching Recipient: Patient Teaching Methods: Discussion Response to Teaching: Verbalize Understanding OT It Security Consultant Goals Fpc Goals Time Frame: Apr 08, 2022 Oral Hygiene (QC): 6 Toileting Hygiene (QC): 6 Shower/Bathe Self (QC): 5 Upper Body Dressing (QC): 6 Lower Body Dressing (QC): 6 On/Off Footwear (QC): 6 Additional Goals: 1-Demonstrate ADL Tasks, 2-Verbalize Understanding, 3- ImproveStrength/Sugey 1=Demonstrate adherence to instructed precautions during ADL tasks. 2=Patient will verbalize/demonstrate understanding of assistive devices/modifications for ADL. 3=Patient will improve strength/tolerance for activity to enable patient to perform ADL's. OT Education/Plan Problem List/Assessment Assessment: Decreased Activ Tolerance, Decreased UE Strength, Impaired Funct Balance, Impaired I ADL's, Impaired Self-Care Skills Discharge Recommendations Plan/Recommendations: Continue POC Comment ongoing assessment Treatment Plan/Plan of Care Treatment,Training & Education: Yes Patient would benefit from OT for education, treatment and training to promote independence in ADL's, mobility, safety and/or upper extremity function for ADL's. Plan of Care: ADL Retraining, Functional Mobility, Group Exercise/Act as Ind, UE Funct Exercise/Act Treatment Duration: Apr 08, 2022 Frequency: 3 times per week (3-5x/week) Estimated Hrs Per Day: .25 hour per day Agreement: Yes Rehab Potential: Fair Time Start Time: 11:03 Stop Time: 11:17 Total Time Billed (hr/min): 14 Billed Treatment Time 1 visit Estelita Wang OT Mar 23, 2022 12:04
--- NOTE | 2022-03-23 12:16 | Progress Note - Hospitalist ---
BENJAMIN COTTER 03/23/22 1216: Subjective HPI/CC On Admission Date Seen by Provider: Mar 23, 2022 Time Seen by Provider: 08:00 CC: Right sided empyema HPI: This is a 36yoWF clinic patient of [facility] who presented to the Er with worsened right sided chest pain and was found to have right sided empyema with cavitary lesion. Dr Morales evaluated her CT scan and is planning on chest tube/VATS procedure. IV antibiotics were broadened out by EICU after I discussed the case with Dr Brandt. TB r/o so she was placed in isolation. I also spoke to Dr Morales in-depth along with Gregory Durbin in ER. Currently patient is still having pleurisy and I ordered Toradol. I have reviewed [facility] last visit. Patient was placed on Bactrim for Strep A pharyngitis on 03/07/22. 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 Initial imaging found small apical right pneumothorax as well as dense consolidation in right lung base. She was started on lovenox for left leg DVT. She takes hydroxyurea for a Aron-2 myeloproliferative disorder and is immunosuppressed as a result. On 03/21, she underwent VATS, right lung decortication of middle and lower lobes with release of entrapped upper lobe. She states that she is feeling much better today. No new concerns. She notes intermittent SOB, denies N/V, chest pain, leg pain, constipation or diarrhea. She is ambulating with assistance and has been using her spirometer. Review of Systems HEENT: No Head Aches, No Visual Changes Pulmonary: Dyspnea, Cough Cardiovascular: No: Chest Pain Gastrointestinal: No: Nausea, Vomiting, Abdominal Pain, Diarrhea, Constipation Genitourinary: No Dysuria, No Frequency, No Incontinence Neurological: No: Confusion Focused Exam Sepsis Stage: Ruled Out Reason for ruling out sepsis: Patient does not meet SIRS criteria for diagnosis of sepsis Objective Exam Vital Signs Vital Signs Date Time Temp Pulse Resp B/P (MAP) Pulse Ox O2 Delivery O2 Flow Rate FiO2 03/23/22 10:00 86 19 130/79 (96) 97 Nasal Cannula 3.00 03/23/22 08:24 37.6 03/18/22 18:07 21 Capillary Refill : Less Than 3 Seconds General Appearance: No Apparent Distress, WD/WN, Obese HEENT: PERRL/EOMI Neck: Full Range of Motion, Normal Inspection, Non Tender, Supple; No Carotid Bruit, No JVD Respiratory: No Accessory Muscle Use, No Respiratory Distress, Decreased Breath Sounds (Right lung), Wheezing (Bilaterally) Cardiovascular: Regular Rate, Rhythm, No Edema, No Gallop, No JVD, No Murmur, Normal Peripheral Pulses Gastrointestinal: Normal Bowel Sounds, No Organomegaly, No Pulsatile Mass, Non Tender, Soft Extremity: Inflammation (Due to DVT in left leg), Swelling Neurologic/Psychiatric: Alert, Oriented x3, No Motor/Sensory Deficits, Normal Mood/Affect Skin: Normal Color, Erythema (Mild erythema and warmth in left lower leg) Results/Procedures Lab Laboratory Tests 03/23/22 03:45 Patient resulted labs reviewed. Radiology Date of Exam:03/23/22 CHEST 1 VIEW, AP/PA ONLY INDICATION: Postop follow-up. Comparison with 03/22/2022. FINDINGS: Right chest tube remains present unchanged. Bibasilar atelectasis remains present. Small right pleural effusion. No pneumothorax. Left jugular line unchanged. Heart is mildly enlarged. IMPRESSION: Postoperative residue with bibasilar atelectasis and small right pleural effusion again noted. Dictated by: Dictated on workstation # [id number] Dict: 03/23/22928 Trans: 03/23/22946 KENYETTA [id number] Interpreted by: SAAD MCGHEE MD Electronically signed by: SAAD MCGHEE MD 03/23/22946 Date of Exam:03/21/22 US VENOUS LOWER EXT LT EXAMINATION: US Lower Extremity Venous Duplex Left. TECHNIQUE: Multiple real-time grayscale images were obtained over the left lower extremity in various projections. Additional spectral analysis and color Doppler duplex images were also obtained. HISTORY: Left lower extremity pain and swelling. COMPARISON: None available. FINDINGS: Occlusive deep vein thrombus is seen throughout the left lower extremity venous system involving the left common femoral vein, profunda femoris, superficial femoral, popliteal, and calf vessels. IMPRESSION: 1. Large burden of occlusive deep vein thrombus throughout the left lower extremity venous system. Results were given to the patient's nurse immediately following the exam by the club director. Dictated by: Dictated on workstation # [id number] Dict: 03/21/22 1027 Trans: 03/21/22 1033 CV [id number] Interpreted by: CHAYITO CERVANTES DO Electronically signed by: CHAYITO CERVANTES DO 03/21/22 1033 Meds Med list provides further details Lactulose, polyethylene glycol, senna for bowel regularity Enoxaparin sodium for DVT Ondansetron for nausea Doxazosin mesylate for hypertension as well as lisinopril Pantoprazole for GERD Vancomycin and meropenem for prophylactic treatment post VATS surgery and chest tube placement Hydromorphone, morphine sulfate, oxycodone, toradol for pain Procedures VATS procedure and chest tube placement as described in HPI Assessment/Plan Assessment and Plan Assess & Plan/Chief Complaint Right lung hydropneumothorax - patient underwent VATS procedure and chest tube placement, followed by surgery. Placed on antibiotic prophylaxis with vancomycin and meropenem Left Leg DVT - lovenox and careful monitoring for improvement, worsening discomfort, or new onset SOB Post-op pain - hydromorphone, morphine, oxycodone, toradol Post-op ileus - lactulose, polyethylene glycol, senna Hypertension - continue medical management Depression - continue medical management GERD - pantoprazole Nausea - ondansetron Clinical Quality Measures DVT/VTE Risk/Contraindication: VTE Addressed: Yes VTE Present on Admission: Yes LUCILA ZHAO DO 03/23/222041: Subjective Subjective/Events-last exam Pt is dramatically improved Transferring to the floor Vancomycin and Meropenem maintained Wheezing bilaterally but she is on breathing treatments Supervisory-Addendum Brief Verification & Attestation Participated in pt care: history, MDM, physical Personally performed: exam, history, MDM, supervision of care Care discussed with: Medical Student Procedures: n/a Results interpretation: Verified all documentation Verification and Attestation of Medical Student E/M Service A medical student performed and documented this service in my presence. I reviewed and verified all information documented by the medical student and made modifications to such information, when appropriate. I personally performed the physical exam and medical decision making. Lucila Zhao, Mar 23, 2022,20:43 BENJAMIN COTTER Mar 23, 2022 12:16 LUCILA ZHAO DO Mar 23, 2022 20:42
[2022-03-23] MEDS: ENOXAPARIN 300 MG/3 ML (LOVENOX) MULTI-DOSE VIAL SQ SCH ×2 (12:24→23:26)
[2022-03-23] MEDS ORDERED: IBUPROFEN TABLET 200 MG TAB PO PRN (15:00)
[2022-03-23 15:36] VITALS: BP 123/74
[2022-03-23 16:36] VITALS: BP 125/82
[2022-03-23] MEDS ORDERED: TROUGH ORDER-PHARMACY XX ONE (17:00)
[2022-03-23] MEDS: SENNA W/DOCUSATE (SENOKOT S) TABLET PO SCH ×2 (19:21→20:48)
[2022-03-23 20:13] VITALS: BP 138/81
--- NOTE | 2022-03-23 20:16 | Diagnostic Imaging Report ---
INDICATION: Indwelling chest tube. COMPARISON: Earlier same day FINDINGS: Single frontal radiographic view of the chest was obtained and again demonstrates indwelling right-sided chest tube with persistent moderate right-sided pleural effusion and associated atelectasis. Scattered areas of atelectasis are also noted within the left mid and lower lung field. There is no large effusion on the left. No pneumothorax seen on either side. There is small amount of right-sided soft tissue emphysema. Cardiac silhouette and pulmonary vasculature are within normal limits. IMPRESSION: 1. Stable exam of the chest showing indwelling right-sided chest tube with persistent moderate effusion and associated atelectasis. 2. Stable atelectasis within the left mid and lower lung field as well. Dictated by: Dictated on workstation # [id number]
[2022-03-23] MEDS: doxAzosin 2 MG (CARDURA) TAB PO SCH (20:46)
[2022-03-23] MEDS: LACTULOSE SYRUP 10GM/15ML (ENULOSE) 30ML UDC PO SCH (20:48)
[2022-03-23] MEDS: polyethylene glycoL POWDER 17 GM (MIRALAX) PACK PO SCH (20:48)
[2022-03-24] VITALS (7 sets, daily range): BP systolic 115–140; BP diastolic 64–87
[2022-03-24] MEDS: MEROPENEM 1,000 MG in NS (IVPB) 100 ML IV SCH ×3 (01:57→18:06)
[2022-03-24] MEDS: RT-ALBUTEROL HFA 8.5 GM INHALER IH SCH ×6 (02:25→22:09)
[2022-03-24] MEDS: PANTOPRAZOLE 40 MG (PROTONIX) TAB PO SCH (05:57)
[2022-03-24] MEDS: VANCOMYCIN 1250 MG/NS 250 ML IVPB IV SCH ×4 (05:58→19:10)
[2022-03-24 06:28] LABS: BASOPHILS % (AUTO) 0 % (0-10); EOSINOPHILS # (AUTO) 0.1 10^3/uL (0.0-0.3); EOSINOPHILS % (AUTO) 2 % (0-10); HEMATOCRIT 26 % (35-52); HEMOGLOBIN 8.4 g/dL (11.5-16.0); LYMPHOCYTES # (AUTO) 1.1 10^3/uL (1.0-4.0); LYMPHOCYTES % (AUTO) 25 % (12-44); MEAN CORPUSCULAR HEMOGLOBIN 36 pg (25-34); MEAN CORPUSCULAR HGB CONC 33 g/dL (32-36); MEAN CORPUSCULAR VOLUME 109 fL (80-99); MEAN PLATELET VOLUME 9.3 fL (9.0-12.2); MONOCYTES # (AUTO) 0.4 10^3/uL (0.0-1.0); MONOCYTES % (AUTO) 9 % (0-12); NEUTROPHILS # (AUTO) 2.9 10^3/uL (1.8-7.8); NEUTROPHILS % (AUTO) 63 % (42-75); PLATELET COUNT 193 10^3/uL (130-400); WHITE BLOOD COUNT 4.6 10^3/uL (4.3-11.0)
[2022-03-24 06:49] LABS: BILIRUBIN,TOTAL 0.5 MG/DL (0.1-1.0); CALCIUM 9.2 MG/DL (8.5-10.1); CREATININE SERUM 0.67 MG/DL (0.60-1.30); MAGNESIUM 1.8 MG/DL (1.6-2.4); POTASSIUM 4.3 MMOL/L (3.6-5.0); TOTAL PROTEIN 6.8 GM/DL (6.4-8.2)
--- NOTE | 2022-03-24 07:31 | Progress Note - Surgery ---
LEILANI HIGUERA 03/24/22 0731: Subjective Date Seen by a Provider: Mar 24, 2022 Time Seen by a Provider: 07:25 Subjective/Events-last exam Our pt is 36 yo, Vita Baez, who is at POD#3 after VATS procedure and chest tube placement on 03/21 for right hydropneumothorax. This morning pt states she is doing alright after being moved to the the [facility] Surg floor from the ICU yesterday. Denies questions or concerns, yet has a complaint of right shoulder pain which has been present since her arrival to the hospital. Her pain is along her right chest wall in to her shoulder and proximal humerus. She states that it is hurting all the time but is unable to provide descriptors. States it feels like a 8/10 when she moves her right arm. Pt noted she is receiving pain medication and that she feels her pain is under control. Pt is eating well, 3x per day. She is using her spirometer and ambulating to the bathroom and to her chair with assistance. Mentions she has not had a bowel movement since before Monday but is urinating frequently. Her left leg is swollen compare to the right due to a blood clot but pt states it does not hurt. Pt denies shortness of breath and is on 2L of O2 via nasal cannula. Chest tubes are in place and draining serosanginous fluid. Approx 40mL have drained since 03/23 at 1900. Dressing is clean, dry, and intact. Review of Systems General: No Chills, No Fatigue HEENT: No Head Aches, No Visual Changes, No Dysphasia Pulmonary: No Dyspnea; Cough Cardiovascular: Edema (swelling in left leg); No: Chest Pain Gastrointestinal: No: Nausea, Vomiting Genitourinary: No Dysuria, No Retention Musculoskeletal: shoulder pain (pt complains of right shoulder pain which extend from right chest wall to proximal humerus), arm pain (pt complains of right shoulder pain which extend from right chest wall to proximal humerus); No: leg pain Neurological: No: Weakness, Numbness Objective Exam Vital Signs Date Time Temp Pulse Resp B/P (MAP) Pulse Ox O2 Delivery O2 Flow Rate FiO2 03/24/22 06:48 96 Nasal Cannula 2.00 03/24/22 04:03 37.1 103 20 140/87 (104) 96 Nasal Cannula 3.00 03/24/22 02:25 95 Nasal Cannula 2.00 03/24/22 01:38 36.3 104 20 137/87 (104) 96 Nasal Cannula 3.00 03/24/22 00:25 36.2 113 20 138/84 (102) 95 Nasal Cannula 3.00 03/23/22 21:34 95 Nasal Cannula 2.00 03/23/22 20:50 Nasal Cannula 2.00 03/23/22 20:13 37.4 107 18 138/81 (100) 97 Nasal Cannula 2.00 03/23/22 18:26 97 Nasal Cannula 2.00 03/23/22 16:36 37.3 98 26 125/82 (96) 100 Nasal Cannula 3.00 03/23/22 15:50 100 Nasal Cannula 3.00 03/23/22 15:36 36.9 102 24 123/74 (90) 100 Nasal Cannula 3.00 03/23/22 15:03 98 Nasal Cannula 2.00 03/23/22 14:00 89 23 Nasal Cannula 2.00 03/23/22 13:36 91 03/23/22 13:00 98 30 Nasal Cannula 2.00 03/23/22 12:00 94 Nasal Cannula 4.00 03/23/22 12:00 96 Nasal Cannula 2.00 03/23/22 11:30 Nasal Cannula 2.00 03/23/22 11:20 98 Nasal Cannula 2.00 03/23/22 11:00 91 20 97 Nasal Cannula 2.00 03/23/22 10:00 86 19 130/79 (96) 97 Nasal Cannula 3.00 03/23/22 09:00 126 31 127/109 (115) 95 Nasal Cannula 3.00 03/23/22 08:24 37.6 03/23/22 08:00 94 Nasal Cannula 4.00 03/23/22 08:00 129 32 126/81 (96) 93 Nasal Cannula 3.00 I & O 03/24/22 07:00 Intake Total 1990 ml Output Total 1075 ml Balance 915 ml Capillary Refill : Less Than 3 Seconds General Appearance: No Apparent Distress, WD/WN, Obese HEENT: PERRL/EOMI; No Scleral Icterus (L), No Scleral Icterus (R) Neck: Full Range of Motion, Normal Inspection, Non Tender, Supple; No Carotid Bruit, No JVD Respiratory: No Chest Non Tender (chest wall tenderness to palpation on right side); No Accessory Muscle Use, No Respiratory Distress, Decreased Breath Sounds (Right lung), Wheezing (Bilaterally) Cardiovascular: Regular Rate, Rhythm, No Edema, No Gallop, No JVD, No Murmur, Normal Peripheral Pulses Peripheral Pulses: 2+ Radial Pulses (R), 2+ Radial Pulses (L) Gastrointestinal: non tender, soft, no organomegaly Extremity: Inflammation (Due to DVT in left leg), Swelling Neurologic/Psychiatric: Alert, Oriented x3, No Motor/Sensory Deficits, Normal Mood/Affect Skin: Normal Color, Erythema (Mild erythema and warmth in left lower leg) Results Lab Laboratory Tests 03/23/22 17:50: Vancomycin Level Trough 11.9 03/24/22 06:05: White Blood Count 4.6, Red Blood Count 2.33L, Hemoglobin 8.4L, Hematocrit 26L, Mean Corpuscular Volume 109H, Mean Corpuscular Hemoglobin 36H, Mean Corpuscular Hemoglobin Concent 33, Red Cell Distribution Width 13.6, Platelet Count 193, Mean Platelet Volume 9.3, Immature Granulocyte % (Auto) 1, Neutrophils (%) (Auto) 63, Lymphocytes (%) (Auto) 25, Monocytes (%) (Auto) 9, Eosinophils (%) (Auto) 2, Basophils (%) (Auto) 0, Neutrophils # (Auto) 2.9, Lymphocytes # (Auto) 1.1, Monocytes # (Auto) 0.4, Eosinophils # (Auto) 0.1, Basophils # (Auto) 0.0, Immature Granulocyte # (Auto) 0.0, Sodium Level 138, Potassium Level 4.3, Chloride Level 103, Carbon Dioxide Level 23, Anion Gap 12, Blood Urea Nitrogen 8, Creatinine 0.67, Estimat Glomerular Filtration Rate 115, BUN/Creatinine Ratio 12, Glucose Level 111H, Calcium Level 9.2, Corrected Calcium 10.0, Magnesium Level 1.8, Total Bilirubin 0.5, Aspartate Amino Transf (AST/SGOT) 54H, Alanine Aminotransferase (ALT/SGPT) 89H, Alkaline Phosphatase 217H, Total Protein 6.8, Albumin 3.0L Microbiology 03/21/22 Gram Stain - Final, Resulted 03/21/22 Anaerobic Culture - Preliminary, Resulted No anaerobes isolated 03/21/22 Surgical Culture - Preliminary, Resulted No growth 03/21/22 Fungal Culture 1 - Preliminary, Resulted 03/18/22 Blood Culture - Final, Complete No growth Radiology NAME: VITA BAEZ [facility] REC#: [id number] PT STATUS: ADM IN : 1985 PHYSICIAN: MARGOTH ZHAO DO ADMIT DATE: 03/18/22 Signed Date of Exam:03/24/22 CHEST 1 VIEW, AP/PA ONLY INDICATION: Pneumonia. COMPARISON: 02/20/2022. TECHNIQUE: Single radiograph of the chest dated 03/24/2022 FINDINGS: Left IJ central venous catheter is stable. 2 right-sided chest tubes are again identified. The cardiac silhouette is unchanged. No significant pulmonary vascular congestion. Soft tissue gas within the right chest is again identified. Linear interstitial opacities within the left lung base are again identified and stable. Right basilar pleural-parenchymal opacity is again seen, appearing similar to the prior examination with potential elevation of the right hemidiaphragm. No pneumothorax. No acute osseous abnormality. IMPRESSION: Stable appearing examination with small right basilar pleural-parenchymal opacity and elevation right hemidiaphragm with mild left basilar atelectasis. Unchanged lines and tubes without adverse change. Dictated by: Dictated on workstation # [id number] Dict: 03/24/22818 Trans: 03/24/22 1031 [id number] Interpreted by: SUDARSHAN ROBINS MD Electronically signed by: SUDARSHAN ROBINS MD 03/24/22 1031 Assessment/Plan Assessment/Plan Assessment/Plan S/P Right VATS with Decortication - POD#3 Left leg DVT Venous insufficiency Bronchitis Recurrent pneumonia Immunosuppressed on Hydroxyurea treatment Chronic Diarrhea Pt to continue ambulation, spirometer use, and RT visits. Continue O2 but try to wean down. Continue Lovenox. Clinical Quality Measures DVT/VTE Risk/Contraindication: VTE Addressed: Yes VTE Present on Admission: Yes TINO LEE DO 03/25/22 0011: Subjective Subjective/Events-last exam Patient breathing okay, Using incentive spirometer some. Right shoulder pain. Atrium on water seal, serosang draiange. Chest x ray IMPRESSION: Stable appearing examination with small right basilar pleural-parenchymal opacity and elevation right hemidiaphragm with mild left basilar atelectasis. Unchanged lines and tubes without adverse change. Currently denies n/v fever sweats chills shortness of breath or chest pain. Objective Exam General Appearance: No Apparent Distress, WD/WN, Obese HEENT: PERRL/EOMI Neck: Non Tender, Supple Respiratory: No Chest Non Tender (chest wall tenderness to palpation on right side); No Accessory Muscle Use, No Respiratory Distress Cardiovascular: Regular Rate, Rhythm Gastrointestinal: non tender, soft Extremity: Inflammation (Due to DVT in left leg), Swelling Neurologic/Psychiatric: Alert, Oriented x3, No Motor/Sensory Deficits, Normal Mood/Affect Skin: Normal Color, Warm/Dry Lymphatic: No Adenopathy Assessment/Plan Assessment/Plan Assessment/Plan S/P Right VATS with Decortication - POD#3 Left leg DVT Venous insufficiency Bronchitis Recurrent pneumonia Immunosuppressed on Hydroxyurea treatment Chronic Diarrhea Pt to continue ambulation, Instructed on spirometer use and worked with her to do correctly RT visits. Continue O2 but try to wean down. Continue Lovenox. Repeat chest x ray Leaving chest tubes in so can continue to drain. Supervisory-Addendum Brief Verification & Attestation Participated in pt care: history, MDM, physical Personally performed: exam, history, MDM, supervision of care Care discussed with: Medical Student Procedures: n/a Results interpretation: Verified all documentation Verification and Attestation of Medical Student E/M Service A medical student performed and documented this service in my presence. I reviewed and verified all information documented by the medical student and made modifications to such information, when appropriate. I personally performed the physical exam and medical decision making. Tino Lee, Mar 24, 2022,23:51 LEILANI HIGUERA Mar 24, 2022 07:31 TINO LEE DO Mar 25, 2022 00:11
--- NOTE | 2022-03-24 08:59 | Diagnostic Imaging Report ---
INDICATION: Pneumonia. COMPARISON: 02/20/2022. TECHNIQUE: Single radiograph of the chest dated 03/24/2022 FINDINGS: Left IJ central venous catheter is stable. 2 right-sided chest tubes are again identified. The cardiac silhouette is unchanged. No significant pulmonary vascular congestion. Soft tissue gas within the right chest is again identified. Linear interstitial opacities within the left lung base are again identified and stable. Right basilar pleural-parenchymal opacity is again seen, appearing similar to the prior examination with potential elevation of the right hemidiaphragm. No pneumothorax. No acute osseous abnormality. IMPRESSION: Stable appearing examination with small right basilar pleural-parenchymal opacity and elevation right hemidiaphragm with mild left basilar atelectasis. Unchanged lines and tubes without adverse change. Dictated by: Dictated on workstation # [id number]
[2022-03-24] MEDS: ZIPRASIDONE 20 MG (GEODON) CAP PO SCH ×2 (09:20→18:06)
[2022-03-24] MEDS: DOCUSATE SODIUM 100 MG (COLACE) CAP PO SCH ×2 (09:20→20:12)
[2022-03-24] MEDS: lisINopril 40 MG (PRINIVIL) TABLET PO SCH (09:21)
[2022-03-24] MEDS: buPROPion SR 150 MG (WELLBUTRIN SR) TAB PO SCH ×2 (09:21→20:12)
[2022-03-24] MEDS: LORATADINE (CLARITIN) 10 MG TAB PO SCH (09:21)
[2022-03-24] MEDS: SENNA W/DOCUSATE (SENOKOT S) TABLET PO SCH ×2 (09:21→20:12)
[2022-03-24] MEDS: SENNOSIDES 8.6 MG (SENOKOT) TAB PO SCH ×2 (09:21→20:12)
[2022-03-24] MEDS: LACTULOSE SYRUP 10GM/15ML (ENULOSE) 30ML UDC PO SCH ×2 (09:21→20:12)
[2022-03-24] MEDS: morphine IMMEDIATE RELEASE 15 MG TABLET PO PRN (09:22)
--- NOTE | 2022-03-24 10:36 | Occupational Ther Daily Note ---
OT Current Status-Daily Note Subjective Pt alert in bed. Pt agrees to therapy. Pt c/o moderate pain in L LE. Mental Status/Objective Patient Orientation: Person, Place, Time, Situation Attachments: Chest Tube, IV, Oxygen ADL-Treatment Pt EOB independently. Pt completed sponge bath of upper body extremities and [place] area by self after set up/clean up. Pt required assist for bathing lower extremities due to increased pain bending over with chest tube. Pt completed oral hygiene by self after set up/clean up. Pt ambulated to recliner independently. Pt took extended amount of time for task due to soreness and swelling in L LE, causing limited ROM. Call light/phone in reach. Pt in recliner and all needs met in room. Therapy Code Descriptions/Definitions Functional [place] Measure: 0=Not Assessed/NA 4=Minimal Assistance 1=Total Assistance 5=Supervision or Setup 2=Maximal Assistance 6=Modified [place] 3=Moderate Assistance 7=Complete IndependenceSCALE: Activities may be completed with or without assistive devices. 1-Jonrcunede-eepvzyy completes the activity by him/herself with no assistance from a helper. 5-Set-up or Clean-up Assistance-helper sets up or cleans up; patient completes activity. [place] assists only prior to or following the activity. 4-Supervision or Touching Assistance-helper provides verbal cues and/or touching/steadying and/or contact guard assistance as patient completes activity. Assistance may be provided throughout the activity or intermittently. 3-Partial/Moderate Assistance-helper does LESS THAN HALF the effort. [place] lifts, holds or supports trunk or limbs, but provides less than half the effort. 2-Substantial/Maximal Assistance-helper does MORE THAN HALF the effort. [place] lifts or holds trunk or limbs and provides more than half the effort. 8-Sxjcrspzz-kyzhhd does ALL the effort. Patient does none of the effort to complete the activity. Or, the assistance of 2 or more helpers is required for the patient to complete the activity. If activity was not attempted, code reason: 7-Patient Refused. 9-Not Applicable-not attempted and the patient did not perform the activity before the current illness, exacerbation or injury. 10-Not Attempted due to Environmental Limitations-(lack of equipment, weather restraints, etc.). 88-Not Attempted due to Medical Conditions or Safety Concerns. Oral Hygiene (QC): 5 Bathing Location: L Arm, R Arm, L Upper Leg, R Upper Leg, Chest, Abdomen, Buttocks, Perineal Area Shower/Bathe Self (QC): 4 (Min A) On/Off Footwear: 2 (due in increased back pain from chest tube) OT Fdc Goals Extrusion Utility Worker Goals Time Frame: Apr 08, 2022 Oral Hygiene (QC): 6 Toileting Hygiene (QC): 6 Shower/Bathe Self (QC): 5 Upper Body Dressing (QC): 6 Lower Body Dressing (QC): 6 On/Off Footwear (QC): 6 Additional Goals: 1-Demonstrate ADL Tasks, 2-Verbalize Understanding, 3- ImproveStrength/Sugey 1=Demonstrate adherence to instructed precautions during ADL tasks. 2=Patient will verbalize/demonstrate understanding of assistive devices/modifications for ADL. 3=Patient will improve strength/tolerance for activity to enable patient to perform ADL's. OT Education/Plan Problem List/Assessment Assessment: Decreased Activ Tolerance, Impaired Self-Care Skills Discharge Recommendations Plan/Recommendations: Continue POC Treatment Plan/Plan of Care Patient would benefit from OT for education, treatment and training to promote independence in ADL's, mobility, safety and/or upper extremity function for ADL 's. Plan of Care: ADL Retraining, Functional Mobility, Group Exercise/Act as Ind, UE Funct Exercise/Act Treatment Duration: Apr 08, 2022 Frequency: 3 times per week (3-5x/week) Estimated Hrs Per Day: .25 hour per day Agreement: Yes Rehab Potential: Fair Time Start Time: 09:35 Stop Time: 10:00 DATE: Mar 24, 2022 Total Time Billed (hr/min): 25 Billed Treatment Time 1 visit ADL 2 (25 min) JENN PATEL Mar 24, 2022 10:36
[2022-03-24] MEDS ORDERED: BISACODYL 10 MG SUPP (DULCOLAX) PR NR (11:00)
[2022-03-24] MEDS: ENOXAPARIN 300 MG/3 ML (LOVENOX) MULTI-DOSE VIAL SQ SCH (11:25)
--- NOTE | 2022-03-24 11:36 | Physical Therapy Daily Note ---
PT Daily Note-Current Subjective Patient in recliner pre tx, agrees to PT, has 8/10 pain in right arm and back. Pain Section J - Health Conditions 1. Rarely or not at all 2. Occasionally 3. Frequently 4. Almost constantly 8. Unable to answer Pain Effect on Sleep: 1 Pain Interference with Therapy: 1 Pain Interference w/Day-to-Day: 1 Appearance Patient sitting EOB post tx, nurse in room, has some stuff to do with the patient. Mental Status Patient Orientation: Person, Place, Situation Attachments: Chest Tube, Oxygen Transfers SCALE: Activities may be completed with or without assistive devices. 1-Kmrshkzekz-warvxng completes the activity by him/herself with no assistance from a helper. 5-Set-up or Clean-up Assistance-helper sets up or cleans up; patient completes activity. [place] assists only prior to or following the activity. 4-Supervision or Touching Assistance-helper provides verbal cues and/or willie zakiya/steadying and/or contact guard assistance as patient completes activity. Assistance may be provided throughout the activity or intermittently. 3-Partial/Moderate Assistance-helper does LESS THAN HALF the effort. [place] lifts, holds or supports trunk or limbs, but provides less than half the effort. 2-Substantial/Maximal Assistance-helper does MORE THAN HALF the effort. [place] lifts or holds trunk or limbs and provides more than half the effort. 9-Lszclsvfm-wmkpxa does ALL the effort. Patient does none of the effort to complete the activity. Or, the assistance of 2 or more helpers is required for the patient to complete the activity. If activity was not attempted, code reason: 7-Patient Refused. 9-Not Applicable-not attempted and the patient did not perform the activity before the current illness, exacerbation or injury. 10-Not Attempted due to Environmental Limitations-(lack of equipment, weather restraints, etc.). 88-Not Attempted due to Medical Conditions or Safety Concerns. Sit to Stand (QC): 6 Chair/Jhh-ry-Uliej Xfer(QC): 6 Weight Bearing Right Lower Extremity: Right Full Weight Bearing Left Lower Extremity: Left Full Weight Bearing Gait Training Distance: 50' Walk 10 feet (QC): 6 Walk 50 ft with 2 Turns(QC): 6 Gait Assistive Device: None slightly antalgic ambulation, slightly SOB after ambulation Exercises Seated Therapy Exercises: Ankle pumps, Long arc quads, Hip flexion Seated Reps: 20 Treatments ambulation, LE strengthening Assessment Current Status: Fair Progress more pain today with exercises and ambulation, patient has quite a bit of swelling in her left leg, states if feels very heavy and weak PT Hostage Negotiator Goals Hostage Negotiator Goals PT Nursing Home Goals Time Frame: Mar 30, 2022 Roll Left & Right (QC): 6 Sit to Lying (QC): 6 Lying-Sitting on Side/Bed(QC): 6 Sit to Stand (QC): 6 Chair/Hsf-vq-Rjvez Xfer(QC): 6 Toilet Transfer (QC): 6 Car Transfer (QC): 6 Does the Patient Walk: Yes Walk 10 feet (QC): 6 Walk 50ft with 2 Turns (QC): 6 Walk 150 ft (QC): 6 Walking 10ft on Uneven Surface: 6 1 Step (curb) (QC): 6 4 Steps (QC): 6 12 Steps (QC): 6 Picking up an Object (QC): 6 Does the Pt use WC or Scooter?: No Wheel 50 feet with 2 turns (QC: 9 Wheel 150 feet: 9 PT Plan Problem List Problem List: Activity Tolerance, Functional Strength, Safety, Balance, Gait, Transfer, Bed Mobility, ROM Treatment/Plan Treatment Plan: Continue Plan of Care Treatment Plan: Bed Mobility, Education, Functional Activity Sugey, Functional Strength, Gait, Safety, Therapeutic Exercise, Transfers Treatment Duration: Mar 30, 2022 Frequency: 6 times per week Estimated Hrs Per Day: .25 hour per day Patient and/or Family Agrees t: Yes Safety Risks/Education Patient Education: Gait Training, Transfer Techniques, Correct Positioning, Safety Issues Teaching Recipient: Patient Teaching Methods: Demonstration, Discussion Response to Teaching: Reinforcement Needed Time Time In: 1113 Time Out: 1123 DATE: Mar 24, 2022 Total Billed Treatment Time: 10 Total Billed Treatment 1 visit FA TARUN ANDRADE PT Mar 24, 2022 11:36
--- NOTE | 2022-03-24 13:19 | Progress Note - Hospitalist ---
BENJAMIN COTTER 03/24/22 1319: Subjective HPI/CC On Admission Date Seen by Provider: Mar 24, 2022 Time Seen by Provider: 09:30 CC: Right sided empyema HPI: This is a 36yoWF clinic patient of [facility] who presented to the Er with worsened right sided chest pain and was found to have right sided empyema with cavitary lesion. Dr Morales evaluated her CT scan and is planning on chest tube/VATS procedure. IV antibiotics were broadened out by EICU after I discussed the case with Dr Brandt. TB r/o so she was placed in isolation. I also spoke to Dr Morales in-depth along with Gregory Durbin in ER. Currently patient is still having pleurisy and I ordered Toradol. I have reviewed [facility] last visit. Patient was placed on Bactrim for Strep A pharyngitis on 03/07/22. PMH: ADHD Anxiety HTN Bipolar 2 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 HLP GERD Subjective/Events-last exam Patient is a 36 yo woman admitted from ER after 2 weeks productive cough and SOB. Initial imaging found small apical right pneumothorax as well as dense consolidation in right lung base. She underwent VATS procedure and chest tube placement and her condition has been improving since. The patient notes that she is feeling better today than she was yesterday. Reports minor SOB, pain at chest tube site. Denies N/V, abdominal pain, chills, lightheadedness, or malaise. She has not yet had a BM but is passing flatus. She is ambulatory with assistance. Review of Systems General: No Chills, No Malaise HEENT: No Head Aches, No Visual Changes Pulmonary: Dyspnea Cardiovascular: Chest Pain (Due to tube placement); No: Lt Headedness Gastrointestinal: No: Nausea, Vomiting, Abdominal Pain, Diarrhea, Constipation Neurological: No: Numbness, Change in speech, Confusion Focused Exam Sepsis Stage: Ruled Out Reason for ruling out sepsis: Sepsis is unlikely due to incomplete SIRS criteria Objective Exam Vital Signs Vital Signs Date Time Temp Pulse Resp B/P (MAP) Pulse Ox O2 Delivery O2 Flow Rate FiO2 03/24/22 11:43 36.6 101 18 115/64 (81) 95 Nasal Cannula 2.00 03/18/22 18:07 21 Capillary Refill : Less Than 3 Seconds General Appearance: No Apparent Distress, Obese Neck: Normal Inspection, Non Tender, Supple; No Carotid Bruit, No JVD Respiratory: No Accessory Muscle Use, No Respiratory Distress, Decreased Breath Sounds (on right), Wheezing (Bilaterally, though her left sided wheezing is improved from yesterday) Cardiovascular: Regular Rate, Rhythm, No Edema, No Gallop, No JVD, No Murmur, Normal Peripheral Pulses (Radial and dorsalis pedis) Gastrointestinal: Normal Bowel Sounds, No Organomegaly, No Pulsatile Mass, Non Tender, Soft Extremity: Normal Inspection, Non Tender, No Calf Tenderness, Swelling (Left leg swelling has decreased since admission) Neurologic/Psychiatric: Alert, Oriented x3, No Motor/Sensory Deficits, Normal Mood/Affect Skin: Normal Color (Both legs now equal in color), Warm/Dry Results/Procedures Lab Laboratory Tests 03/24/22 06:05 Patient resulted labs reviewed. Radiology Date of Exam:03/24/22 CHEST 1 VIEW, AP/PA ONLY INDICATION: Pneumonia. COMPARISON: 02/20/2022. TECHNIQUE: Single radiograph of the chest dated 03/24/2022 FINDINGS: Left IJ central venous catheter is stable. 2 right-sided chest tubes are again identified. The cardiac silhouette is unchanged. No significant pulmonary vascular congestion. Soft tissue gas within the right chest is again identified. Linear interstitial opacities within the left lung base are again identified and stable. Right basilar pleural-parenchymal opacity is again seen, appearing similar to the prior examination with potential elevation of the right hemidiaphragm. No pneumothorax. No acute osseous abnormality. IMPRESSION: Stable appearing examination with small right basilar pleural-parenchymal opacity and elevation right hemidiaphragm with mild left basilar atelectasis. Unchanged lines and tubes without adverse change. Dictated by: Dictated on workstation # [id number] Dict: 03/24/2219 Trans: 03/24/22 1031 [id number] Interpreted by: SUDARSHAN ROBINS MD Electronically signed by: SUDARSHAN ROBINS MD 03/24/22 1031 Meds Med list provides further details Lactulose, polyethylene glycol, senna for bowel regularity Enoxaparin sodium for DVT Ondansetron for nausea Doxazosin mesylate for hypertension as well as lisinopril Pantoprazole for GERD Vancomycin and meropenem for prophylactic treatment post VATS surgery and chest tube placement Hydromorphone, morphine sulfate, oxycodone for pain. Toradol discontinued Procedures VATS procedure and chest tube placement as described in HPI Assessment/Plan Assessment and Plan Assess & Plan/Chief Complaint Right lung hydropneumothorax - patient underwent VATS procedure and chest tube placement, followed by surgery. Placed on antibiotic prophylaxis with vancomycin and meropenem Left Leg DVT - lovenox and careful monitoring for improvement, worsening discomfort, or new onset SOB Post-op pain - hydromorphone, morphine, oxycodone. Toradol discontinued Post-op ileus - lactulose, polyethylene glycol, senna Hypertension - continue medical management Depression - continue medical management GERD - pantoprazole Nausea - ondansetron Clinical Quality Measures DVT/VTE Risk/Contraindication: VTE Addressed: Yes VTE Present on Admission: Yes LUCILA ZHAO DO 03/25/22 0510: Assessment/Plan Assessment and Plan Assess & Plan/Chief Complaint Dramatic improvement Continue IV antibiotics Pain control PT and OT Supervisory-Addendum Brief Verification & Attestation Participated in pt care: history, MDM, physical Personally performed: exam, history, MDM, supervision of care Care discussed with: Medical Student Procedures: n/a Results interpretation: Verified all documentation Verification and Attestation of Medical Student E/M Service A medical student performed and documented this service in my presence. I reviewed and verified all information documented by the medical student and made modifications to such information, when appropriate. I personally performed the physical exam and medical decision making. Lucila Zhao, Mar 25, 2022,05:09 BENJAMIN COTTER Mar 24, 2022 13:19 LUCILA ZHAO DO Mar 25, 2022 05:10
[2022-03-24] MEDS: RIVAROXABAN 15 MG TABLET (XARELTO) PO SCH (20:12)
[2022-03-24] MEDS: polyethylene glycoL POWDER 17 GM (MIRALAX) PACK PO SCH (20:12)
[2022-03-24] MEDS: doxAzosin 2 MG (CARDURA) TAB PO SCH (20:12)
[2022-03-25] VITALS (7 sets, daily range): BP systolic 113–136; BP diastolic 62–82
[2022-03-25] MEDS: MEROPENEM 1,000 MG in NS (IVPB) 100 ML IV SCH ×3 (02:00→18:03)
[2022-03-25] MEDS: RT-ALBUTEROL HFA 8.5 GM INHALER IH SCH ×6 (02:22→22:38)
[2022-03-25 04:41] LABS: POTASSIUM 4.4 MMOL/L (3.6-5.0)
[2022-03-25 04:43] LABS: CALCIUM 9.2 MG/DL (8.5-10.1)
[2022-03-25 04:44] LABS: TOTAL PROTEIN 6.7 GM/DL (6.4-8.2)
[2022-03-25 04:46] LABS: BILIRUBIN,TOTAL 0.5 MG/DL (0.1-1.0)
[2022-03-25 04:47] LABS: CREATININE SERUM 0.76 MG/DL (0.60-1.30)
[2022-03-25 04:50] LABS: MAGNESIUM 1.7 MG/DL (1.6-2.4)
[2022-03-25 05:03] LABS: BASOPHILS % (AUTO) 1 % (0-10); EOSINOPHILS # (AUTO) 0.1 10^3/uL (0.0-0.3); EOSINOPHILS % (AUTO) 1 % (0-10); HEMATOCRIT 25 % (35-52); HEMOGLOBIN 8.3 g/dL (11.5-16.0); LYMPHOCYTES % (AUTO) 23 % (12-44); MEAN CORPUSCULAR HEMOGLOBIN 35 pg (25-34); MEAN CORPUSCULAR HGB CONC 33 g/dL (32-36); MEAN CORPUSCULAR VOLUME 107 fL (80-99); MEAN PLATELET VOLUME 9.3 fL (9.0-12.2); MONOCYTES # (AUTO) 0.5 10^3/uL (0.0-1.0); MONOCYTES % (AUTO) 12 % (0-12); NEUTROPHILS # (AUTO) 2.7 10^3/uL (1.8-7.8); NEUTROPHILS % (AUTO) 62 % (42-75); PLATELET COUNT 226 10^3/uL (130-400); WHITE BLOOD COUNT 4.3 10^3/uL (4.3-11.0)
[2022-03-25] MEDS: PANTOPRAZOLE 40 MG (PROTONIX) TAB PO SCH (06:10)
[2022-03-25] MEDS: SENNA W/DOCUSATE (SENOKOT S) TABLET PO SCH ×2 (08:06→19:58)
[2022-03-25] MEDS: buPROPion SR 150 MG (WELLBUTRIN SR) TAB PO SCH ×2 (08:06→19:57)
[2022-03-25] MEDS: DOCUSATE SODIUM 100 MG (COLACE) CAP PO SCH ×2 (08:06→19:57)
[2022-03-25] MEDS: ZIPRASIDONE 20 MG (GEODON) CAP PO SCH ×2 (08:07→18:04)
[2022-03-25] MEDS: lisINopril 40 MG (PRINIVIL) TABLET PO SCH (08:07)
[2022-03-25] MEDS: SENNOSIDES 8.6 MG (SENOKOT) TAB PO SCH ×2 (08:07→19:58)
[2022-03-25] MEDS: LORATADINE (CLARITIN) 10 MG TAB PO SCH (08:07)
[2022-03-25] MEDS: LACTULOSE SYRUP 10GM/15ML (ENULOSE) 30ML UDC PO SCH ×3 (08:07→19:57)
[2022-03-25] MEDS: RIVAROXABAN 15 MG TABLET (XARELTO) PO SCH ×2 (08:14→19:57)
--- NOTE | 2022-03-25 09:06 | Progress Note - Surgery ---
DOROTHY SMALL 03/25/2206: Subjective Date Seen by a Provider: Mar 25, 2022 Time Seen by a Provider: 09:01 Subjective/Events-last exam Patient being seen in follow up for VATS surgery: Patient resting comfortably in bed. States she feels improved today, compared to yesterday. Is not ready to go home yet. Having pain in right arm/back from chest tubes. Patient also having some blistering around chest tubes. 50ml drainage from yesterday. Larger tube appears to have some congealed blood, potentially obstructing drainage. Patient able to go to the bathroom okay. States working with PT and using IS. No other complaints today. CXR from today appears to show improvement in RLL in comparison to yesterday. ~50ml of drainage from chest tubes. Review of Systems General: No Chills HEENT: No Head Aches, No Visual Changes Pulmonary: No Dyspnea; Cough Cardiovascular: No: Chest Pain, Palpitations Gastrointestinal: No: Nausea, Vomiting Genitourinary: No Incontinence, No Hematuria Musculoskeletal: other (R arm and radiates to back of shoulder/ rib cage) Objective Exam Vital Signs Date Time Temp Pulse Resp B/P (MAP) Pulse Ox O2 Delivery O2 Flow Rate FiO2 03/25/22 08:03 36.3 103 18 136/82 (100) 95 Nasal Cannula 3.00 03/25/22 06:51 98 Nasal Cannula 2.00 03/25/22 04:12 36.5 100 18 114/62 (79) 94 Nasal Cannula 3.00 03/25/22 02:23 96 Nasal Cannula 2.00 03/25/22 00:20 36.6 97 20 135/79 (97) 96 Nasal Cannula 3.00 03/24/22 22:10 95 Nasal Cannula 2.00 03/24/22 20:00 Nasal Cannula 2.00 03/24/22 19:37 36.2 109 20 137/87 (104) 96 Nasal Cannula 2.00 03/24/22 18:58 94 2.00 03/24/22 15:36 36.5 99 18 120/78 (92) 99 Nasal Cannula 2.00 03/24/22 14:58 95 Nasal Cannula 2.00 03/24/22 11:43 36.6 101 18 115/64 (81) 95 Nasal Cannula 2.00 03/24/22 10:48 96 Nasal Cannula 2.00 I & O 03/25/22 07:00 Intake Total 2100 ml Output Total 3 ml Balance 2097 ml Capillary Refill : Less Than 3 Seconds General Appearance: No Apparent Distress, WD/WN, Obese HEENT: PERRL/EOMI Neck: Normal Inspection, Non Tender Respiratory: Chest Non Tender, No Accessory Muscle Use, No Respiratory Distress, Other (CTA on left side, RUL moving air well, RLL has minimal air movement) Cardiovascular: Regular Rate, Rhythm (transient tachcardia ), No Murmur Peripheral Pulses: 2+ Radial Pulses (R), 2+ Radial Pulses (L) Gastrointestinal: non tender, soft Extremity: Non Tender, No Calf Tenderness, Swelling (LLE markedly ededamous compared to RLE, non-pitting. Known DVT) Neurologic/Psychiatric: Alert, Oriented x3, Normal Mood/Affect Skin: Normal Color, Warm/Dry Lymphatic: No Adenopathy Results Lab Laboratory Tests 03/25/22 04:05: Sodium Level 137, Potassium Level 4.4, Chloride Level 101, Carbon Dioxide Level 25, Anion Gap 11, Blood Urea Nitrogen 7, Creatinine 0.76, Estimat Glomerular Filtration Rate 103, BUN/Creatinine Ratio 9, Glucose Level 105, Calcium Level 9.2, Corrected Calcium 10.0, Magnesium Level 1.7, Total Bilirubin 0.5, Aspartate Amino Transf (AST/SGOT) 27, Alanine Aminotransferase (ALT/SGPT) 68H, Alkaline Phosphatase 232H, Total Protein 6.7, Albumin 3.0L 03/25/22 04:50: White Blood Count 4.3, Red Blood Count 2.37L, Hemoglobin 8.3L, Hematocrit 25L, Mean Corpuscular Volume 107H, Mean Corpuscular Hemoglobin 35H, Mean Corpuscular Hemoglobin Concent 33, Red Cell Distribution Width 13.5, Platelet Count 226, Mean Platelet Volume 9.3, Immature Granulocyte % (Auto) 1, Neutrophils (%) (Auto) 62, Lymphocytes (%) (Auto) 23, Monocytes (%) (Auto) 12, Eosinophils (%) (Auto) 1, Basophils (%) (Auto) 1, Neutrophils # (Auto) 2.7, Lymphocytes # (Auto) 1.0, Monocytes # (Auto) 0.5, Eosinophils # (Auto) 0.1, Basophils # (Auto) 0.0, Immature Granulocyte # (Auto) 0.0 Microbiology 03/21/22 Gram Stain - Final, Resulted 03/21/22 Anaerobic Culture - Preliminary, Resulted No anaerobes isolated 03/21/22 Surgical Culture - Final, Resulted No growth 03/21/22 Fungal Culture 1 - Preliminary, Resulted 03/18/22 Blood Culture - Final, Complete No growth Assessment/Plan Assessment/Plan Assessment/Plan S/P Right VATS with Decortication - POD#4 Left leg DVT Venous insufficiency Bronchitis Recurrent pneumonia Immunosuppressed on Hydroxyurea treatment Chronic Diarrhea Plan Pt to continue ambulation, PT/OT, IS Currently 2L O2 NC, continue to wean as tolerated SPO2 >92% IV Vanc + Artem, last dose today Xarelto 15mg BID Q21 day for DVT tx Repeat CXR tomorrow AM Continue to monitor Blistering around chest tubes likely 2/2 rxn to adhesive bandaging. At this time sealing tubes is more important. Because tubing keeps congealing, going to use two atriums to see which tube is draining. Will remove the tube that is not draining, possibly tomorrow vs monday. Clinical Quality Measures DVT/VTE Risk/Contraindication: VTE Addressed: Yes VTE Present on Admission: Yes TINO CHRISTIANSON DO 03/25/22 1208: Subjective Subjective/Events-last exam Patient pain controlled. Still with serosanguineous drainage from chest tubes. Patient chest x-ray notes no change from yesterday. Tolerating diet. Denies nausea vomiting fever sweats chills shortness of breath or chest pain. Objective Exam General Appearance: No Apparent Distress, WD/WN HEENT: PERRL/EOMI, Normal ENT Inspection Neck: Normal Inspection, Non Tender Respiratory: Chest Non Tender, No Accessory Muscle Use, No Respiratory Distress, Other (CTA on left side, RUL moving air well, RLL has minimal air movement) Cardiovascular: Regular Rate, Rhythm, No JVD Gastrointestinal: non tender, soft Extremity: Non Tender, No Calf Tenderness Neurologic/Psychiatric: Alert, Oriented x3, Normal Mood/Affect Skin: Normal Color, Warm/Dry Lymphatic: No Adenopathy Assessment/Plan Assessment/Plan Assessment/Plan S/P Right VATS with Decortication - POD#4 Left leg DVT Venous insufficiency Bronchitis Recurrent pneumonia Immunosuppressed on Hydroxyurea treatment Chronic Diarrhea Plan Pt to continue ambulation, PT/OT, IS Currently 2L O2 NC, continue to wean as tolerated SPO2 >92% IV Vanc + Artem, last dose today -extended Xarelto 15mg BID Q21 day for DVT tx Repeat CXR tomorrow AM Continue to monitor Blistering around chest tubes likely 2/2 rxn to adhesive bandaging. At this time sealing tubes is more important. Because tubing keeps congealing, going to use two atriums to see which tube is draining. Will remove the tube that is not draining, possibly tomorrow vs monday. Supervisory-Addendum Brief Verification & Attestation Participated in pt care: history, MDM, physical Personally performed: exam, history, MDM, supervision of care Care discussed with: Medical Student Procedures: n/a Results interpretation: Verified all documentation Verification and Attestation of Medical Student E/M Service A medical student performed and documented this service in my presence. I reviewed and verified all information documented by the medical student and made modifications to such information, when appropriate. I personally performed the physical exam and medical decision making. Tino Christianson, Mar 25, 2022,12:08 DOROTHY SMALL Mar 25, 2022 09:06 TINO CHRISTIANSON DO Mar 25, 2022 12:08
--- NOTE | 2022-03-25 09:10 | Diagnostic Imaging Report ---
INDICATION: Chest tubes FINDINGS: Left IJ catheter at the lower SVC stable. Elevated right diaphragm with basilar consolidation and likely subpulmonic fluid unchanged. A tortuous course of the upper right thoracostomy tube unchanged. There is no pneumothorax. Small amount of right axillary and chest wall soft tissue gas stable. Subsegmental discoid atelectasis left base stable. IMPRESSION: 1. No significant change in volume loss pleural-parenchymal opacities and soft tissue gas as well as support apparatus. 2. No pneumothorax Dictated by: Dictated on workstation # [id number]
--- NOTE | 2022-03-25 10:52 | Occupational Ther Daily Note ---
OT Current Status-Daily Note Subjective Pt in recliner, alert. Pt agrees to therapy. c/o no pain. Pt wanted sponge bath but nursing came in for wound care. Nursing agreed to send tech in to help her with sponge bath. Mental Status/Objective Patient Orientation: Person, Place, Time, Situation Attachments: Chest Tube, IV, Oxygen ADL-Treatment Pt declined oral hygiene at sink. Oral hygiene performed in recliner by self after set up. Pt requested sponge bath but nursing came in for wound care. Tech will assist with sponge bath when wound care is complete. Pt in recliner at end of session. Call light/phone in reach. All needs met in room. Therapy Code Descriptions/Definitions Functional [place] Measure: 0=Not Assessed/NA 4=Minimal Assistance 1=Total Assistance 5=Supervision or Setup 2=Maximal Assistance 6=Modified [place] 3=Moderate Assistance 7=Complete IndependenceSCALE: Activities may be completed with or without assistive devices. 6-Ectebtfjqf-dfmtgne completes the activity by him/herself with no assistance from a helper. 5-Set-up or Clean-up Assistance-helper sets up or cleans up; patient completes activity. [place] assists only prior to or following the activity. 4-Supervision or Touching Assistance-helper provides verbal cues and/or touching/steadying and/or contact guard assistance as patient completes activity. Assistance may be provided throughout the activity or intermittently. 3-Partial/Moderate Assistance-helper does LESS THAN HALF the effort. [place] lifts, holds or supports trunk or limbs, but provides less than half the effort. 2-Substantial/Maximal Assistance-helper does MORE THAN HALF the effort. [place] lifts or holds trunk or limbs and provides more than half the effort. 4-Egfmtlion-wipvih does ALL the effort. Patient does none of the effort to complete the activity. Or, the assistance of 2 or more helpers is required for the patient to complete the activity. If activity was not attempted, code reason: 7-Patient Refused. 9-Not Applicable-not attempted and the patient did not perform the activity before the current illness, exacerbation or injury. 10-Not Attempted due to Environmental Limitations-(lack of equipment, weather restraints, etc.). 88-Not Attempted due to Medical Conditions or Safety Concerns. Oral Hygiene (QC): 5 OT Senior Care Goals Senior Care Goals Time Frame: Apr 08, 2022 Oral Hygiene (QC): 6 Toileting Hygiene (QC): 6 Shower/Bathe Self (QC): 5 Upper Body Dressing (QC): 6 Lower Body Dressing (QC): 6 On/Off Footwear (QC): 6 Additional Goals: 1-Demonstrate ADL Tasks, 2-Verbalize Understanding, 3- ImproveStrength/[place] 1=Demonstrate adherence to instructed precautions during ADL tasks. 2=Patient will verbalize/demonstrate understanding of assistive devices/modifications for ADL. 3=Patient will improve strength/tolerance for activity to enable patient to perform ADL's. OT Education/Plan Problem List/Assessment Assessment: Decreased Activ Tolerance, Impaired Self-Care Skills Discharge Recommendations Plan/Recommendations: Continue POC Treatment Plan/Plan of Care Patient would benefit from OT for education, treatment and training to promote independence in ADL's, mobility, safety and/or upper extremity function for ADL's. Plan of Care: ADL Retraining, Functional Mobility, Group Exercise/Act as Ind, UE Funct Exercise/Act Treatment Duration: Apr 08, 2022 Frequency: 3 times per week (3-5x/week) Estimated Hrs Per Day: .25 hour per day Agreement: Yes Rehab Potential: Fair Time Start Time: 10:34 Stop Time: 10:46 DATE: Mar 25, 2022 Total Time Billed (hr/min): 12 Billed Treatment Time 1 visit ADL (12 min) JENN PATEL Mar 25, 2022 10:52
[2022-03-25] MEDS: VANCOMYCIN 1250 MG/NS 250 ML IVPB IV SCH ×4 (11:26→22:38)
--- NOTE | 2022-03-25 11:27 | Progress Note - Hospitalist ---
Subjective HPI/CC On Admission Date Seen by Provider: Mar 25, 2022 CC: Right sided empyema HPI: This is a 36yoWF clinic patient of [facility] who presented to the Er with worsened right sided chest pain and was found to have right sided empyema with c avitary lesion. Dr Morales evaluated her CT scan and is planning on chest tube/VATS procedure. IV antibiotics were broadened out by EICU after I discussed the case with Dr Brandt. TB r/o so she was placed in isolation. I also spoke to Dr Morales in-depth along with Gregory Durbin in ER. Currently patient is still having pleurisy and I ordered Toradol. I have reviewed [facility] last visit. Patient was placed on Bactrim for Strep A pharyngitis on 03/07/22. PMH: ADHD Anxiety HTN Bipolar 2 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 HLP GERD Subjective/Events-last exam Pt is doing well No issues Labs reviewed No increased pain Ambulating around pretty well Chest tube management per general surgery Review of Systems General: Fatigue, Malaise Objective Exam Vital Signs Vital Signs Date Time Temp Pulse Resp B/P (MAP) Pulse Ox O2 Delivery O2 Flow Rate FiO2 03/25/22 19:32 95 Nasal Cannula 2.00 03/25/22 19:00 36.6 110 18 135/79 (97) Capillary Refill : Less Than 3 Seconds General Appearance: No Apparent Distress, WD/WN, Chronically ill Respiratory: Lungs Clear Cardiovascular: Regular Rate, Rhythm Neurologic/Psychiatric: Alert, Oriented x3, No Motor/Sensory Deficits, Normal Mood/Affect Results/Procedures Lab Laboratory Tests 03/25/22 04:05 03/25/22 04:50 Patient resulted labs reviewed. Procedures VATS procedure and chest tube placement as described in HPI Assessment/Plan Assessment and Plan Assess & Plan/Chief Complaint Dramatic improvement Continue IV antibiotics Pain control PT and OT Critical Care Critically Ill Patient Clinical Quality Measures DVT/VTE Risk/Contraindication: VTE Addressed: Yes VTE Present on Admission: Yes MARGOTH ZHAO DO Mar 25, 2022 11:26
--- NOTE | 2022-03-25 14:15 | Physical Therapy Daily Note ---
PT Daily Note-Current Subjective Patient sitting in chair upon PT arrival, agreeable to treatment. Patient reports pain at 8/10 in right shoulder and chest with coughing. Pain Section J - Health Conditions 1. Rarely or not at all 2. Occasionally 3. Frequently 4. Almost constantly 8. Unable to answer Pain Effect on Sleep: 1 Pain Interference with Therapy: 1 Pain Interference w/Day-to-Day: 1 Mental Status Patient Orientation: Person, Place, Time, Situation Transfers SCALE: Activities may be completed with or without assistive devices. 3-Fpiffegtpp-cvnazts completes the activity by him/herself with no assistance from a helper. 5-Set-up or Clean-up Assistance-helper sets up or cleans up; patient completes activity. [place] assists only prior to or following the activity. 4-Supervision or Touching Assistance-helper provides verbal cues and/or touching/steadying and/or contact guard assistance as patient completes activity. Assistance may be provided throughout the activity or intermittently. 3-Partial/Moderate Assistance-helper does LESS THAN HALF the effort. [place] lifts, holds or supports trunk or limbs, but provides less than half the effort. 2-Substantial/Maximal Assistance-helper does MORE THAN HALF the effort. [place] lifts or holds trunk or limbs and provides more than half the effort. 6-Adbxxbrrs-rfhfkf does ALL the effort. Patient does none of the effort to complete the activity. Or, the assistance of 2 or more helpers is required for the patient to complete the activity. If activity was not attempted, code reason: 7-Patient Refused. 9-Not Applicable-not attempted and the patient did not perform the activity before the current illness, exacerbation or injury. 10-Not Attempted due to Environmental Limitations-(lack of equipment, weather restraints, etc.). 88-Not Attempted due to Medical Conditions or Safety Concerns. Sit to Stand (QC): 6 Chair/Kpa-sd-Rvual Xfer(QC): 6 Weight Bearing Right Lower Extremity: Right Full Weight Bearing Left Lower Extremity: Left Full Weight Bearing Gait Training Does the Patient Walk?: Yes Distance: 160 feet Walk 10 feet (QC): 4 Walk 50 ft with 2 Turns(QC): 4 Walk 150 ft (QC): 4 Gait Persons Needed: 1 Gait Assistive Device: FWW Patient reports she recently had a second chest tube placed. She used the FWW for stability and to hold the 2 chest tubes. Requires SBA due to chest tubes and O2, however sans attachments would most likely be independent with gait up to and beyond 150 feet. Exercises Supine Ex: Ankle pumps, Quad Set, Glut sets Supine Reps: 20 Assessment Current Status: Fair Progress Patient tolerated treatment fair. Patient performs therapeutic exercise as listed above in the recliner. She performs all observed transfers with [place]. Patient ambulates 160 feet with FWW, with SBA due to 2 L O2 and 2 chest tubes. Patient ambulates with forward trunk, rounded shoulders, and shortened stride length. Patient in chair post treatment with all needs met, nursing notified, call light in reach. PT Nursing Home Goals Account Services Specialist Goals PT Account Services Specialist Goals Time Frame: Mar 30, 2022 Roll Left & Right (QC): 6 Sit to Lying (QC): 6 Lying-Sitting on Side/Bed(QC): 6 Sit to Stand (QC): 6 Chair/Ngz-hv-Prndv Xfer(QC): 6 Toilet Transfer (QC): 6 Car Transfer (QC): 6 Does the Patient Walk: Yes Walk 10 feet (QC): 6 Walk 50ft with 2 Turns (QC): 6 Walk 150 ft (QC): 6 Walking 10ft on Uneven Surface: 6 1 Step (curb) (QC): 6 4 Steps (QC): 6 12 Steps (QC): 6 Picking up an Object (QC): 6 Does the Pt use WC or Scooter?: No Wheel 50 feet with 2 turns (QC: 9 Wheel 150 feet: 9 PT Plan Treatment/Plan Treatment Plan: Continue Plan of Care Treatment Plan: Bed Mobility, Education, Functional Activity Sugey, Functional Strength, Gait, Safety, Therapeutic Exercise, Transfers Treatment Duration: Mar 30, 2022 Frequency: 6 times per week Estimated Hrs Per Day: .25 hour per day Patient and/or Family Agrees t: Yes Safety Risks/Education Patient Education: Gait Training, Transfer Techniques Teaching Recipient: Patient Teaching Methods: Demonstration, Discussion Response to Teaching: Verbalize Understanding, Return Demonstration Time Time In: 1320 Time Out: 1345 DATE: Mar 25, 2022 Total Billed Treatment Time: 25 Total Billed Treatment Visit, Gait, Ex MARY BUENO PT Mar 25, 2022 14:15
[2022-03-25] MEDS: doxAzosin 2 MG (CARDURA) TAB PO SCH (19:57)
[2022-03-25] MEDS: polyethylene glycoL POWDER 17 GM (MIRALAX) PACK PO SCH (19:58)
[2022-03-26] VITALS (9 sets, daily range): BP systolic 115–141; BP diastolic 68–88
[2022-03-26] MEDS: MEROPENEM 1,000 MG in NS (IVPB) 100 ML IV SCH ×3 (01:44→17:38)
[2022-03-26] MEDS: RT-ALBUTEROL HFA 8.5 GM INHALER IH SCH ×5 (02:22→21:25)
[2022-03-26] MEDS: PANTOPRAZOLE 40 MG (PROTONIX) TAB PO SCH (06:02)
--- NOTE | 2022-03-26 06:05 | Progress Note - Surgery ---
CHELE VERDIN 03/26/22 0605: Subjective Date Seen by a Provider: Mar 26, 2022 Time Seen by a Provider: 06:00 Subjective/Events-last exam Patient is sitting up in bed this morning, in no acute distress She feels well this morning, only complaint of pain is her right shoulder and pain at her tube insertions Both atriums are now in place. Atrium draining left tube has immeasurable amount of drainage. Atrium draining right tube has 5 ml. Collecting since approximately 2 p.m yesterday. Larger tube still has some residual congealed blood. She was able to walk around with PT yesterday, did not complain of SOB Denies any fever, chills, and nausea Is using her IS No other complaints, just wants to have tubes removed when possible. Objective Exam Vital Signs Date Time Temp Pulse Resp B/P (MAP) Pulse Ox O2 Delivery O2 Flow Rate FiO2 03/26/22 04:05 36.0 87 16 115/81 (92) 95 Nasal Cannula 2.00 03/26/22 02:22 96 Nasal Cannula 2.00 03/26/22 00:00 36.5 87 16 129/83 (98) 97 Nasal Cannula 2.00 03/25/22 22:38 96 Nasal Cannula 2.00 03/25/22 20:04 Nasal Cannula 2.00 03/25/22 19:32 95 Nasal Cannula 2.00 03/25/22 19:00 36.6 110 18 135/79 (97) 98 Nasal Cannula 2.00 2.00 03/25/22 15:04 36.5 100 20 118/66 (83) 98 Nasal Cannula 2.00 2.00 03/25/22 14:28 97 Nasal Cannula 2.00 03/25/22 11:55 36.5 103 18 113/72 (86) 95 Room Air 03/25/22 10:25 95 Nasal Cannula 2.00 03/25/22 08:03 36.3 103 18 136/82 (100) 95 Nasal Cannula 3.00 03/25/22 08:00 Nasal Cannula 2.00 03/25/22 06:51 98 Nasal Cannula 2.00 I & O 03/26/22 07:00 Intake Total 2322.5 ml Balance 2322.5 ml Capillary Refill : Less Than 3 Seconds General Appearance: No Apparent Distress, WD/WN, Chronically ill HEENT: PERRL/EOMI, Normal ENT Inspection Neck: Normal Inspection, Non Tender Respiratory: Chest Non Tender, Lungs Clear Cardiovascular: Regular Rate, Rhythm, No Edema, No Gallop Peripheral Pulses: 2+ Radial Pulses (R), 2+ Radial Pulses (L) Gastrointestinal: non tender, soft Extremity: Non Tender, No Calf Tenderness, Swelling (Left calf still swollen compared to right. Non tender to palpation) Neurologic/Psychiatric: Alert, Oriented x3, No Motor/Sensory Deficits, Normal Mood/Affect Skin: Normal Color, Warm/Dry Lymphatic: No Adenopathy Results Lab Microbiology 03/21/22 Gram Stain - Final, Resulted 03/21/22 Anaerobic Culture - Final, Resulted No anaerobes isolated 03/21/22 Surgical Culture - Final, Resulted No growth 03/21/22 Fungal Culture 1 - Preliminary, Resulted 03/18/22 Blood Culture - Final, Complete No growth Assessment/Plan Assessment/Plan Assessment/Plan S/P Right VATS with Decortication - POD#5 Left leg DVT Venous insufficiency Bronchitis Recurrent pneumonia Immunosuppressed on Hydroxyurea treatment Chronic Diarrhea-stopped taking lactulose and PEG Plan Pt to continue ambulation, PT/OT, IS Currently 2L O2 NC, continue to wean as tolerated SPO2 >92%-still on 2 L NC, with a SPO2 of 95% IV Vanc + Artem, both currently running Continue Xarelto 15mg BID Q21 day for DVT tx Continue to monitor Both atriums in place at this time. Only one atrium has measurable amount of drainage at this time. Will remove the tube that is not draining. Clinical Quality Measures DVT/VTE Risk/Contraindication: VTE Addressed: Yes VTE Present on Admission: Yes EDGAR WEBER 03/26/22 0751: TINO CHRISTIANSON DO 03/26/22 1554: Subjective Subjective/Events-last exam Feeling good today. Pain controlled. Right shoulder pain still. Using IS. Chest x ray reviewed and no significant change. No shortness of breath. Objective Exam General Appearance: No Apparent Distress, Chronically ill, Obese HEENT: PERRL/EOMI, Normal ENT Inspection Neck: Normal Inspection, Non Tender Respiratory: Chest Non Tender, No Accessory Muscle Use, No Respiratory Distress, Other (right chest tubes ) Cardiovascular: Regular Rate, Rhythm, No JVD Gastrointestinal: non tender, soft Extremity: Non Tender, No Calf Tenderness Neurologic/Psychiatric: Alert, Oriented x3 Skin: Normal Color, Warm/Dry Lymphatic: No Adenopathy Assessment/Plan Assessment/Plan Assessment/Plan S/P Right VATS with Decortication - POD#5 Left leg DVT Venous insufficiency Bronchitis Recurrent pneumonia Immunosuppressed on Hydroxyurea treatment Chronic Diarrhea-stopped taking lactulose and PEG Plan Pt to continue ambulation, PT/OT, IS Currently 2L O2 NC, continue to wean as tolerated SPO2 >92%-still on 2 L NC, with a SPO2 of 95% IV Vanc + Artem, both currently running Continue Xarelto 15mg BID Q21 day for DVT tx Both atriums in place at this time. Only one atrium has measurable amount of drainage at this time. Will remove the tube that is not draining. Chest x ray in am, likely remove other chest tube tomorrow or Monday. Supervisory-Addendum Brief Verification & Attestation Participated in pt care: history, MDM, physical Personally performed: exam, history, MDM, supervision of care Care discussed with: Medical Student Procedures: n/a Results interpretation: Verified all documentation Verification and Attestation of Medical Student E/M Service A medical student performed and documented this service in my presence. I reviewed and verified all information documented by the medical student and made modifications to such information, when appropriate. I personally performed the physical exam and medical decision making. Tino Christianson, Mar 26, 2022,15:53 CHELE VERDIN Mar 26, 2022 06:05 EDGAR WEBER Mar 26, 2022 07:51 TINO CHRISTIANSON DO Mar 26, 2022 15:54
[2022-03-26 06:52] LABS: BASOPHILS % (AUTO) 1 % (0-10); EOSINOPHILS # (AUTO) 0.1 10^3/uL (0.0-0.3); EOSINOPHILS % (AUTO) 2 % (0-10); HEMATOCRIT 27 % (35-52); HEMOGLOBIN 8.6 g/dL (11.5-16.0); LYMPHOCYTES # (AUTO) 1.2 10^3/uL (1.0-4.0); LYMPHOCYTES % (AUTO) 28 % (12-44); MEAN CORPUSCULAR HEMOGLOBIN 35 pg (25-34); MEAN CORPUSCULAR HGB CONC 33 g/dL (32-36); MEAN CORPUSCULAR VOLUME 108 fL (80-99); MEAN PLATELET VOLUME 9.4 fL (9.0-12.2); MONOCYTES # (AUTO) 0.5 10^3/uL (0.0-1.0); MONOCYTES % (AUTO) 13 % (0-12); NEUTROPHILS # (AUTO) 2.5 10^3/uL (1.8-7.8); NEUTROPHILS % (AUTO) 57 % (42-75); PLATELET COUNT 248 10^3/uL (130-400); WHITE BLOOD COUNT 4.3 10^3/uL (4.3-11.0)
[2022-03-26 07:09] LABS: ALBUMIN 3.1 GM/DL (3.2-4.5); BILIRUBIN,TOTAL 0.4 MG/DL (0.1-1.0); CALCIUM 9.6 MG/DL (8.5-10.1); CREATININE SERUM 0.74 MG/DL (0.60-1.30); MAGNESIUM 1.7 MG/DL (1.6-2.4); POTASSIUM 4.1 MMOL/L (3.6-5.0)
--- NOTE | 2022-03-26 08:42 | Diagnostic Imaging Report ---
EXAMINATION: Chest 1 view HISTORY: Chest tube COMPARISON: 03/25/2022 FINDINGS: There are two chest tubes on the right. No pneumothorax. There is a small right effusions with overlying atelectasis, unchanged. There is mild left base atelectasis. Heart size is normal. Left internal jugular central venous catheter tip terminates in the superior vena cava. IMPRESSION: 1. Stable small right effusion and bibasilar atelectasis. Dictated by: Dictated on workstation # [id number]
[2022-03-26] MEDS: LACTULOSE SYRUP 10GM/15ML (ENULOSE) 30ML UDC PO SCH ×2 (09:06→20:37)
[2022-03-26] MEDS: SENNOSIDES 8.6 MG (SENOKOT) TAB PO SCH ×2 (09:07→20:37)
[2022-03-26] MEDS: SENNA W/DOCUSATE (SENOKOT S) TABLET PO SCH ×2 (09:07→20:37)
[2022-03-26] MEDS: buPROPion SR 150 MG (WELLBUTRIN SR) TAB PO SCH ×2 (09:07→20:35)
[2022-03-26] MEDS: ZIPRASIDONE 20 MG (GEODON) CAP PO SCH ×2 (09:07→17:39)
[2022-03-26] MEDS: RIVAROXABAN 15 MG TABLET (XARELTO) PO SCH ×2 (09:08→20:35)
[2022-03-26] MEDS: DOCUSATE SODIUM 100 MG (COLACE) CAP PO SCH ×2 (09:08→20:37)
[2022-03-26] MEDS: LORATADINE (CLARITIN) 10 MG TAB PO SCH (09:08)
[2022-03-26] MEDS: lisINopril 40 MG (PRINIVIL) TABLET PO SCH (09:08)
[2022-03-26] MEDS: ACETAMINOPHEN 325 MG TABLET PO PRN (09:08)
--- NOTE | 2022-03-26 10:46 | Progress Note - Hospitalist ---
Subjective HPI/CC On Admission Date Seen by Provider: Mar 26, 2022 Time Seen by Provider: 10:00 CC: Right sided empyema HPI: This is a 36yoWF clinic patient of [facility] who presented to the Er with worsened right sided chest pain and was found to have right sided empyema with cavitary lesion. Dr Morales evaluated her CT scan and is planning on chest tube/VATS procedure. IV antibiotics were broadened out by EICU after I discussed the case with Dr Brandt. TB r/o so she was placed in isolation. I also spoke to Dr Morales in-depth along with Gregory Durbin in ER. Currently patient is still having pleurisy and I ordered Toradol. I have reviewed [facility] last visit. Patient was placed on Bactrim for Strep A pharyngitis on 03/07/22. PMH: ADHD Anxiety HTN Bipolar 2 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 HLP GERD Subjective/Events-last exam Patient reports feeling better still having chest pain but it is diminishing. She denies any shortness of breath at rest. There has been minimal drainage over the last 24 hours from her 2 chest tubes now 5 days post decortication right pleural space for empyema. She denies night sweats chills or fever. Objective Exam Vital Signs Vital Signs Date Time Temp Pulse Resp B/P (MAP) Pulse Ox O2 Delivery O2 Flow Rate FiO2 03/26/22 07:17 36.2 100 20 134/78 (96) 94 Nasal Cannula 1.00 Capillary Refill : Less Than 3 Seconds General Appearance: No Apparent Distress, Chronically ill, Obese Respiratory: No Accessory Muscle Use, No Respiratory Distress, Other (Decreased breath sounds right posteriorly with 2 chest tubes placed small blister adjacent dressing with no erythema clear fluid. Left side clear) Cardiovascular: Regular Rate, Rhythm, No Edema, No Gallop, No JVD, No Murmur, Normal Peripheral Pulses Gastrointestinal: Normal Bowel Sounds, No Organomegaly, No Pulsatile Mass, Non Tender, Soft Extremity: Other ( 1+ edema left leg all the way up none on the right no erythema no ulceration.) Results/Procedures Lab Laboratory Tests 03/26/22 06:08 Patient resulted labs reviewed. Procedures VATS procedure and chest tube placement as described in HPI Assessment/Plan Assessment and Plan Assess & Plan/Chief Complaint S/P Right VATS with Decortication - POD#5 Clinically improving afebrile minimal chest tube drainage reported over the past 24 hours management deferred to surgery. Left leg DVT Venous insufficiency Bronchitis Recurrent pneumonia Immunosuppressed on Hydroxyurea treatment Chronic Diarrhea Critical Care Critically Ill Patient Clinical Quality Measures DVT/VTE Risk/Contraindication: VTE Addressed: Yes VTE Present on Admission: Yes FERNANDO LLOYD MD Mar 26, 2022 10:45
--- NOTE | 2022-03-26 11:11 | Physical Therapy Daily Note ---
PT Daily Note-Current Subjective Pt is in the chair on arrival and agreeable to treatment. Pain Section J - Health Conditions 1. Rarely or not at all 2. Occasionally 3. Frequently 4. Almost constantly 8. Unable to answer Pain Effect on Sleep: 1 Pain Interference with Therapy: 1 Pain Interference w/Day-to-Day: 1 Mental Status Patient Orientation: Person, Place, Time, Situation Attachments: Chest Tube, Oxygen, IV Transfers SCALE: Activities may be completed with or without assistive devices. 9-Xirkyrszcb-gcmyisg completes the activity by him/herself with no assistance from a helper. 5-Set-up or Clean-up Assistance-helper sets up or cleans up; patient completes activity. [place] assists only prior to or following the activity. 4-Supervision or Touching Assistance-helper provides verbal cues and/or to uching/steadying and/or contact guard assistance as patient completes activity. Assistance may be provided throughout the activity or intermittently. 3-Partial/Moderate Assistance-helper does LESS THAN HALF the effort. [place] lifts, holds or supports trunk or limbs, but provides less than half the effort. 2-Substantial/Maximal Assistance-helper does MORE THAN HALF the effort. [place] lifts or holds trunk or limbs and provides more than half the effort. 5-Afmzwarss-fmmfqv does ALL the effort. Patient does none of the effort to complete the activity. Or, the assistance of 2 or more helpers is required for the patient to complete the activity. If activity was not attempted, code reason: 7-Patient Refused. 9-Not Applicable-not attempted and the patient did not perform the activity before the current illness, exacerbation or injury. 10-Not Attempted due to Environmental Limitations-(lack of equipment, weather restraints, etc.). 88-Not Attempted due to Medical Conditions or Safety Concerns. Sit to Stand (QC): 5 Weight Bearing Right Lower Extremity: Right Full Weight Bearing Left Lower Extremity: Left Full Weight Bearing Gait Training Does the Patient Walk?: Yes Distance: 160ft Gait Assistive Device: FWW Pt ambulated from her room to the double doors and back 2x. No dyspnea. Wheelchair Training Does the Pt Use a Wheelchair?: No Exercises Seated Therapy Exercises: LE Protocol Seated Reps: 15 Assessment Current Status: Good Progress Good safety with sit to stand and throughout gait. PT General Service Officer Goals General Service Officer Goals PT [facility] Goals Time Frame: Mar 30, 2022 Roll Left & Right (QC): 6 Sit to Lying (QC): 6 Lying-Sitting on Side/Bed(QC): 6 Sit to Stand (QC): 6 Chair/Ght-qh-Rekwb Xfer(QC): 6 Toilet Transfer (QC): 6 Car Transfer (QC): 6 Does the Patient Walk: Yes Walk 10 feet (QC): 6 Walk 50ft with 2 Turns (QC): 6 Walk 150 ft (QC): 6 Walking 10ft on Uneven Surface: 6 1 Step (curb) (QC): 6 4 Steps (QC): 6 12 Steps (QC): 6 Picking up an Object (QC): 6 Does the Pt use WC or Scooter?: No Wheel 50 feet with 2 turns (QC: 9 Wheel 150 feet: 9 PT Plan Treatment/Plan Treatment Plan: Continue Plan of Care Treatment Plan: Bed Mobility, Education, Functional Activity Sugey, Functional Strength, Gait, Safety, Therapeutic Exercise, Transfers Treatment Duration: Mar 30, 2022 Frequency: 6 times per week Estimated Hrs Per Day: .25 hour per day Patient and/or Family Agrees t: Yes Time Time In: 0950 Time Out: 1005 DATE: Mar 26, 2022 Total Billed Treatment Time: 15 Total Billed Treatment 1, gt 15 ANETA WIGGINS PT Mar 26, 2022 11:11
[2022-03-26] MEDS: VANCOMYCIN 1250 MG/NS 250 ML IVPB IV SCH ×4 (12:09→23:21)
[2022-03-26] MEDS ORDERED: RT-ALBUTEROL HFA 8.5 GM INHALER IH PRN (16:15)
[2022-03-26] MEDS: CATHETER FLUSH 10 ML SYR IV PRN (20:35)
[2022-03-26] MEDS: doxAzosin 2 MG (CARDURA) TAB PO SCH (20:35)
[2022-03-26] MEDS: polyethylene glycoL POWDER 17 GM (MIRALAX) PACK PO SCH (20:37)
[2022-03-27] MEDS: RT-ALBUTEROL HFA 8.5 GM INHALER IH SCH ×4 (02:12→20:49)
[2022-03-27] MEDS: MEROPENEM 1,000 MG in NS (IVPB) 100 ML IV SCH ×3 (02:12→19:03)
[2022-03-27 03:14] VITALS: BP 120/79
[2022-03-27] MEDS: PANTOPRAZOLE 40 MG (PROTONIX) TAB PO SCH (06:05)
[2022-03-27 06:23] LABS: BASOPHILS % (AUTO) 0 % (0-10); EOSINOPHILS # (AUTO) 0.1 10^3/uL (0.0-0.3); EOSINOPHILS % (AUTO) 2 % (0-10); HEMATOCRIT 26 % (35-52); HEMOGLOBIN 8.4 g/dL (11.5-16.0); LYMPHOCYTES # (AUTO) 1.1 10^3/uL (1.0-4.0); LYMPHOCYTES % (AUTO) 22 % (12-44); MEAN CORPUSCULAR HEMOGLOBIN 35 pg (25-34); MEAN CORPUSCULAR HGB CONC 33 g/dL (32-36); MEAN CORPUSCULAR VOLUME 107 fL (80-99); MEAN PLATELET VOLUME 9.2 fL (9.0-12.2); MONOCYTES # (AUTO) 0.5 10^3/uL (0.0-1.0); MONOCYTES % (AUTO) 11 % (0-12); NEUTROPHILS % (AUTO) 63 % (42-75); PLATELET COUNT 223 10^3/uL (130-400); WHITE BLOOD COUNT 4.7 10^3/uL (4.3-11.0)
--- NOTE | 2022-03-27 06:49 | Progress Note - Surgery ---
CHELE VERDIN 03/27/22 0648: Subjective Date Seen by a Provider: Mar 27, 2022 Time Seen by a Provider: 11:00 Subjective/Events-last exam Patient is sitting up in bed this morning, in no acute distress She feels well this morning, only complaint of pain is her right shoulder and pain at her tube insertions, but does feel better after removing one of tubes yesterday One Atrium in place, no new drainage since yesterday. Collecting since approximately 2 p.m 11- Larger tube still has some residual congealed blood. She was able to walk around with PT yesterday, did not complain of SOB Denies any fever, chills, and nausea Is using her IS No other complaints, just wants to have tubes removed when possible. Objective Exam Vital Signs Date Time Temp Pulse Resp B/P (MAP) Pulse Ox O2 Delivery O2 Flow Rate FiO2 03/27/22 03:14 36.1 97 18 120/79 (93) 94 Nasal Cannula 1.00 03/26/22 23:19 36.1 103 18 121/78 (92) 95 Nasal Cannula 1.00 03/26/22 21:25 Nasal Cannula 1.00 03/26/22 20:40 Nasal Cannula 1.00 03/26/22 20:30 36.6 99 20 140/73 (95) 97 Nasal Cannula 1.00 03/26/22 19:23 36.6 111 20 141/84 (103) 96 Nasal Cannula 1.00 03/26/22 15:55 36.3 95 97 24 03/26/22 15:35 36.3 95 20 131/88 (102) 97 Nasal Cannula 1.00 03/26/22 15:07 96 Nasal Cannula 1.00 03/26/22 11:18 36.2 101 20 132/68 (89) 96 Nasal Cannula 1.00 03/26/22 10:38 94 Nasal Cannula 1.00 03/26/22 08:00 Nasal Cannula 2.00 03/26/22 07:17 36.2 100 20 134/78 (96) 94 Nasal Cannula 1.00 I & O 03/27/22 07:00 Intake Total 3620 ml Output Total 10 ml Balance 3610 ml Capillary Refill : Less Than 3 Seconds General Appearance: No Apparent Distress, Chronically ill, Obese HEENT: PERRL/EOMI, Normal ENT Inspection Neck: Normal Inspection, Non Tender Respiratory: Chest Non Tender, No Accessory Muscle Use, No Respiratory Distress, Other (right chest tubes ) Cardiovascular: Regular Rate, Rhythm, No JVD Peripheral Pulses: 2+ Radial Pulses (R), 2+ Radial Pulses (L) Gastrointestinal: non tender, soft Extremity: Non Tender, No Calf Tenderness, Swelling (Left calf still swollen) Neurologic/Psychiatric: Alert, Oriented x3 Skin: Normal Color, Warm/Dry Lymphatic: No Adenopathy Results Lab Laboratory Tests 03/27/22 06:11: White Blood Count 4.7, Red Blood Count 2.42L, Hemoglobin 8.4L, Hematocrit 26L, Mean Corpuscular Volume 107H, Mean Corpuscular Hemoglobin 35H, Mean Corpuscular Hemoglobin Concent 33, Red Cell Distribution Width 13.8, Platelet Count 223, Mean Platelet Volume 9.2, Immature Granulocyte % (Auto) 1, Neutrophils (%) (Auto) 63, Lymphocytes (%) (Auto) 22, Monocytes (%) (Auto) 11, Eosinophils (%) (Auto) 2, Basophils (%) (Auto) 0, Neutrophils # (Auto) 3.0, Lymphocytes # (Auto) 1.1, Monocytes # (Auto) 0.5, Eosinophils # (Auto) 0.1, Basophils # (Auto) 0.0, Immature Granulocyte # (Auto) 0.1 Microbiology 03/21/22 Gram Stain - Final, Resulted 03/21/22 Anaerobic Culture - Final, Resulted No anaerobes isolated 03/21/22 Surgical Culture - Final, Resulted No growth 03/21/22 Fungal Culture 1 - Preliminary, Resulted 03/18/22 Blood Culture - Final, Complete No growth Assessment/Plan Assessment/Plan Assessment/Plan S/P Right VATS with Decortication - POD#6 Left leg DVT Venous insufficiency Bronchitis Recurrent pneumonia Immunosuppressed on Hydroxyurea treatment Chronic Diarrhea-stopped taking lactulose and PEG-still having Plan Pt to continue ambulation, PT/OT, IS Currently 1L O2 NC, continue to wean as tolerated SPO2 >92%-currently on 1 L NC, with a SPO2 of 94% IV Vanc + Artem, both currently running Continue Xarelto 15mg BID Q21 day for DVT tx On atrium in place at this time, no new drainage since yesterday. Consider tube removal based on x ray and output . Clinical Quality Measures DVT/VTE Risk/Contraindication: VTE Addressed: Yes VTE Present on Admission: Yes TINO CHRISTIANSON DO 03/27/22 1244: Subjective Subjective/Events-last exam Using incentive spirometer. Breathing better. Right shoulder feeling a little better after one chest tube removed yesterday. No shortness of breath. Denies n/v fever sweats chills shortness of breath or chest pain at this time. Objective Exam General Appearance: No Apparent Distress, Chronically ill, Obese HEENT: PERRL/EOMI, Normal ENT Inspection Neck: Normal Inspection, Non Tender Respiratory: Chest Non Tender, No Accessory Muscle Use, No Respiratory Distress, Other (right chest tube) Cardiovascular: Regular Rate, Rhythm, No JVD Gastrointestinal: non tender, soft Extremity: Non Tender, No Calf Tenderness, Swelling (Left calf still swollen) Neurologic/Psychiatric: Alert, Oriented x3 Skin: Normal Color, Warm/Dry Lymphatic: No Adenopathy Assessment/Plan Assessment/Plan Assessment/Plan S/P Right VATS with Decortication - POD#6 Left leg DVT Venous insufficiency Bronchitis Recurrent pneumonia Immunosuppressed on Hydroxyurea treatment Chronic Diarrhea-stopped taking lactulose and PEG-still having Plan Pt to continue ambulation, PT/OT, IS Currently 1L O2 NC, continue to wean as tolerated SPO2 >92%-currently on 1 L NC, with a SPO2 of 94% IV Vanc + Meropenem Continue Xarelto 15mg BID Q21 day for DVT tx One atrium in place at this time, no new drainage since yesterday. Likely remove remaining chest tube tomorrow as long as no further drainage. Supervisory-Addendum Brief Verification & Attestation Participated in pt care: history, MDM, physical Personally performed: exam, history, MDM, supervision of care Care discussed with: Medical Student Procedures: n/a Results interpretation: Verified all documentation Verification and Attestation of Medical Student E/M Service A medical student performed and documented this service in my presence. I reviewed and verified all information documented by the medical student and made modifications to such information, when appropriate. I personally performed the physical exam and medical decision making. Tino Christianson, Mar 27, 2022,12:46 CHELE VERDIN Mar 27, 2022 06:48 TINO CHRISTIANSON DO Mar 27, 2022 12:44
[2022-03-27 06:53] LABS: ALBUMIN 3.1 GM/DL (3.2-4.5); BILIRUBIN,TOTAL 0.5 MG/DL (0.1-1.0); CALCIUM 9.4 MG/DL (8.5-10.1); CREATININE SERUM 0.75 MG/DL (0.60-1.30); MAGNESIUM 1.7 MG/DL (1.6-2.4); TOTAL PROTEIN 6.9 GM/DL (6.4-8.2)
[2022-03-27 07:28] VITALS: BP 132/76
--- NOTE | 2022-03-27 09:48 | Diagnostic Imaging Report ---
CHEST 1 VIEW, AP/PA ONLY Indication: Pneumonia Comparison: 03/26/2022 Findings: 1 of the chest tubes has been removed. The other chest tube remains in stable position in the right lower hemithorax. Bibasilar bandlike opacities are similar. No pneumothorax. Stable cardiac silhouette. Impression: 1. Removal of one of the right-sided chest tubes without adverse development. 2. Stable basilar opacities that could be due to atelectasis and/or pneumonia. Dictated by: Dictated on workstation # [id number]
[2022-03-27] MEDS: LACTULOSE SYRUP 10GM/15ML (ENULOSE) 30ML UDC PO SCH ×2 (09:58→21:09)
[2022-03-27] MEDS: RIVAROXABAN 15 MG TABLET (XARELTO) PO SCH ×2 (09:59→21:07)
[2022-03-27] MEDS: LORATADINE (CLARITIN) 10 MG TAB PO SCH (09:59)
[2022-03-27] MEDS: lisINopril 40 MG (PRINIVIL) TABLET PO SCH (10:00)
[2022-03-27] MEDS: buPROPion SR 150 MG (WELLBUTRIN SR) TAB PO SCH ×2 (10:00→21:08)
[2022-03-27] MEDS: ZIPRASIDONE 20 MG (GEODON) CAP PO SCH ×2 (10:00→19:04)
[2022-03-27] MEDS: SENNA W/DOCUSATE (SENOKOT S) TABLET PO SCH ×2 (10:05→21:10)
[2022-03-27] MEDS: DOCUSATE SODIUM 100 MG (COLACE) CAP PO SCH ×2 (10:05→21:09)
[2022-03-27] MEDS: SENNOSIDES 8.6 MG (SENOKOT) TAB PO SCH ×2 (10:06→21:10)
[2022-03-27] MEDS: VANCOMYCIN 1250 MG/NS 250 ML IVPB IV SCH ×4 (11:02→23:09)
[2022-03-27 11:13] VITALS: BP 145/85
--- NOTE | 2022-03-27 11:23 | Progress Note - Hospitalist ---
Subjective HPI/CC On Admission Date Seen by Provider: Mar 27, 2022 Time Seen by Provider: 11:20 CC: Right sided empyema HPI: This is a 36yoWF clinic patient of [facility] who presented to the Er with worsened right sided chest pain and was found to have right sided empyema with cavitary lesion. Dr Morales evaluated her CT scan and is planning on chest tube/VATS procedure. IV antibiotics were broadened out by EICU after I discussed the case with Dr Brandt. TB r/o so she was placed in isolation. I also spoke to Dr Morales in-depth along with Gregory Durbin in ER. Currently patient is still having pleurisy and I ordered Toradol. I have reviewed [facility] last visit. Patient was placed on Bactrim for Strep A pharyngitis on 03/07/22. PMH: ADHD Anxiety HTN Bipolar 2 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 HLP GERD Subjective/Events-last exam Patient reports decreased chest pain since having her larger chest tube removed yesterday per Dr. Christianson. She has had no night sweats chills or fever. She still reports some right shoulder pain. There has been minimal drainage out of her other chest tube with potential for removal per Dr. Christianson of this tube later today. She voices no other complaints. Objective Exam Vital Signs Vital Signs Date Time Temp Pulse Resp B/P (MAP) Pulse Ox O2 Delivery O2 Flow Rate FiO2 03/27/22 11:13 36.4 94 20 145/85 (105) 96 Nasal Cannula 1.00 03/26/22 15:55 24 Capillary Refill : Less Than 3 Seconds General Appearance: No Apparent Distress, Chronically ill HEENT: Pale Conjunctivae (L), Pale Conjunctivae (R) Respiratory: Other (Diminished breath sounds right base elsewhere chest is clear.) Cardiovascular: Regular Rate, Rhythm, No Edema, No Gallop, No JVD, No Murmur, Normal Peripheral Pulses Results/Procedures Lab Laboratory Tests 03/27/22 06:11 Patient resulted labs reviewed. Procedures VATS procedure and chest tube placement as described in HPI Assessment/Plan Assessment and Plan Assess & Plan/Chief Complaint S/P Right VATS with Decortication - POD#6 Clinically improving afebrile minimal chest tube drainage reported over the past 24 hours In her 1 remaining chest tube to the larger one having been removed yesterday.. Left leg DVT Continue anticoagulant therapy. Venous insufficiency Bronchitis Recurrent pneumonia Immunosuppressed on Hydroxyurea treatment Chronic Diarrhea Currently resolved. Critical Care Critically Ill Patient Clinical Quality Measures DVT/VTE Risk/Contraindication: VTE Addressed: Yes VTE Present on Admission: Yes FERNANDO LLOYD MD Mar 27, 2022 11:23
[2022-03-27 15:57] VITALS: BP 131/85
[2022-03-27 19:35] VITALS: BP 138/84
[2022-03-27] MEDS: doxAzosin 2 MG (CARDURA) TAB PO SCH (21:07)
[2022-03-27] MEDS: polyethylene glycoL POWDER 17 GM (MIRALAX) PACK PO SCH (21:09)
[2022-03-27 23:34] VITALS: BP 132/74
[2022-03-28] MEDS: MEROPENEM 1,000 MG in NS (IVPB) 100 ML IV SCH ×3 (02:20→18:13)
[2022-03-28] MEDS: RT-ALBUTEROL HFA 8.5 GM INHALER IH SCH ×4 (02:52→21:30)
[2022-03-28 03:39] VITALS: BP 125/63
[2022-03-28] MEDS: PANTOPRAZOLE 40 MG (PROTONIX) TAB PO SCH (06:08)
[2022-03-28 06:23] LABS: BASOPHILS % (AUTO) 0 % (0-10); EOSINOPHILS # (AUTO) 0.1 10^3/uL (0.0-0.3); EOSINOPHILS % (AUTO) 2 % (0-10); HEMATOCRIT 26 % (35-52); HEMOGLOBIN 8.6 g/dL (11.5-16.0); LYMPHOCYTES # (AUTO) 1.2 10^3/uL (1.0-4.0); LYMPHOCYTES % (AUTO) 26 % (12-44); MEAN CORPUSCULAR HEMOGLOBIN 35 pg (25-34); MEAN CORPUSCULAR HGB CONC 33 g/dL (32-36); MEAN CORPUSCULAR VOLUME 107 fL (80-99); MONOCYTES # (AUTO) 0.5 10^3/uL (0.0-1.0); MONOCYTES % (AUTO) 10 % (0-12); NEUTROPHILS # (AUTO) 2.8 10^3/uL (1.8-7.8); NEUTROPHILS % (AUTO) 60 % (42-75); PLATELET COUNT 230 10^3/uL (130-400); WHITE BLOOD COUNT 4.7 10^3/uL (4.3-11.0)
[2022-03-28 06:34] LABS: POTASSIUM 4.2 MMOL/L (3.6-5.0)
[2022-03-28 06:35] LABS: CALCIUM 9.1 MG/DL (8.5-10.1)
[2022-03-28 06:36] LABS: TOTAL PROTEIN 6.9 GM/DL (6.4-8.2)
[2022-03-28 06:38] LABS: BILIRUBIN,TOTAL 0.4 MG/DL (0.1-1.0)
[2022-03-28 06:40] LABS: CREATININE SERUM 0.79 MG/DL (0.60-1.30)
[2022-03-28 06:43] LABS: MAGNESIUM 1.9 MG/DL (1.6-2.4)
--- NOTE | 2022-03-28 07:45 | Progress Note - Surgery ---
LEILANI HIGUERA Darius 03/28/22 0745: Subjective Date Seen by a Provider: Mar 28, 2022 Time Seen by a Provider: 07:15 Subjective/Events-last exam Pt is laying in bed comfortably, in no acute distress. States that she is feeling well. Complains of swelling in her lower left leg from her DVT. Describe s left leg as heavy and tight and mentions there is discomfort in left lower extremity and when she flexes her hip. Denies difficulty breathing at rest, but is short of breath on exertion. Currently wearing 1L of O2 nasal canula. Inferior chest tube still n place and superior tube removed on 03/26. Dressing clean, dry, intact. Has drained less than 5mL is 03/26. Pt is ambulating by self. Last BM was yesterday. Using IS. Tolerating diet. Review of Systems General: No Chills; Fatigue, Other (Denies Fever) HEENT: No Head Aches, No Visual Changes, No Dysphasia Pulmonary: Dyspnea (dyspnea on exertion), Cough Cardiovascular: Edema (noticable swelling and erythema in left lower leg); No: Chest Pain, Lt Headedness Gastrointestinal: Diarrhea; No: Nausea, Vomiting, Abdominal Pain, Constipation Genitourinary: No Dysuria, No Hematuria Musculoskeletal: shoulder pain (right shoulder ), leg pain (left lower leg described as heavy and tight/ pt notes discomfort when she tries to flex hip) Neurological: No: Weakness, Numbness Objective Exam Vital Signs Date Time Temp Pulse Resp B/P (MAP) Pulse Ox O2 Delivery O2 Flow Rate FiO2 03/28/22 03:39 36.5 84 20 125/63 (83) 92 Nasal Cannula 1.00 03/28/22 02:52 93 Nasal Cannula 1.00 03/27/22 23:34 36.9 106 20 132/74 (93) 94 Nasal Cannula 1.00 03/27/22 20:49 95 Nasal Cannula 1.00 03/27/22 20:40 Nasal Cannula 1.00 03/27/22 19:35 36.6 93 20 138/84 (102) 94 Nasal Cannula 1.00 03/27/22 15:57 36.5 98 20 131/85 (100) 96 Nasal Cannula 1.00 03/27/22 14:54 Nasal Cannula 1.00 03/27/22 11:13 36.4 94 20 145/85 (105) 96 Nasal Cannula 1.00 03/27/22 08:00 Nasal Cannula 1.00 I & O 03/28/22 07:00 Intake Total 3272.5 ml Balance 3272.5 ml Capillary Refill : Less Than 3 Seconds General Appearance: No Apparent Distress, Chronically ill, Obese HEENT: PERRL/EOMI, Normal ENT Inspection Neck: Normal Inspection, Non Tender Respiratory: Chest Non Tender, No Accessory Muscle Use, No Respiratory Distress, Wheezing, Other (right chest tube) Cardiovascular: Regular Rate, Rhythm, No JVD Peripheral Pulses: 2+ Radial Pulses (R), 2+ Radial Pulses (L) Gastrointestinal: non tender, soft Extremity: Non Tender, No Calf Tenderness, Swelling (Left calf still swollen) Neurologic/Psychiatric: Alert, Oriented x3 Skin: Normal Color, Warm/Dry; No Diaphoresis, No Jaundice Lymphatic: No Adenopathy Results Lab Laboratory Tests 03/28/22 06:13: White Blood Count 4.7, Red Blood Count 2.45L, Hemoglobin 8.6L, Hematocrit 26L, Mean Corpuscular Volume 107H, Mean Corpuscular Hemoglobin 35H, Mean Corpuscular Hemoglobin Concent 33, Red Cell Distribution Width 14.0, Platelet Count 230, Mean Platelet Volume 9.0, Immature Granulocyte % (Auto) 2, Neutrophils (%) (Auto) 60, Lymphocytes (%) (Auto) 26, Monocytes (%) (Auto) 10, Eosinophils (%) (Auto) 2, Basophils (%) (Auto) 0, Neutrophils # (Auto) 2.8, Lymphocytes # (Auto) 1.2, Monocytes # (Auto) 0.5, Eosinophils # (Auto) 0.1, Basophils # (Auto) 0.0, Immature Granulocyte # (Auto) 0.1, Sodium Level 139, Potassium Level 4.2, Chloride Level 103, Carbon Dioxide Level 23, Anion Gap 13, Blood Urea Nitrogen 9, Creatinine 0.79, Estimat Glomerular Filtration Rate 99, BUN/Creatinine Ratio 11, Glucose Level 94, Calcium Level 9.1, Corrected Calcium 9.9, Magnesium Level 1.9, Total Bilirubin 0.4, Aspartate Amino Transf (AST/SGOT) 24, Alanine Aminotransferase (ALT/SGPT) 71H, Alkaline Phosphatase 250H, Total Protein 6.9, Albumin 3.0L Microbiology 03/21/22 Gram Stain - Final, Resulted 03/21/22 Anaerobic Culture - Final, Resulted No anaerobes isolated 03/21/22 Surgical Culture - Final, Resulted No growth 03/21/22 Fungal Culture 1 - Preliminary, Resulted 03/18/22 Blood Culture - Final, Complete No growth Assessment/Plan Assessment/Plan Assessment/Plan S/P Right VATS with Decortication - POD#7 Left leg DVT Venous insufficiency Bronchitis Recurrent pneumonia Immunosuppressed on Hydroxyurea treatment Chronic Diarrhea-stopped taking lactulose and PEG-still having Plan Pt to continue ambulation, PT/OT, IS Currently 1L O2 NC, continue to wean as tolerated SPO2 >92%-currently on 1 L NC, with a SPO2 of 94% IV Vanc + Meropenem Continue Xarelto 15mg BID Q21 day for DVT tx One atrium in place at this time, less than 5mL of drainage in last 48 hours. Consider removal of remaining chest tube as long as no further drainage. Clinical Quality Measures DVT/VTE Risk/Contraindication: VTE Addressed: Yes VTE Present on Admission: Yes KAPIL MORALES DO 03/28/22 1505: Subjective Time Seen by a Provider: 14:54 Subjective/Events-last exam PT seen and examined, no new complaints. Breating ok on room air. Still has pain in left leg, with swelling. Review of Systems General: No Chills; Fatigue HEENT: No Head Aches, No Visual Changes, No Dysphasia Pulmonary: Dyspnea (dyspnea on exertion), Cough Cardiovascular: Edema (noticable swelling and erythema in left lower leg); No: Chest Pain Gastrointestinal: Diarrhea; No: Nausea, Vomiting, Abdominal Pain, Constipation Genitourinary: No Dysuria, No Hematuria Musculoskeletal: shoulder pain (right shoulder ), leg pain (left lower leg described as heavy and tight/ pt notes discomfort when she tries to flex hip) Objective Exam General Appearance: No Apparent Distress, Obese HEENT: PERRL/EOMI Respiratory: Chest Non Tender, No Accessory Muscle Use, No Respiratory Distress, Wheezing, Other (right chest tube) Cardiovascular: Regular Rate, Rhythm, No Murmur Gastrointestinal: non tender, soft Extremity: Calf Tenderness, Swelling (Left calf still swollen) Neurologic/Psychiatric: Alert, Oriented x3 Assessment/Plan Assessment/Plan Assessment/Plan S/P Right VATS with Decortication - POD#7 Left leg DVT Venous insufficiency Bronchitis Recurrent pneumonia Immunosuppressed on Hydroxyurea treatment Chronic Diarrhea-stopped taking lactulose and PEG-still having Plan Pt to continue ambulation, PT/OT, IS. IV Vanc + Meropenem Continue Xarelto 15mg BID Q21 day for DVT tx Chest tube d/c'd and will check a CXR in am, probably can go tomorrow. Supervisory-Addendum Brief Verification & Attestation Participated in pt care: history, MDM, physical Personally performed: exam, history, MDM, supervision of care Care discussed with: Medical Student Procedures: n/a Verification and Attestation of Medical Student E/M Service A medical student performed and documented this service. I then reviewed and verified all information documented by the medical student and made modifications to such information, when appropriate. I personally performed a physical exam, medical decision making and then discussed any differences between the notes and made revisions as necessary to create one note. Kapil Morales , 03/28/22 , 15:05 LEILANI HIGUERA Mar 28, 2022 07:45 KAPIL MORALES DO Mar 28, 2022 15:05
[2022-03-28 08:00] VITALS: BP 131/63
--- NOTE | 2022-03-28 08:39 | Physical Therapy Daily Note ---
PT Daily Note-Current Subjective Patient in bed pre-tx, reports pain in right shoulder 3-4/10 and reports that it should subside once chest tube is taken out today, agrees to PT. Pain Section J - Health Conditions 1. Rarely or not at all 2. Occasionally 3. Frequently 4. Almost constantly 8. Unable to answer Pain Effect on Sleep: 1 Pain Interference with Therapy: 1 Pain Interference w/Day-to-Day: 1 Appearance Patient in bed post-tx with nurse call, phone, all needs met. Mental Status Patient Orientation: Person, Place, Situation Attachments: Chest Tube, Oxygen Transfers SCALE: Activities may be completed with or without assistive devices. 8-Cfsptkurmh-dwkdkhh completes the activity by him/herself with no assistance from a helper. 5-Set-up or Clean-up Assistance-helper sets up or cleans up; patient completes activity. [place] assists only prior to or following the activity. 4-Supervision or Touching Assistance-helper provides verbal cues and/or touching/steadying and/or contact guard assistance as patient completes activity. Assistance may be provided throughout the activity or intermittently. 3-Partial/Moderate Assistance-helper does LESS THAN HALF the effort. Peterman lifts, holds or supports trunk or limbs, but provides less than half the effort. 2-Substantial/Maximal Assistance-helper does MORE THAN HALF the effort. Peterman lifts or holds trunk or limbs and provides more than half the effort. 4-Acwfqcngg-qqdzeq does ALL the effort. Patient does none of the effort to complete the activity. Or, the assistance of 2 or more helpers is required for the patient to complete the activity. If activity was not attempted, code reason: 7-Patient Refused. 9-Not Applicable-not attempted and the patient did not perform the activity before the current illness, exacerbation or injury. 10-Not Attempted due to Environmental Limitations-(lack of equipment, weather restraints, etc.). 88-Not Attempted due to Medical Conditions or Safety Concerns. Roll Left & Right (QC): 6 Sit to Lying (QC): 6 Lying to Sitting/Side of Bed(Q: 6 Sit to Stand (QC): 6 Weight Bearing Right Lower Extremity: Right Full Weight Bearing Left Lower Extremity: Left Full Weight Bearing Gait Training Does the Patient Walk?: Yes Walk 10 feet (QC): 6 Walk 50 ft with 2 Turns(QC): 6 Gait Assistive Device: None Patient does not require an assistive device at this time. Patient able to ambulate on her own around the room. Patient has good foot clearance and step length. Exercises Seated Therapy Exercises: Ankle pumps (20 reps), Long arc quads (20 reps), Hip flexion (10 reps), Glut set (10 reps) Treatments Ambulation, LE Strengthening Assessment Current Status: Good Progress Patient able to ambulate around room independently and does not need rest break in between exercises. Patient reports she will be getting chest tube out today sometime. Patient still has some swelling in LLE due to blood clot. PT Brand Executive Goals Longterm Goals PT Longterm Goals Time Frame: Mar 30, 2022 Roll Left & Right (QC): 6 Sit to Lying (QC): 6 Lying-Sitting on Side/Bed(QC): 6 Sit to Stand (QC): 6 Chair/Giy-ub-Hiyfb Xfer(QC): 6 Toilet Transfer (QC): 6 Car Transfer (QC): 6 Does the Patient Walk: Yes Walk 10 feet (QC): 6 Walk 50ft with 2 Turns (QC): 6 Walk 150 ft (QC): 6 Walking 10ft on Uneven Surface: 6 1 Step (curb) (QC): 6 4 Steps (QC): 6 12 Steps (QC): 6 Picking up an Object (QC): 6 Does the Pt use WC or Scooter?: No Wheel 50 feet with 2 turns (QC: 9 Wheel 150 feet: 9 PT Plan Problem List Problem List: Activity Tolerance, Functional Strength, Safety, Balance, Gait, Transfer, ROM Treatment/Plan Treatment Plan: Continue Plan of Care Treatment Plan: Bed Mobility, Education, Functional Activity Sugey, Functional Strength, Gait, Safety, Therapeutic Exercise, Transfers Treatment Duration: Mar 30, 2022 Frequency: 6 times per week Estimated Hrs Per Day: .25 hour per day Patient and/or Family Agrees t: Yes Safety Risks/Education Patient Education: Gait Training, Transfer Techniques, Correct Positioning, Safety Issues Teaching Recipient: Patient Teaching Methods: Demonstration, Discussion Response to Teaching: Verbalize Understanding Time Time In: 804 Time Out: 814 DATE: Mar 28, 2022 Total Billed Treatment Time: 10 Total Billed Treatment 1 visit FA 10min TARUN GOODRICH PT Mar 28, 2022 08:39
[2022-03-28] MEDS: LORATADINE (CLARITIN) 10 MG TAB PO SCH (08:45)
[2022-03-28] MEDS: ZIPRASIDONE 20 MG (GEODON) CAP PO SCH ×2 (08:45→18:11)
[2022-03-28] MEDS: RIVAROXABAN 15 MG TABLET (XARELTO) PO SCH ×2 (08:46→20:09)
[2022-03-28] MEDS: lisINopril 40 MG (PRINIVIL) TABLET PO SCH (08:46)
[2022-03-28] MEDS: buPROPion SR 150 MG (WELLBUTRIN SR) TAB PO SCH ×2 (08:46→20:09)
[2022-03-28] MEDS: SENNA W/DOCUSATE (SENOKOT S) TABLET PO SCH ×2 (08:47→20:09)
[2022-03-28] MEDS: LACTULOSE SYRUP 10GM/15ML (ENULOSE) 30ML UDC PO SCH ×2 (08:47→20:09)
[2022-03-28] MEDS: DOCUSATE SODIUM 100 MG (COLACE) CAP PO SCH ×2 (08:47→20:09)
[2022-03-28] MEDS: SENNOSIDES 8.6 MG (SENOKOT) TAB PO SCH ×2 (08:48→20:09)
--- NOTE | 2022-03-28 09:17 | Diagnostic Imaging Report ---
Indication: Chest tube followup. Frontal chest obtained at 5:59 a.m. and compared to 03/27/2022. Heart is normal in size. There is mild left basilar atelectasis. There is unchanged right basilar infiltrate versus atelectasis with. PleurX catheter in place in the right pleural space. There is no pneumothorax. There is no significant sized pleural effusion. Impression: Unchanged right basilar infiltrate versus atelectasis with PleurX catheter in the right pleural space. No pneumothorax or significant sized pleural effusion. Mild left basilar atelectasis. Dictated by: Dictated on workstation # [id number]
[2022-03-28] MEDS: VANCOMYCIN 1250 MG/NS 250 ML IVPB IV SCH ×4 (09:37→22:37)
[2022-03-28 11:17] VITALS: BP 123/68
--- NOTE | 2022-03-28 11:42 | Occupational Ther Daily Note ---
OT Current Status-Daily Note Subjective Pt in bed, alert. Pt agrees to therapy. C/o no pain at this time. Per pt and nurse report, pt ad roxanne and using restroom independently. Mental Status/Objective Patient Orientation: Person, Place, Time, Situation Attachments: Chest Tube, IV, Oxygen ADL-Treatment Pt EOB independently. Pt completed sponge bath at EOB by self after set up. Pt declined ambulating to sink for oral hygiene but completed it at EOB by self after set up. Pt in bed at end of session. Call light/phone in reach. All needs met in room. Therapy Code Descriptions/Definitions Functional Datto Measure: 0=Not Assessed/NA 4=Minimal Assistance 1=Total Assistance 5=Supervision or Setup 2=Maximal Assistance 6=Modified Datto 3=Moderate Assistance 7=Complete IndependenceSCALE: Activities may be completed with or without assistive devices. 4-Mtefrrprxe-kczbnqr completes the activity by him/herself with no assistance f rom a helper. 5-Set-up or Clean-up Assistance-helper sets up or cleans up; patient completes activity. [place] assists only prior to or following the activity. 4-Supervision or Touching Assistance-helper provides verbal cues and/or touching/steadying and/or contact guard assistance as patient completes activity. Assistance may be provided throughout the activity or intermittently. 3-Partial/Moderate Assistance-helper does LESS THAN HALF the effort. [place] lifts, holds or supports trunk or limbs, but provides less than half the effort. 2-Substantial/Maximal Assistance-helper does MORE THAN HALF the effort. [place] lifts or holds trunk or limbs and provides more than half the effort. 6-Tozdptlzi-ckyjyy does ALL the effort. Patient does none of the effort to complete the activity. Or, the assistance of 2 or more helpers is required for the patient to complete the activity. If activity was not attempted, code reason: 7-Patient Refused. 9-Not Applicable-not attempted and the patient did not perform the activity before the current illness, exacerbation or injury. 10-Not Attempted due to Environmental Limitations-(lack of equipment, weather restraints, etc.). 88-Not Attempted due to Medical Conditions or Safety Concerns. 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 2=Patient will verbalize/demonstrate understanding of assistive devices/modifications for ADL. 3=Patient will improve strength/tolerance for activity to enable patient to perform ADL's. OT Education/Plan Problem List/Assessment Assessment: Decreased Activ Tolerance, Impaired Self-Care Skills Discharge Recommendations Plan/Recommendations: Continue POC Treatment Plan/Plan of Care Patient would benefit from OT for education, treatment and training to promote independence in ADL's, mobility, safety and/or upper extremity function for ADL' s. Plan of Care: ADL Retraining, Functional Mobility, Group Exercise/Act as Ind, UE Funct Exercise/Act Treatment Duration: Apr 08, 2022 Frequency: 3 times per week (3-5x/week) Estimated Hrs Per Day: .25 hour per day Agreement: Yes Rehab Potential: Fair Time Start Time: 11:05 Stop Time: 11:31 DATE: Mar 28, 2022 Total Time Billed (hr/min): 26 Billed Treatment Time 1 visit ADL 2 (26 min) JENN PATEL Mar 28, 2022 11:42
[2022-03-28 16:00] VITALS: BP 127/84
[2022-03-28 19:17] VITALS: BP 127/68
--- NOTE | 2022-03-28 19:36 | Progress Note ---
Subjective Subjective/Events-last exam Pt seen at 1105. States she is feeling okay, continues to improve. She is hoping to go home soon so she can take care of her son. Objective Exam Last Set of Vital Signs Vital Signs Date Time Temp Pulse Resp B/P (MAP) Pulse Ox O2 Delivery O2 Flow Rate FiO2 03/28/22 19:17 36.7 92 20 127/68 (87) 95 Room Air 03/28/22 14:37 0.00 03/26/22 15:55 24 Capillary Refill : Less Than 3 Seconds I&O Intake and Output 03/28/22 00:00 Intake Total 3210 ml Balance 3210 ml Intake Oral 3110 ml IV Total 100 ml # Voids 11 # Bowel Movements 1 General: Alert, No Acute Distress Lungs: Other (decreased air movement at left base) Heart: Regular Rate, No Murmurs Abdomen: Normal Bowel Sounds, Soft Extremities: No Edema Neuro: Normal Speech Psych/Mental Status: Mood NL Results/Procedures Lab Laboratory Tests 03/28/22 06:13: White Blood Count 4.7, Red Blood Count 2.45L, Hemoglobin 8.6L, Hematocrit 26L, Mean Corpuscular Volume 107H, Mean Corpuscular Hemoglobin 35H, Mean Corpuscular Hemoglobin Concent 33, Red Cell Distribution Width 14.0, Platelet Count 230, Mean Platelet Volume 9.0, Immature Granulocyte % (Auto) 2, Neutrophils (%) (Auto) 60, Lymphocytes (%) (Auto) 26, Monocytes (%) (Auto) 10, Eosinophils (%) (Auto) 2, Basophils (%) (Auto) 0, Neutrophils # (Auto) 2.8, Lymphocytes # (Auto) 1.2, Monocytes # (Auto) 0.5, Eosinophils # (Auto) 0.1, Basophils # (Auto) 0.0, Immature Granulocyte # (Auto) 0.1, Sodium Level 139, Potassium Level 4.2, Chloride Level 103, Carbon Dioxide Level 23, Anion Gap 13, Blood Urea Nitrogen 9, Creatinine 0.79, Estimat Glomerular Filtration Rate 99, BUN/Creatinine Ratio 11, Glucose Level 94, Calcium Level 9.1, Corrected Calcium 9.9, Magnesium Level 1.9, Total Bilirubin 0.4, Aspartate Amino Transf (AST/SGOT) 24, Alanine Aminotransferase (ALT/SGPT) 71H, Alkaline Phosphatase 250H, Total Protein 6.9, Albumin 3.0L Microbiology 03/21/22 Gram Stain - Final, Resulted 03/21/22 Anaerobic Culture - Final, Resulted No anaerobes isolated 03/21/22 Surgical Culture - Final, Resulted No growth 03/21/22 Fungal Culture 1 - Preliminary, Resulted 03/18/22 Blood Culture - Final, Complete No growth Radiology Assessment/Plan Assessment/Plan (1) Hydropneumothorax Status: Acute Assessment & Plan: s/p decortication and chest tubes x 2. One chest tube remains in place with minimal drainage, anticipating removal soon. (2) Cavitary lesion of lung Status: Acute Assessment & Plan: TB test negative, pleural fluid gram stain and surgical culture negative. Fungal culture negative to date. Blood cultures negative. Was on antibiotics for a couple of rounds (Bactrim and doxycycline) prior to admit. Currently on meropnem and vancomycin. 03/18-06/21: Cefepime 03/18- Current: Meropenem 03/18- Current: Vancomycin (3) Left leg DVT Status: Acute Assessment & Plan: Extensive LLE DVT on US, on rivaroxaban Qualifiers: Qualified Codes: I82.412 - Acute embolism and thrombosis of left femoral vein (4) Myeloproliferative disorder Status: Chronic (5) DVT prophylaxis Status: Acute Assessment & Plan: Was on enoxaparin on admit, now on treatment for DVT. Clinical Quality Measures DVT/VTE Risk/Contraindication: VTE Addressed: Yes VTE Present on Admission: Yes CHERELLE CLEMENTE MD Mar 28, 2022 19:36
[2022-03-28] MEDS: doxAzosin 2 MG (CARDURA) TAB PO SCH (20:09)
[2022-03-28] MEDS: polyethylene glycoL POWDER 17 GM (MIRALAX) PACK PO SCH (20:09)
[2022-03-28 23:26] VITALS: BP 121/68
[2022-03-29] MEDS: MEROPENEM 1,000 MG in NS (IVPB) 100 ML IV SCH ×2 (01:14→10:23)
[2022-03-29 03:46] VITALS: BP 123/65
[2022-03-29] MEDS: PANTOPRAZOLE 40 MG (PROTONIX) TAB PO SCH (05:28)
[2022-03-29 05:35] LABS: BASOPHILS % (AUTO) 1 % (0-10); EOSINOPHILS # (AUTO) 0.1 10^3/uL (0.0-0.3); EOSINOPHILS % (AUTO) 2 % (0-10); HEMATOCRIT 27 % (35-52); HEMOGLOBIN 8.5 g/dL (11.5-16.0); LYMPHOCYTES # (AUTO) 1.2 10^3/uL (1.0-4.0); LYMPHOCYTES % (AUTO) 25 % (12-44); MEAN CORPUSCULAR HEMOGLOBIN 34 pg (25-34); MEAN CORPUSCULAR HGB CONC 32 g/dL (32-36); MEAN CORPUSCULAR VOLUME 106 fL (80-99); MEAN PLATELET VOLUME 9.2 fL (9.0-12.2); MONOCYTES # (AUTO) 0.4 10^3/uL (0.0-1.0); MONOCYTES % (AUTO) 9 % (0-12); NEUTROPHILS # (AUTO) 2.8 10^3/uL (1.8-7.8); NEUTROPHILS % (AUTO) 60 % (42-75); PLATELET COUNT 251 10^3/uL (130-400); WHITE BLOOD COUNT 4.7 10^3/uL (4.3-11.0)
[2022-03-29 06:00] LABS: ALBUMIN 3.1 GM/DL (3.2-4.5); BILIRUBIN,TOTAL 0.4 MG/DL (0.1-1.0); CREATININE SERUM 0.79 MG/DL (0.60-1.30); MAGNESIUM 1.8 MG/DL (1.6-2.4); POTASSIUM 4.1 MMOL/L (3.6-5.0)
[2022-03-29 08:01] VITALS: BP 105/70
--- NOTE | 2022-03-29 08:45 | Progress Note - Surgery ---
DAVIDALEILANI Darius 03/29/22 0845: Subjective Date Seen by a Provider: Mar 29, 2022 Time Seen by a Provider: 07:40 Subjective/Events-last exam Pt is laying in bed comfortably this morning, in no acute distress. Complains of lower left leg swelling. States it feels tight and heavy but she has no trouble walking. Complains of persistent pain in right shoulder and along right chest wall. Feels her pain is controlled. Pt has concern for rash at bandage site, stating it has been burning. Dressing of chest tube removal site is clean, dry, intact, and has no surrounding redness. Redness and rash is surrounding nearby adhesives on right flank. Pt using incentive spirometer. Is breathing fine on room air. Feels she is ready to go home. Review of Systems General: No Chills, No Night Sweats; Fatigue HEENT: No Head Aches, No Visual Changes, No Dysphasia Pulmonary: Dyspnea (on exertion), Cough Cardiovascular: No: Chest Pain, Palpitations Gastrointestinal: No: Nausea, Vomiting, Abdominal Pain Genitourinary: No Dysuria, No Hematuria Musculoskeletal: shoulder pain (right shoulder), leg pain (left leg feels heavy, tight, and swollen from DVT) Neurological: No: Weakness, Numbness Redness on right flank at site of bandages Objective Exam Vital Signs Date Time Temp Pulse Resp B/P (MAP) Pulse Ox O2 Delivery O2 Flow Rate FiO2 03/29/22 08:01 36.4 100 18 105/70 (82) 92 Room Air 03/29/22 07:37 Room Air 03/29/22 03:46 36.6 94 18 123/65 (84) 94 Room Air 03/28/22 23:26 36.3 100 18 121/68 (85) 94 Room Air 03/28/22 21:30 95 Room Air 0.00 03/28/22 20:15 Room Air 03/28/22 19:17 36.7 92 20 127/68 (87) 95 Room Air 03/28/22 16:00 36.7 98 20 127/84 (98) 95 Room Air 03/28/22 14:37 94 Room Air 0.00 03/28/22 11:17 36.5 106 20 123/68 (86) 95 Nasal Cannula 1.00 I & O 03/29/22 07:00 Intake Total 2062.5 ml Balance 2062.5 ml Capillary Refill : Less Than 3 Seconds General Appearance: No Apparent Distress, Obese HEENT: PERRL/EOMI, Moist Mucous Membranes; No Photophobia Neck: Normal Inspection, Non Tender, Supple Respiratory: No Accessory Muscle Use, No Respiratory Distress, Wheezing, Other (right chest tube) Cardiovascular: Regular Rate, Rhythm, No Murmur Peripheral Pulses: 2+ Radial Pulses (R), 2+ Radial Pulses (L) Gastrointestinal: non tender, soft; No guarding, No tenderness Extremity: Non Tender, No Calf Tenderness, Swelling (Left calf still swollen) Neurologic/Psychiatric: Alert, Oriented x3 Skin: Warm/Dry; No Diaphoresis, No Jaundice; Rash (on right flank at bandage site) Lymphatic: No Adenopathy Results Lab Laboratory Tests 03/29/22 05:29: White Blood Count 4.7, Red Blood Count 2.50L, Hemoglobin 8.5L, Hematocrit 27L, Mean Corpuscular Volume 106H, Mean Corpuscular Hemoglobin 34, Mean Corpuscular Hemoglobin Concent 32, Red Cell Distribution Width 14.1, Platelet Count 251, Mean Platelet Volume 9.2, Immature Granulocyte % (Auto) 3, Neutrophils (%) (Auto) 60, Lymphocytes (%) (Auto) 25, Monocytes (%) (Auto) 9, Eosinophils (%) (Auto) 2, Basophils (%) (Auto) 1, Neutrophils # (Auto) 2.8, Lymphocytes # (Auto) 1.2, Monocytes # (Auto) 0.4, Eosinophils # (Auto) 0.1, Basophils # (Auto) 0.0, Immature Granulocyte # (Auto) 0.1, Sodium Level 137, Potassium Level 4.1, Chloride Level 102, Carbon Dioxide Level 23, Anion Gap 12, Blood Urea Nitrogen 12, Creatinine 0.79, Estimat Glomerular Filtration Rate 99, BUN/Creatinine Ratio 15, Glucose Level 109H, Calcium Level 9.0, Corrected Calcium 9.7, Magnesium Level 1.8, Total Bilirubin 0.4, Aspartate Amino Transf (AST/SGOT) 24, Alanine Aminotransferase (ALT/SGPT) 63H, Alkaline Phosphatase 254H, Total Protein 7.0, Albumin 3.1L Microbiology 03/21/22 Gram Stain - Final, Resulted 03/21/22 Anaerobic Culture - Final, Resulted No anaerobes isolated 03/21/22 Surgical Culture - Final, Resulted No growth 03/21/22 Fungal Culture 1 - Preliminary, Resulted 03/18/22 Blood Culture - Final, Complete No growth Assessment/Plan Assessment/Plan Assessment/Plan S/P Right VATS with Decortication - POD#8 Left leg DVT Venous insufficiency Bronchitis Recurrent pneumonia Immunosuppressed on Hydroxyurea treatment Chronic Diarrhea-stopped taking lactulose and PEG-still having Plan Pt to continue ambulation, PT/OT, IS. IV Vanc + Meropenem Continue Xarelto 15mg BID Q21 day for DVT tx Chest tube d/c'd and will check a CXR in am, probably can go today. Clinical Quality Measures DVT/VTE Risk/Contraindication: VTE Addressed: Yes VTE Present on Admission: Yes SAAD MORALES DO 03/29/22 1301: Subjective Time Seen by a Provider: 11:17 Subjective/Events-last exam Pt seen sitting up in chair, appears to be in no distress. She states breathing is ok, still some minimal pain in right shoulder. Complains of left leg pain. Review of Systems Pulmonary: Dyspnea (on exertion), Cough Cardiovascular: No: Chest Pain, Palpitations Gastrointestinal: No: Nausea, Vomiting, Abdominal Pain Objective Exam General Appearance: No Apparent Distress, Obese HEENT: PERRL/EOMI, Moist Mucous Membranes Respiratory: No Accessory Muscle Use, No Respiratory Distress, Decreased Breath Sounds (right base), Wheezing Cardiovascular: Regular Rate, Rhythm, No Murmur Extremity: Calf Tenderness (left), Swelling (Left calf still swollen) Skin: Warm/Dry, Other (some torn skin from bandages, incisions c/d/i with floyd in place) Assessment/Plan Assessment/Plan Assessment/Plan S/P Right VATS with Decortication - POD#8 Left leg DVT Venous insufficiency Bronchitis Recurrent pneumonia Immunosuppressed on Hydroxyurea treatment Chronic Diarrhea-stopped taking lactulose and PEG-still having Plan D/C home Continue Xarelto 15mg BID Q21 day for DVT tx Supervisory-Addendum Brief Verification & Attestation Participated in pt care: history, MDM, physical Personally performed: exam, history, MDM, supervision of care Care discussed with: Medical Student Procedures: n/a Verification and Attestation of Medical Student E/M Service A medical student performed and documented this service. I then reviewed and verified all information documented by the medical student and made modifications to such information, when appropriate. I personally performed a physical exam, medical decision making and then discussed any differences between the notes and made revisions as necessary to create one note. Saad Morales , 03/29/22 , 13:01 LEILANI HIGUERA Mar 29, 2022 08:45 SAAD MORALES DO Mar 29, 2022 13:01
--- NOTE | 2022-03-29 08:58 | Diagnostic Imaging Report ---
INDICATION: Post chest tube removal. Comparison with 03/28/2022. FINDINGS: Right chest tube has been removed. No pneumothorax is seen. There is a small amount of atelectasis in the lung bases with no significant pleural effusion. Heart is not enlarged. Left jugular line remains in good position. IMPRESSION: Satisfactory chest tube removal with mild bibasilar atelectasis. Dictated by: Dictated on workstation # [id number]
--- NOTE | 2022-03-29 09:13 | Occ Therapy Progress Note ---
Therapy Progress Note Pt declined to participate in OT session today. Pt states that she is discharging today and is completing own grooming and toileting independently. OT to dismiss pt from OT services. JENN PATEL Mar 29, 2022 09:13
--- NOTE | 2022-03-29 09:29 | Physical Therapy Daily Note ---
PT Daily Note-Current Subjective Pt. sitting up in recliner smiling and states she is happy to say she is going home today. "No O2, no chest tube" No c/o pain Pain Location: No Pain Reported Section J - Health Conditions 1. Rarely or not at all 2. Occasionally 3. Frequently 4. Almost constantly 8. Unable to answer Pain Effect on Sleep: 1 Pain Interference with Therapy: 1 Pain Interference w/Day-to-Day: 1 Mental Status Patient Orientation: Normal For Age Transfers SCALE: Activities may be completed with or without assistive devices. 7-Cznqvvqtvx-njswxpo completes the activity by him/herself with no assistance from a helper. 5-Set-up or Clean-up Assistance-helper sets up or cleans up; patient completes activity. [place] assists only prior to or following the activity. 4-Supervision or Touching Assistance-helper provides verbal cues and/or touching/steadying and/or contact guard assistance as patient completes activity. Assistance may be provided throughout the activity or intermittently. 3-Partial/Moderate Assistance-helper does LESS THAN HALF the effort. [place] lifts, holds or supports trunk or limbs, but provides less than half the effort. 2-Substantial/Maximal Assistance-helper does MORE THAN HALF the effort. [place] lifts or holds trunk or limbs and provides more than half the effort. 3-Dgdbvlxry-azvhrb does ALL the effort. Patient does none of the effort to complete the activity. Or, the assistance of 2 or more helpers is required for the patient to complete the activity. If activity was not attempted, code reason: 7-Patient Refused. 9-Not Applicable-not attempted and the patient did not perform the activity before the current illness, exacerbation or injury. 10-Not Attempted due to Environmental Limitations-(lack of equipment, weather restraints, etc.). 88-Not Attempted due to Medical Conditions or Safety Concerns. all TRFs mod I Weight Bearing Right Lower Extremity: Right Full Weight Bearing Left Lower Extremity: Left Full Weight Bearing Gait Training Gait Assistive Device: None 80 feet in room per pt. request no AD no LOB, good control, after gait O2 sats 9 4%, HR133 Exercises Seated Therapy Exercises: Ankle pumps, Sit to stand, Long arc quads, Hip f lexion Seated Reps: 10 Assessment Current Status: Good Progress pt. meets goals PT Fdc Goals Auto Inspection Specialist Goals PT Auto Inspection Specialist Goals Time Frame: Mar 30, 2022 Roll Left & Right (QC): 6 Sit to Lying (QC): 6 Lying-Sitting on Side/Bed(QC): 6 Sit to Stand (QC): 6 Chair/Fgx-bk-[place] Xfer(QC): 6 Toilet Transfer (QC): 6 Car Transfer (QC): 6 Does the Patient Walk: Yes Walk 10 feet (QC): 6 Walk 50ft with 2 Turns (QC): 6 Walk 150 ft (QC): 6 Walking 10ft on Uneven Surface: 6 1 Step (curb) (QC): 6 4 Steps (QC): 6 12 Steps (QC): 6 Picking up an Object (QC): 6 Does the Pt use WC or Scooter?: No Wheel 50 feet with 2 turns (QC: 9 Wheel 150 feet: 9 PT Plan Treatment/Plan Treatment Plan: Continue Plan of Care Treatment Plan: Bed Mobility, Education, Functional Activity Sugey, Functional Strength, Gait, Safety, Therapeutic Exercise, Transfers Treatment Duration: Mar 30, 2022 Frequency: 6 times per week Estimated Hrs Per Day: .25 hour per day Patient and/or Family Agrees t: Yes Safety Risks/Education Patient Education: Gait Training, Transfer Techniques, Correct Positioning, Disease Process, Safety Issues Teaching Recipient: Patient Teaching Methods: Demonstration, Discussion Response to Teaching: Verbalize Understanding, Return Demonstration Time Time In: 902 Time Out: 912 DATE: Mar 29, 2022 Total Billed Treatment Time: 10 Total Billed Treatment 1,GT10m VAUGHN FELTON MANUFACTURING ADVISOR Mar 29, 2022 09:29
[2022-03-29] MEDS: RT-ALBUTEROL HFA 8.5 GM INHALER IH SCH ×2 (10:08→10:12)
[2022-03-29] MEDS: buPROPion SR 150 MG (WELLBUTRIN SR) TAB PO SCH (10:21)
[2022-03-29] MEDS: ZIPRASIDONE 20 MG (GEODON) CAP PO SCH (10:21)
[2022-03-29] MEDS: RIVAROXABAN 15 MG TABLET (XARELTO) PO SCH (10:21)
[2022-03-29] MEDS: lisINopril 40 MG (PRINIVIL) TABLET PO SCH (10:21)
[2022-03-29] MEDS: LORATADINE (CLARITIN) 10 MG TAB PO SCH (10:22)
[2022-03-29] MEDS: DOCUSATE SODIUM 100 MG (COLACE) CAP PO SCH (10:27)
[2022-03-29] MEDS: SENNOSIDES 8.6 MG (SENOKOT) TAB PO SCH (10:27)
[2022-03-29] MEDS: LACTULOSE SYRUP 10GM/15ML (ENULOSE) 30ML UDC PO SCH (10:27)
[2022-03-29] MEDS: SENNA W/DOCUSATE (SENOKOT S) TABLET PO SCH (10:27)
[2022-03-29] MEDS ORDERED: RIVA20TA2 PO (10:52)
[2022-03-29] MEDS ORDERED: RIVA15TA2 PO (10:52)
--- NOTE | 2022-03-29 10:59 | Discharge Summary ---
Discharge Summary Instructions for Patient [facility], Assessment/Instructions Follow up with primary provider within a week of discharge. Follow up with Surgery as directed. Follow up with Hematology within two weeks of discharge. 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 (2) Cavitary lesion of lung Status: Acute Assessment & Plan: TB test negative, pleural fluid gram stain and surgical culture negative. Fungal culture negative to date. Blood cultures negative. Was on antibiotics for a couple of rounds (Bactrim and doxycycline) prior to admit. 03/18-06/21: Cefepime 03/18- 03/29: Meropenem 03/18- 03/29: Vancomycin (3) Left leg DVT Status: Acute Assessment & Plan: Extensive LLE DVT on US, on rivaroxaban Qualifiers: Qualified Codes: I82.412 - Acute embolism and thrombosis of left femoral vein (4) Myeloproliferative disorder Status: Chronic Hospital Course: See discharge diagnoses. Labs and Pending Lab Test: Laboratory Tests 03/29/22 05:29: White Blood Count 4.7, Red Blood Count 2.50L, Hemoglobin 8.5L, Hematocrit 27L, Mean Corpuscular Volume 106H, Mean Corpuscular Hemoglobin 34, Mean Corpuscular Hemoglobin Concent 32, Red Cell Distribution Width 14.1, Platelet Count 251, Mean Platelet Volume 9.2, Immature Granulocyte % (Auto) 3, Neutrophils (%) (Auto) 60, Lymphocytes (%) (Auto) 25, Monocytes (%) (Auto) 9, Eosinophils (%) (Auto) 2, Basophils (%) (Auto) 1, Neutrophils # (Auto) 2.8, Lymphocytes # (Auto) 1.2, Monocytes # (Auto) 0.4, Eosinophils # (Auto) 0.1, Basophils # (Auto) 0.0, Immature Granulocyte # (Auto) 0.1, Sodium Level 137, Potassium Level 4.1, Chloride Level 102, Carbon Dioxide Level 23, Anion Gap 12, Blood Urea Nitrogen 12, Creatinine 0.79, Estimat Glomerular Filtration Rate 99, BUN/Creatinine Ratio 15, Glucose Level 109H, Calcium Level 9.0, Corrected Calcium 9.7, Magnesium Level 1.8, Total Bilirubin 0.4, Aspartate Amino Transf (AST/SGOT) 24, Alanine Aminotransferase (ALT/SGPT) 63H, Alkaline Phosphatase 254H, Total Protein 7.0, Albumin 3.1L Microbiology 03/21/22 Gram Stain - Final, Resulted 03/21/22 Anaerobic Culture - Final, Resulted No anaerobes isolated 03/21/22 Surgical Culture - Final, Resulted No growth 03/21/22 Fungal Culture 1 - Preliminary, Resulted 03/18/22 Blood Culture - Final, Complete No growth Home Meds Active Xarelto Tablet (Rivaroxaban) 20 Mg Tablet 20 Mg PO DAILY@1700 Start on 04/15/22 Xarelto Tablet (Rivaroxaban) 15 Mg Tablet 15 Mg PO BID 17 Days Reported Ziprasidone HCl 60 Mg Capsule 60 Mg PO BID Doxazosin Mesylate 2 Mg Tablet 4 Mg PO HS TAKES 2 (2NG) TABS Wellbutrin Xl (Bupropion HCl) 300 Mg Tab.er.24h 300 Mg PO DAILY TAKES 150MG +300MG TOGETHER TO EQUAL 450MG DAILY Wellbutrin Xl (Bupropion HCl) 150 Mg Tab.er.24h 150 Mg PO DAILY TAKES 150MG +300MG TOGETHER TO EQUAL 450MG DAILY Omeprazole 40 Mg Capsule.dr 40 Mg PO DAILY Hydroxyurea 500 Mg Capsule 1,000 Mg PO DAILY TAKES 2 (500MG) CAPS Lisinopril 40 Mg Tablet 40 Mg PO DAILY Topiramate 25 Mg Tablet 50 Mg PO HS TAKES 2 (25MG) TABS Consulations General Surgery Patient Allergies: Coded Allergies: Penicillins (Verified Allergy, Intermediate, HIVES, 03/27/22) Per patient report aspirin (Verified Allergy, Intermediate, Hives, 03/27/22) Per Patient Report Home Health Need/Face to Face Date of Face to Face: Mar 29, 2022 Clinical Findings: Generalized weakness and fatigue I have seen Pt [id number]: Yes Discharged To: Home Diagnosis/Conditions: See problem list Patient is Homebound due to: Shortness of breath/distress Homebound Status Due to the above stated illness, injury or surgical procedure (medical condition or diagnosis) and associated clinical findings, the patient is homebound because of his/her inability to leave home except with aid of a supportive device and/or person AND leaving the home requires a considerable and taxing effort or is medically contraindicated. Pt req the following assistanc: Aid of another person Home Health Nursing Orders Home Health Services Order: Nursing Services, Physical Therapy-Evaluate & Treat Remove chest tube dressing on 03/30/22, keep clean and dry and covered daily after that. Home Health Infusion Therapy Line Start Date: Mar 19, 2022 Certify Stmt I certify that this patient is under my care and that I, a nurse practitioner or a physician; a optometric assistant working with me, had a face to face encounter that - meets the physician face to face encounter requirements with this patient as juventino ed. Discharge Physical Exam General: Alert, No Acute Distress Lungs: Other (decreased air movement throughout right side) Heart: Regular Rate, No Murmurs Extremities: Other (trace to 1+ pitting edema) Neuro: Normal Speech Psych/Mental Status: Mood NL CHERELLE CLEMENTE MD Mar 29, 2022 10:58
[2022-03-29 11:31] VITALS: BP_SYST 105; BP_SYST 131; BP_DIAS 70; BP_DIAS 81
[2022-03-29 12:20] VITALS: BP 131/81
[2022-04-15] MEDS ORDERED: RIVAROXABAN 20 MG TABLET (XARELTO) PO SCH (17:00)
== END 2022-03-29 12:20 | disposition home or self-care (01) | DRG 163 ==
LOC: EDUNIT# 12:45 → ER 12:47 → ICU 14:16 → 4TH 03-23 15:14
PROVIDERS: ADMIT Internal Medicine; ATTEND Family Medicine
PROC: 8E0ZXY6 Isolation (ICD-10-PCS; 2022-03-18)
PROC: 0BND4ZZ Release Right Middle Lung Lobe, Percutaneous Endoscopic Approach (ICD-10-PCS; 2022-03-21)
PROC: 0BNF4ZZ Release Right Lower Lung Lobe, Percutaneous Endoscopic Approach (ICD-10-PCS; principal; 2022-03-21 11:30)
DX: J86.9 Pyothorax without fistula (principal); J18.9 Pneumonia, unspecified organism; J96.01 Acute respiratory failure with hypoxia; J94.8 Other specified pleural conditions; Z68.42 Body mass index [BMI] 45.0-49.9, adult; I82.4Z2 Acute embolism and thrombosis of unspecified deep veins of left distal lower extremity; I82.412 Acute embolism and thrombosis of left femoral vein; I82.432 Acute embolism and thrombosis of left popliteal vein; C94.6 Myelodysplastic disease, not elsewhere classified; F31.81 Bipolar II disorder; J98.4 Other disorders of lung; J40 Bronchitis, not specified as acute or chronic; R19.7 Diarrhea, unspecified; E66.01 Morbid (severe) obesity due to excess calories; E78.00 Pure hypercholesterolemia, unspecified; I10 Essential (primary) hypertension; K21.9 Gastro-esophageal reflux disease without esophagitis; F90.9 Attention-deficit hyperactivity disorder, unspecified type; F41.9 Anxiety disorder, unspecified; I25.2 Old myocardial infarction; Z87.891 Personal history of nicotine dependence
CPT/HCPCS: 36415; 71045; 71275; 80053; 80202; 83605; 83735; 84100; 84703; 85025; 85379; 86480; 87040; 87070; 87075; 87101; 87116; 87205; 87206; 88305; 93005; 93306; 94640; 94664; 94760; 96365; 96367; 96375

== ENCOUNTER 2022-04-05 10:56 | Outpatient (RCR) | payer MEDICARE, MEDICAID ==
[~2022-04-05 10:56] MED LIST changes: +BUPR-42 PO; +BUPR300T43 PO; +DOXA2TAB2 PO; +HYDR500C2 PO; +LISI40TA9 PO; +OMEP40CA6 PO; +RIVA15TA2 PO; +RIVA20TA2 PO; +TOPI25TA10 PO; +ZIPR60CA18 PO
[2022-04-05 11:31] LABS: BASOPHILS # (AUTO) 0.1 10^3/uL (0.0-0.1); BASOPHILS % (AUTO) 1 % (0-10); EOSINOPHILS % (AUTO) 1 % (0-10); HEMATOCRIT 36 % (35-52); HEMOGLOBIN 11.8 g/dL (11.5-16.0); LYMPHOCYTES # (AUTO) 1.7 10^3/uL (1.0-4.0); LYMPHOCYTES % (AUTO) 27 % (12-44); MEAN CORPUSCULAR HEMOGLOBIN 34 pg (25-34); MEAN CORPUSCULAR HGB CONC 33 g/dL (32-36); MEAN CORPUSCULAR VOLUME 105 fL (80-99); MEAN PLATELET VOLUME 9.2 fL (9.0-12.2); MONOCYTES # (AUTO) 0.4 10^3/uL (0.0-1.0); MONOCYTES % (AUTO) 6 % (0-12); NEUTROPHILS % (AUTO) 64 % (42-75); PLATELET COUNT 315 10^3/uL (130-400); WHITE BLOOD COUNT 6.2 10^3/uL (4.3-11.0)
== END 2022-04-20 | disposition home or self-care (01) ==
LOC: ONC 10:56
PROVIDERS: ATTEND Internal Medicine Hematology & Oncology
DX: D47.1 Chronic myeloproliferative disease (principal); I10 Essential (primary) hypertension; K21.9 Gastro-esophageal reflux disease without esophagitis; E78.2 Mixed hyperlipidemia; E66.01 Morbid (severe) obesity due to excess calories
CPT/HCPCS: 85025; G0463; 36415; 99213

== ENCOUNTER → 2022-04-07 | Outpatient (CLI) | payer MEDICARE, MEDICAID ==
--- NOTE | 2022-04-07 15:29 | Diagnostic Imaging Report ---
INDICATION: Right chest tube removed last week. Trouble breathing. EXAMINATION: Two-view chest from 04/07/2022. COMPARISON: 03/29/2022. FINDINGS: There is scarring throughout the right mid and lower lung. No pneumothorax. No significant effusions. Elevation of the right hemidiaphragm appears stable. There are no infiltrates. Heart and pulmonary vasculature are normal. IMPRESSION: 1. Chronic changes in the right hemithorax with no acute process appreciated. Dictated by: Dictated on workstation # [id number]
== END ==
LOC: RAD 14:06
PROVIDERS: ATTEND Surgery
DX: R06.00 Dyspnea, unspecified (principal)
CPT/HCPCS: 71046

== ENCOUNTER 2022-05-31 10:54 | Outpatient (RCR) | payer MEDICARE, MEDICAID ==
[2022-05-31 11:11] LABS: BASOPHILS % (AUTO) 0 % (0-10); EOSINOPHILS % (AUTO) 1 % (0-10); HEMATOCRIT 40 % (35-52); HEMOGLOBIN 13.6 g/dL (11.5-16.0); LYMPHOCYTES % (AUTO) 42 % (12-44); MEAN CORPUSCULAR HEMOGLOBIN 35 pg (25-34); MEAN CORPUSCULAR HGB CONC 34 g/dL (32-36); MEAN CORPUSCULAR VOLUME 104 fL (80-99); MEAN PLATELET VOLUME 9.1 fL (9.0-12.2); MONOCYTES # (AUTO) 0.4 10^3/uL (0.0-1.0); MONOCYTES % (AUTO) 9 % (0-12); NEUTROPHILS # (AUTO) 2.3 10^3/uL (1.8-7.8); NEUTROPHILS % (AUTO) 48 % (42-75); PLATELET COUNT 213 10^3/uL (130-400); WHITE BLOOD COUNT 4.8 10^3/uL (4.3-11.0)
[2022-05-31 11:28] LABS: ALANINE AMINOTRANSFERASE 37 U/L (0-55); ALBUMIN 4.6 GM/DL (3.2-4.5); ALKALINE PHOSPHATASE 70 U/L (40-136); BILIRUBIN,TOTAL 0.7 MG/DL (0.1-1.0); BUN/CREATININE RATIO 11; CALCIUM 9.4 MG/DL (8.5-10.1); CARBON DIOXIDE 22 MMOL/L (21-32); CHLORIDE 109 MMOL/L (98-107); CREATININE SERUM 0.98 MG/DL (0.60-1.30); GFR ESTIMATED 76; GLUCOSE 98 MG/DL (70-105); POTASSIUM 3.9 MMOL/L (3.6-5.0); SODIUM 139 MMOL/L (135-145); TOTAL PROTEIN 7.9 GM/DL (6.4-8.2)
== END 2022-06-21 | disposition home or self-care (01) ==
LOC: ONC 10:54
PROVIDERS: ATTEND Internal Medicine Hematology & Oncology
DX: D47.1 Chronic myeloproliferative disease (principal); I10 Essential (primary) hypertension; K21.9 Gastro-esophageal reflux disease without esophagitis; E78.2 Mixed hyperlipidemia; E66.01 Morbid (severe) obesity due to excess calories
CPT/HCPCS: 80053; 85025; G0463; 36415; 99213

== ENCOUNTER 2022-09-21 11:10 | Outpatient (RCR) | payer MEDICARE, MEDICAID ==
[2022-09-21 11:13] LABS: BASOPHILS % (AUTO) 0 % (0-10); EOSINOPHILS # (AUTO) 0.1 10^3/uL (0.0-0.3); EOSINOPHILS % (AUTO) 1 % (0-10); HEMATOCRIT 40 % (35-52); HEMOGLOBIN 13.7 g/dL (11.5-16.0); LYMPHOCYTES # (AUTO) 2.2 10^3/uL (1.0-4.0); LYMPHOCYTES % (AUTO) 34 % (12-44); MEAN CORPUSCULAR HEMOGLOBIN 33 pg (25-34); MEAN CORPUSCULAR HGB CONC 35 g/dL (32-36); MEAN CORPUSCULAR VOLUME 95 fL (80-99); MEAN PLATELET VOLUME 9.6 fL (9.0-12.2); MONOCYTES # (AUTO) 0.4 10^3/uL (0.0-1.0); MONOCYTES % (AUTO) 7 % (0-12); NEUTROPHILS # (AUTO) 3.6 10^3/uL (1.8-7.8); NEUTROPHILS % (AUTO) 57 % (42-75); PLATELET COUNT 275 10^3/uL (130-400); WHITE BLOOD COUNT 6.3 10^3/uL (4.3-11.0)
[2022-09-21 11:44] LABS: ALBUMIN 4.5 GM/DL (3.2-4.5); BILIRUBIN,TOTAL 0.4 MG/DL (0.1-1.0); CALCIUM 9.4 MG/DL (8.5-10.1); CREATININE SERUM 0.85 MG/DL (0.60-1.30); POTASSIUM 3.6 MMOL/L (3.6-5.0); TOTAL PROTEIN 7.6 GM/DL (6.4-8.2)
== END 2022-10-19 | disposition home or self-care (01) ==
LOC: ONC 11:10
PROVIDERS: ATTEND Internal Medicine Hematology & Oncology
DX: D47.1 Chronic myeloproliferative disease (principal); I10 Essential (primary) hypertension; K21.9 Gastro-esophageal reflux disease without esophagitis; E78.2 Mixed hyperlipidemia; E66.01 Morbid (severe) obesity due to excess calories
CPT/HCPCS: 80053; 85025

== ENCOUNTER 2023-02-22 10:47 | Outpatient (RCR) | payer MEDICARE, MEDICAID ==
[2023-02-22 11:07] LABS: BASOPHILS % (AUTO) 1 % (0-10); EOSINOPHILS # (AUTO) 0.1 10^3/uL (0.0-0.3); EOSINOPHILS % (AUTO) 1 % (0-10); HEMATOCRIT 38 % (35-52); HEMOGLOBIN 12.9 g/dL (11.5-16.0); LYMPHOCYTES # (AUTO) 1.3 10^3/uL (1.0-4.0); LYMPHOCYTES % (AUTO) 30 % (12-44); MEAN CORPUSCULAR HEMOGLOBIN 35 pg (25-34); MEAN CORPUSCULAR HGB CONC 34 g/dL (32-36); MEAN CORPUSCULAR VOLUME 102 fL (80-99); MEAN PLATELET VOLUME 9.2 fL (9.0-12.2); MONOCYTES # (AUTO) 0.3 10^3/uL (0.0-1.0); MONOCYTES % (AUTO) 8 % (0-12); NEUTROPHILS # (AUTO) 2.5 10^3/uL (1.8-7.8); NEUTROPHILS % (AUTO) 60 % (42-75); PLATELET COUNT 179 10^3/uL (130-400); WHITE BLOOD COUNT 4.2 10^3/uL (4.3-11.0)
[2023-02-22 11:25] LABS: ALBUMIN 4.2 GM/DL (3.2-4.5); BILIRUBIN,TOTAL 0.5 MG/DL (0.1-1.0); CALCIUM 8.8 MG/DL (8.5-10.1); CREATININE SERUM 0.83 MG/DL (0.60-1.30); POTASSIUM 4.2 MMOL/L (3.6-5.0); TOTAL PROTEIN 7.1 GM/DL (6.4-8.2)
== END 2023-03-21 | disposition home or self-care (01) ==
LOC: ONC 10:47
PROVIDERS: ATTEND Internal Medicine Hematology & Oncology
DX: D47.1 Chronic myeloproliferative disease (principal); I10 Essential (primary) hypertension; K21.9 Gastro-esophageal reflux disease without esophagitis; E78.2 Mixed hyperlipidemia; E66.01 Morbid (severe) obesity due to excess calories
CPT/HCPCS: 36415; 80053; 85025; 99214